=== PATIENT | male | born 1940 | race African-American/Black ===

== ENCOUNTER 2016-05-15 14:42 | Inpatient (IN) | payer MEDICARE ==
[~2016-05-15] VITALS: Ht 170.2 cm; Wt 104.3 kg
[2016-05-15] MEDS ORDERED: ASPIRIN81 MG ORAL (14:43)
[2016-05-15] MEDS ORDERED: ATORVASTATIN CA20 MG ORAL (14:43)
--- NOTE | 2016-05-15 14:53 | Emergency Room Report ---
History of Present Illness General Chief Complaint: Generalized Weakness Source: Patient, EMS Present Illness HPI Patient is a 75-year-old male who presented after having increased generalized weakness. Patient had been falling the past few days he had been having increased difficulty with ambulation. The had recent onset of productive cough as well as lower extremity weakness. He denies prior history of irregular heartbeat. The patient was brought in by EMS and was noted to have irregular rhythm on EKG testing.Patient had prior CVA many years ago.The patient also had a fall in the bathtub.The patient denies taking anticoagulation. Allergies: Coded Allergies: No Known Allergies (Unverified , 05/15/16) Patient History Past Medical History: see triage record Reviewed Nursing Documentation: PMH: Agreed, PSxH: Agreed Nursing Documentation-PMH Hx Hypertension: Yes Hx Cerebrovascular Accident: Yes Review of Systems All Other Systems: negative except mentioned in HPI Physical Exam Vital Signs Date Time Temp Pulse Resp B/P Pulse Ox O2 Delivery O2 Flow Rate FiO2 05/15/16 14:37 98.2 80 16 137/88 98 Sp02 EP Interpretation: reviewed, normal General Appearance: normal inspection, well appearing, no apparent distress, alert, GCS 15 Head: atraumatic ENT: normal ENT inspection, hearing grossly normal, normal voice Neck: normal inspection, full range of motion, supple, no bony tend Respiratory: normal inspection, lungs clear, normal breath sounds, no respiratory distress, no retraction, no wheezing Cardiovascular #1: regular rate, rhythm, no edema Gastrointestinal: normal inspection, normal bowel sounds, non tender, soft, no guarding, no hernia Genitourinary: no CVA tenderness Musculoskeletal: normal inspection, back normal, normal range of motion, swelling - bilateral lower leg swelling Neurologic: normal inspection, alert, oriented x3, responsive, outside solar sales consultant III-XII nml as tested, speech normal Psychiatric: normal inspection, judgement/insight normal, mood/affect normal Skin: normal inspection, normal color, no rash Medical Decision Making Diagnostic Impression: Primary Impression: Severe sepsis Additional Impressions: Elevated PSA Hypertension Generalized weakness Fall Influenza A ER Course Patient presented for generalized weakness. Patient presented for generalized weakness. Differential diagnosis included was not limited to anemia, urinary tract infection, electrolyte abnormality, hypothyroidism, myocardial infarction , myasthenia gravis, dehydration, among others. Because of complexity of patient's case laboratory testing and imaging studies were ordered.Patient was noted to have a prior history of prostate disease with an elevated PSA. CT the head read by radiology showed old infarct without evident acute hemorrhage Patient was noted to have elevated white blood count as well as lactic acid level consistent with severe sepsis. The influenza A and B. were noted to be positive. The patient was started on IV fluids. Repeat lactic acid level was somewhat improved. The patient was apparently started on IV antibiotics. Dr. Luis Alcala was contacted and requested the patient be admitted to Dr. Velásquez for further evaluation and treatment. Labs Test 05/15/16 15:50 05/15/16 16:40 05/15/16 17:17 Sodium Level 136 mEQ/L (135-145) Potassium Level 3.4 mEQ/L (3.4-4.9) Chloride Level 94 mEQ/L (98-107) Carbon Dioxide Level 25 mEQ/L (20-30) Anion Gap 17 (5-15) Blood Urea Nitrogen 19 mg/dL (7-23) Creatinine 1.7 mg/dL (0.7-1.2) Estimat Glomerular Filtration Rate mL/min (>60) Glucose Level 114 mg/dL (74-106) Calcium Level 8.8 mg/dL (8.6-10.2) Total Bilirubin 0.5 mg/dL (0.0-1.2) Aspartate Amino Transf (AST/SGOT) 18 U/L (5-40) Alanine Aminotransferase (ALT/SGPT) 12 U/L (3-41) Alkaline Phosphatase 68 U/L (40-129) Total Creatine Kinase 307 U/L (38-174) Creatine Kinase MB 1.6 ng/mL (< 6.7) Creatine Kinase MB Relative Index 0.5 Troponin I < 0.30 ng/mL (<=0.30) Pro-B-Type Natriuretic Peptide 1250 pg/mL (0-450) Total Protein 6.9 g/dL (6.6-8.7) Albumin 3.1 g/dL (3.5-5.2) Globulin 3.8 g/dL Albumin/Globulin Ratio 0.8 (1.0-2.7) White Blood Count 5.8 K/UL (4.8-10.8) Red Blood Count 4.98 M/UL (4.70-6.10) Hemoglobin 14.0 G/DL (14.2-18.0) Hematocrit 43.8 % (42.0-52.0) Mean Corpuscular Volume 88 FL (80-99) Mean Corpuscular Hemoglobin 28.1 PG (27.0-31.0) Mean Corpuscular Hemoglobin Concent 32.0 G/DL (32.0-36.0) Red Cell Distribution Width 13.0 % (11.6-14.8) Platelet Count 173 K/UL (150-450) Mean Platelet Volume 10.1 FL (6.5-10.1) Neutrophils (%) (Auto) 83.7 % (45.0-75.0) Lymphocytes (%) (Auto) 5.6 % (20.0-45.0) Monocytes (%) (Auto) 9.3 % (1.0-10.0) Eosinophils (%) (Auto) 0.0 % (0.0-3.0) Basophils (%) (Auto) 1.4 % (0.0-2.0) Lactic Acid Level 1.80 mmol/L (0.66-2.22) EKG Diagnostic Results Rate: other - afib rate 96\ ST Segments: no acute changes ASA given to the pt in ED: No Rhythm Strip Diag. Results EP Interpretation: yes Rhythm: no ectopy, other - afib rvr 90s Chest X-Ray Diagnostic Results EP Interpretation: Yes Findings: no effusion, no pneumothorax, other - right lung consolidation Last Vital Signs Date Time Temp Pulse Resp B/P Pulse Ox O2 Delivery O2 Flow Rate FiO2 05/15/16 14:37 98.2 80 16 137/88 98 Status: unchanged Disposition: ADMITTED INPATIENT Condition: Serious Jostin Sanford May 15, 2016 14:53
[2016-05-15 14:59] VITALS: BP 137/88
[2016-05-15] MEDS ORDERED: Ampicillin/Sulbactam Sod 3 GM in NS 100 ML IV SCH (15:00)
[2016-05-15] MEDS ORDERED: Unasyn 3gm Inj ONE (15:57)
[2016-05-15 16:15] VITALS: BP 159/77
[2016-05-15 16:34] LABS: TROPONIN I < 0.30 ng/mL (<=0.30)
[2016-05-15 16:37] LABS: ALANINE AMINOTRANSFERASE 12 U/L (3-41); ALBUMIN/GLOBULIN RATIO 0.8 (1.0-2.7); ANION GAP 17 (5-15); ASPARTATE AMINO TRANSFERASE 18 U/L (5-40); CALCIUM 8.8 mg/dL (8.6-10.2); CARBON DIOXIDE 25 mEQ/L (20-30); CHLORIDE 94 mEQ/L (98-107); CREATININE 1.7 mg/dL (0.7-1.2); HEMOLYSIS 8; POTASSIUM 3.4 mEQ/L (3.4-4.9); SODIUM 136 mEQ/L (135-145); TOTAL PROTEIN 6.9 g/dL (6.6-8.7)
[2016-05-15 16:41] LABS: REFLEX LACTIC ACID YES OR NO YES
[2016-05-15 16:47] LABS: CKMB 1.6 ng/mL (< 6.7)
[2016-05-15 17:30] LABS: BASOPHILS % (AUTO) 1.4 % (0.0-2.0); LYMPHOCYTES % (AUTO) 5.6 % (20.0-45.0); MEAN CORPUSCULAR HEMOGLOBIN 28.1 PG (27.0-31.0); MEAN CORPUSCULAR VOLUME 88 FL (80-99); MEAN PLATELET VOLUME 10.1 FL (6.5-10.1); MONOCYTES % (AUTO) 9.3 % (1.0-10.0); NEUTROPHILS % (AUTO) 83.7 % (45.0-75.0); PLATELET COUNT 173 K/UL (150-450); RED BLOOD COUNT 4.98 M/UL (4.70-6.10); WHITE BLOOD COUNT 5.8 K/UL (4.8-10.8)
[2016-05-15 17:54] VITALS: BP 156/69
[2016-05-15] MEDS ORDERED: Oseltamivir 75mg cap ORAL SCH (18:15)
[2016-05-15 18:22] LABS: APPEARANCE,URINE CLEAR; KETONES,URINE NEGATIVE (NEGATIVE); LEUKOCYTE ESTERASE ,URINE NEGATIVE (NEGATIVE); NITRITE,URINE NEGATIVE (NEGATIVE); PH,URINE 6 (4.5-8.0); PROTEIN,URINE 2+ (NEGATIVE); UROBILINOGEN,URINE NORMAL MG/DL (0.0-1.0)
[2016-05-15 18:29] LABS: RBC,URINE 0-2 /HPF (0 - 0); WBC,URINE 0-2 /HPF (0 - 0)
[2016-05-15 18:30] LABS: BACTERIA,URINE OCCASIONAL /HPF
[2016-05-15 18:59] VITALS: BP 142/73
[2016-05-15 20:00] VITALS: BP 142/80
[2016-05-15] MEDS ORDERED: Miralax 17gm pkt ORAL PRN (21:15)
[2016-05-16] VITALS: BP 144/85
[2016-05-16] MEDS ORDERED: DuoNeb 0.5-3(2.5)mg/3ml neb HHN PRN (00:30)
[2016-05-16] MEDS ORDERED: Guaifenesin/DM 10ml syrup ORAL PRN (00:45)
[2016-05-16] MEDS: DuoNeb 0.5-3(2.5)mg/3ml neb HHN SCH ×4 (01:20→19:05)
[2016-05-16 04:00] VITALS: BP 135/83
[2016-05-16 05:30] LABS: PSA TOTAL 11.8 ng/mL (< 4.5); THYROID STIMULATING HORMONE 0.653 uIU/mL (0.300-4.500)
[2016-05-16 05:41] LABS: ALANINE AMINOTRANSFERASE 13 U/L (3-41); ANION GAP 21 (5-15); ASPARTATE AMINO TRANSFERASE 26 U/L (5-40); BILIRUBIN,DIRECT 0.1 mg/dL (0.1-0.3); CALCIUM 8.5 mg/dL (8.6-10.2); CARBON DIOXIDE 23 mEQ/L (20-30); CHLORIDE 91 mEQ/L (98-107); CREATININE 1.7 mg/dL (0.7-1.2); HEMOLYSIS 35; POTASSIUM 2.9 mEQ/L (3.4-4.9); SODIUM 135 mEQ/L (135-145); TOTAL PROTEIN 6.7 g/dL (6.6-8.7)
[2016-05-16 05:56] LABS: MEAN CORPUSCULAR HEMOGLOBIN 28.5 PG (27.0-31.0); MEAN CORPUSCULAR HGB CONC 32.2 G/DL (32.0-36.0); MEAN CORPUSCULAR VOLUME 88 FL (80-99); MEAN PLATELET VOLUME 9.3 FL (6.5-10.1); PLATELET COUNT 155 K/UL (150-450); RED BLOOD COUNT 4.61 M/UL (4.70-6.10); RED CELL DISTRIBUTION WIDTH 12.4 % (11.6-14.8); WHITE BLOOD COUNT 11.1 K/UL (4.8-10.8)
[2016-05-16] MEDS ORDERED: KCl 10% 40mEq/30ml liquid ORAL ONE (07:30)
[2016-05-16 08:00] VITALS: BP 142/71
[2016-05-16] MEDS: Docusate 100mg cap ORAL SCH ×2 (08:31→17:34)
[2016-05-16] MEDS: Aspirin Baby 81mg ORAL SCH (08:31)
[2016-05-16] MEDS: Heparin 5000 units/ml inj SUBQ SCH ×2 (08:32→21:40)
[2016-05-16 08:36] LABS: BAND NEUTROPHILS % (MANUAL) 12 % (0-8); BASOPHILS % (MANUAL) 0 % (0-2); EOSINOPHILS % (MANUAL) 0 % (0-3); LYMPHOCYTES % (MANUAL) 2 % (20-45); NEUTROPHILS % (MANUAL) 83 % (45-75); PLATELET ESTIMATE ADEQUATE; PLATELET MORPHOLOGY NORMAL; TOTAL CELLS COUNTED 100
--- NOTE | 2016-05-16 08:52 | Diagnostic Imaging Report ---
Indications: Bilateral leg weakness Technique: Spiral acquisitions obtained through the brain. Angled axial and coronal 5 x 5 mm slices were reconstructed. Total dose length product 1369 mGycm. CTDI vol(s) 70 mGy Comparison: None Findings: Areas of encephalomalacia are seen in the bilateral occipital lobes, larger on the left than on the right, consistent with old infarct. There is an old infarct in the left inferior frontal deep white matter extending into basal ganglia. There is mild age-related enlargement of the ventricles and extra axial CSF spaces. There is considerable chronic periventricular the white matter ischemic change. The calvarium is intact. The mastoids are clear. There is minimal disease within the sphenoid sinuses. Impression: Bilateral old occipital and left basal ganglia infarcts. Mild chronic and age-related changes, as described Negative for acute intracranial bleed or mass effect Sinus disease This agrees with the preliminary interpretation provided overnight by Dr. Nichole The CT scanner at [facility] is accredited by the [employer] and the scans are performed using protocols designed to limit radiation exposure to as low as reasonably achievable to attain images of sufficient resolution adequate for diagnostic evaluation.
[2016-05-16] MEDS: Oseltamivir 75mg cap ORAL SCH ×2 (09:01→17:47)
--- NOTE | 2016-05-16 10:25 | Diagnostic Imaging Report ---
Indication: SOB Technique: One view of the chest Comparison: none Findings: Atelectasis or patchy consolidation is present at the right lung base. There is elevation of the left hemidiaphragm. The heart is enlarged. The pleural spaces are clear Impression: Right basilar atelectasis or consolidation Elevated left hemidiaphragm
--- NOTE | 2016-05-16 10:43 | History and Physical ---
History of Present Illness General Date patient seen: May 16, 2016 Time patient seen: 10:38 Reason for Hospitalization: Generalized Weakness Present Illness HPI 75-year-old male who presented with increased generalized weakness. Patient had been falling the past few days he had been having increased difficulty with ambulation. The had recent onset of productive cough as well as lower extremity weakness. He denies prior history of irregular heartbeat. The patient was brought in by EMS and was noted to have irregular rhythm on EKG testing.Patient had prior CVA many years ago.The patient also had a fall in the bathtub.The patient denies taking anticoagulation. In ED, [facility] neg. Influenza pos. Allergies: Coded Allergies: No Known Allergies (Unverified , 05/15/16) Medication History Scheduled Aspirin* (Aspirin*), 81 MG ORAL DAILY, (Reported) Atorvastatin Calcium* (Atorvastatin Calcium*), 20 MG ORAL BEDTIME, (Reported) Patient History Healthcare decision maker Resuscitation status Full Code Advanced Directive on File Past Medical/Surgical History Past Medical/Surgical History: (1) CVA (cerebral vascular accident) (2) Elevated PSA (3) Hypertension Family History Family History: Patient reports no known family medical history. Social History Social History: (1) No significant social history Review of Systems All Other Systems: negative except mentioned in HPI Physical Exam General Appearance: no apparent distress, alert HEENT: normocephalic, atraumatic, anicteric, mucous membranes moist, PERRL, EOMI, pharynx normal, no JVD Neck: non-tender, supple Respiratory/Chest: lungs clear, normal breath sounds, no respiratory distress, no accessory muscle use Cardiovascular/Chest: normal peripheral pulses, normal rate, regular rhythm Abdomen: normal bowel sounds, non tender, soft, no mass Extremities: non-tender, normal inspection Skin Exam: warm/dry Neurologic: marketing graphics specialist II-XII grossly normal, no motor/sensory deficits, alert Musculoskeletal: normal muscle bulk Last 24 Hour Vital Signs Date Time Temp Pulse Resp B/P Pulse Ox O2 Delivery O2 Flow Rate FiO2 05/16/16 10:15 98.2 05/16/16 08:00 102.2 109 22 142/71 94 Nasal Cannula 2.0 05/16/16 07:26 Nasal Cannula 2.0 05/16/16 07:26 96 20 98 Nasal Cannula 2.0 05/16/16 07:25 99 22 93 Nasal Cannula 1/2/17 04:31 103 05/16/16 04:00 98.1 112 20 135/83 92 Room Air 05/16/16 01:26 89 18 95 Nasal Cannula 2.0 05/16/16 01:22 Nasal Cannula 2.0 05/16/16 01:22 93 Nasal Cannula 2.0 05/16/16 01:19 87 18 Room Air 05/16/16 01:18 87 18 91 Room Air 05/16/16 00:07 111 05/16/16 00:00 97.3 94 22 144/85 92 Room Air 05/15/16 20:56 98 05/15/16 20:00 102.0 122 18 142/80 92 Room Air 05/15/16 19:34 98.2 95 22 142/73 96 Room Air 05/15/16 18:59 98.2 95 22 142/73 96 Room Air 05/15/16 18:09 156/69 05/15/16 17:54 98.2 99 25 156/69 96 Room Air 05/15/16 16:15 98.2 91 28 159/77 96 Room Air 05/15/16 14:59 98.2 16 137/88 98 05/15/16 14:37 98.2 80 16 137/88 98 Intake and Output 05/15/16 05/16/16 19:00 07:00 Intake Total 100 ml 100 ml Output Total 5 ml Balance 100 ml 95 ml Intake Oral 100 ml IV Total 100 ml Output Urine Total 5 ml # Voids 1 Laboratory Tests Test 05/15/16 15:50 05/15/16 16:40 05/15/16 17:17 05/15/16 18:10 Sodium Level 136 mEQ/L (135-145) Potassium Level 3.4 mEQ/L (3.4-4.9) Chloride Level 94 mEQ/L (98-107) L Carbon Dioxide Level 25 mEQ/L (20-30) Anion Gap 17 (5-15) H Blood Urea Nitrogen 19 mg/dL (7-23) Creatinine 1.7 mg/dL (0.7-1.2) H Estimat Glomerular Filtration Rate mL/min (>60) Glucose Level 114 mg/dL (74-106) H Lactic Acid Level 2.10 mmol/L (0.66-2.22) 1.80 mmol/L (0.66-2.22) Calcium Level 8.8 mg/dL (8.6-10.2) Total Bilirubin 0.5 mg/dL (0.0-1.2) Aspartate Amino Transf (AST/SGOT) 18 U/L (5-40) Alanine Aminotransferase (ALT/SGPT) 12 U/L (3-41) Alkaline Phosphatase 68 U/L (40-129) Total Creatine Kinase 307 U/L (38-174) H Creatine Kinase MB 1.6 ng/mL (< 6.7) Creatine Kinase MB Relative Index 0.5 Troponin I < 0.30 ng/mL (<=0.30) Pro-B-Type Natriuretic Peptide 1250 pg/mL (0-450) H Total Protein 6.9 g/dL (6.6-8.7) Albumin 3.1 g/dL (3.5-5.2) L Globulin 3.8 g/dL Albumin/Globulin Ratio 0.8 (1.0-2.7) L White Blood Count 5.8 K/UL (4.8-10.8) Red Blood Count 4.98 M/UL (4.70-6.10) Hemoglobin 14.0 G/DL (14.2-18.0) L Hematocrit 43.8 % (42.0-52.0) Mean Corpuscular Volume 88 FL (80-99) Mean Corpuscular Hemoglobin 28.1 PG (27.0-31.0) Mean Corpuscular Hemoglobin Concent 32.0 G/DL (32.0-36.0) Red Cell Distribution Width 13.0 % (11.6-14.8) Platelet Count 173 K/UL (150-450) Mean Platelet Volume 10.1 FL (6.5-10.1) Neutrophils (%) (Auto) 83.7 % (45.0-75.0) H Lymphocytes (%) (Auto) 5.6 % (20.0-45.0) L Monocytes (%) (Auto) 9.3 % (1.0-10.0) Eosinophils (%) (Auto) 0.0 % (0.0-3.0) Basophils (%) (Auto) 1.4 % (0.0-2.0) Urine Color Pale yellow Urine Appearance Clear Urine pH 6 (4.5-8.0) Urine Specific [place] 1.010 (1.005-1.035) Urine Protein 2+ (NEGATIVE) H Urine Glucose (UA) Negative (NEGATIVE) Urine Ketones Negative (NEGATIVE) Urine Occult Blood 5+ (NEGATIVE) H Urine Nitrite Negative (NEGATIVE) Urine Bilirubin Negative (NEGATIVE) Urine Urobilinogen Normal MG/DL (0.0-1.0) Urine Leukocyte Esterase Negative (NEGATIVE) Urine RBC 0-2 /HPF (0 - 0) H Urine WBC 0-2 /HPF (0 - 0) Urine Squamous Epithelial Cells None /LPF (NONE/OCC) Urine Bacteria Occasional /HPF (NONE) Test 05/16/16 03:30 White Blood Count 11.1 K/UL (4.8-10.8) #H Red Blood Count 4.61 M/UL (4.70-6.10) L Hemoglobin 13.1 G/DL (14.2-18.0) L Hematocrit 40.7 % (42.0-52.0) L Mean Corpuscular Volume 88 FL (80-99) Mean Corpuscular Hemoglobin 28.5 PG (27.0-31.0) Mean Corpuscular Hemoglobin Concent 32.2 G/DL (32.0-36.0) Red Cell Distribution Width 12.4 % (11.6-14.8) Platelet Count 155 K/UL (150-450) Mean Platelet Volume 9.3 FL (6.5-10.1) Neutrophils (%) (Auto) % (45.0-75.0) Lymphocytes (%) (Auto) % (20.0-45.0) Monocytes (%) (Auto) % (1.0-10.0) Eosinophils (%) (Auto) % (0.0-3.0) Basophils (%) (Auto) % (0.0-2.0) Differential Total Cells Counted 100 Neutrophils % (Manual) 83 % (45-75) H Lymphocytes % (Manual) 2 % (20-45) L Monocytes % (Manual) 3 % (1-10) Eosinophils % (Manual) 0 % (0-3) Basophils % (Manual) 0 % (0-2) Band Neutrophils 12 % (0-8) H Platelet Estimate Adequate Platelet Morphology Normal Red Blood Cell Morphology Normal Sodium Level 135 mEQ/L (135-145) Potassium Level 2.9 mEQ/L (3.4-4.9) L Chloride Level 91 mEQ/L (98-107) L Carbon Dioxide Level 23 mEQ/L (20-30) Anion Gap 21 (5-15) H Blood Urea Nitrogen 20 mg/dL (7-23) Creatinine 1.7 mg/dL (0.7-1.2) H Estimat Glomerular Filtration Rate mL/min (>60) Glucose Level 123 mg/dL (74-106) H Calcium Level 8.5 mg/dL (8.6-10.2) L Total Bilirubin 0.4 mg/dL (0.0-1.2) Direct Bilirubin 0.1 mg/dL (0.1-0.3) Aspartate Amino Transf (AST/SGOT) 26 U/L (5-40) Alanine Aminotransferase (ALT/SGPT) 13 U/L (3-41) Alkaline Phosphatase 62 U/L (40-129) Total Protein 6.7 g/dL (6.6-8.7) Albumin 2.9 g/dL (3.5-5.2) L Prostate Specific Antigen 11.8 ng/mL (< 4.5) H Thyroid Stimulating Hormone (TSH) 0.653 uIU/mL (0.300-4.500) Microbiology Date/Time Source Procedure Growth Status 05/15/16 17:20 Nasal Nares Influenza Types A,B Antigen ([place]) - Final Complete Height (Feet): 5 Height (Inches): 7.00 Weight (Pounds): 230 Medications Current Medications Medications (Trade) Dose Ordered Sig/Vini Route PRN Reason Start Time Stop Time Status Last Admin Dose Admin Acetaminophen (Tylenol) 650 mg Q6H PRN ORAL Mild Pain/Temp > 100.5 05/15/16 21:15 06/14/16 21:14 05/16/16 08:31 Albuterol/ Ipratropium (DuoNeb 0.5-3(2.5)mg/3ml) 3 ml Q4H PRN HHN Shortness of Breath 05/16/16 00:30 05/21/16 00:29 Albuterol/ Ipratropium (DuoNeb 0.5-3(2.5)mg/3ml) 3 ml Q6HRT HHN 05/16/16 01:00 05/21/16 00:59 05/16/16 07:22 Aspirin (ASA) 81 mg DAILY ORAL 05/16/16 09:00 06/15/16 08:59 05/16/16 08:31 Atorvastatin Calcium (Lipitor) 20 mg BEDTIME ORAL 05/16/16 21:00 06/15/16 20:59 Docusate Sodium (Colace) 100 mg TWICE A DAY ORAL 05/16/16 09:00 06/15/16 08:59 05/16/16 08:31 Guaifenesin/ Dextromethorphan (Robitussin DM Syrup) 10 ml Q4H PRN ORAL For Cough 05/16/16 00:45 06/15/16 00:44 Heparin Sodium (Porcine) (Heparin 5000 units/ml) 5,000 units EVERY 12 HOURS SUBQ 05/16/16 09:00 06/15/16 08:59 05/16/16 08:32 Ondansetron HCl (Zofran) 4 mg EVERY 8 HOURS PRN IVP Nausea & Vomiting 05/15/16 21:15 06/14/16 21:14 Oseltamivir Phosphate (Tamiflu) 75 mg TWICE A DAY ORAL 05/16/16 09:00 05/21/16 08:59 05/16/16 09:01 Polyethylene Glycol (Miralax) 17 gm DAILY PRN ORAL Constipation 05/15/16 21:15 06/14/16 21:14 Assessment/Plan Problem List: (1) Sepsis ICD Codes: A41.9 - Sepsis, unspecified organism SNOMED: 10560415 (2) Generalized weakness ICD Codes: R53.1 - Weakness SNOMED: 11164480 (3) Hypertension ICD Codes: I10 - Essential (primary) hypertension SNOMED: 99359183 (4) Fall ICD Codes: W19.XXXA - Unspecified fall, initial encounter SNOMED: 6856795, 154306373 (5) Elevated PSA ICD Codes: R97.20 - Elevated prostate specific antigen [PSA] SNOMED: 818515412, 660894740 (6) Influenza A ICD Codes: J10.1 - Influenza due to other identified influenza virus with other respiratory manifestations SNOMED: 353657635 (7) CVA (cerebral vascular accident) ICD Codes: I63.9 - Cerebral infarction, unspecified SNOMED: 245536325 Status: progressing Assessment/Plan admit to tele IVF Tamiflu PT/OT urol c/s per pcp request cont asa/statin hold home bp Tracy Mcbride M.D. May 16, 2016 10:43
[2016-05-16 12:00] VITALS: BP 151/81
[2016-05-16] MEDS ORDERED: Metoprolol 25mg tab ORAL ONE (12:15)
[2016-05-16 16:11] VITALS: BP_SYST 134; BP_SYST 150; BP_DIAS 50; BP_DIAS 81
[2016-05-16 20:00] VITALS: BP 116/63
[2016-05-16] MEDS ORDERED: Amiodarone 200mg tab ORAL ONE (21:00)
[2016-05-16 21:33] LABS: TROPONIN I < 0.30 ng/mL (<=0.30)
[2016-05-16] MEDS: Diltiazem 25mg/5ml IV PRN (22:13)
[2016-05-17] VITALS: BP 155/80
[2016-05-17] MEDS: Levalbuterol Inh UD 1.25mg/0.5ml HHN SCH ×3 (01:12→13:43)
[2016-05-17] MEDS: Diltiazem 25mg/5ml IV PRN ×4 (01:15→12:09)
[2016-05-17 04:00] VITALS: BP 168/90
[2016-05-17 05:57] LABS: MEAN CORPUSCULAR HEMOGLOBIN 28.4 PG (27.0-31.0); MEAN CORPUSCULAR HGB CONC 32.1 G/DL (32.0-36.0); MEAN CORPUSCULAR VOLUME 89 FL (80-99); MEAN PLATELET VOLUME 8.8 FL (6.5-10.1); PLATELET COUNT 130 K/UL (150-450); RED BLOOD COUNT 5.77 M/UL (4.70-6.10); RED CELL DISTRIBUTION WIDTH 12.9 % (11.6-14.8); WHITE BLOOD COUNT 8.6 K/UL (4.8-10.8)
[2016-05-17] MEDS: Amiodarone 200mg tab ORAL SCH ×3 (06:09→21:38)
[2016-05-17 06:18] LABS: ANION GAP 20 (5-15); CALCIUM 8.9 mg/dL (8.6-10.2); CARBON DIOXIDE 25 mEQ/L (20-30); CHLORIDE 91 mEQ/L (98-107); CREATININE 1.6 mg/dL (0.7-1.2); HEMOLYSIS 116; MAGNESIUM 1.9 mg/dL (1.7-2.5); POTASSIUM 3.7 mEQ/L (3.4-4.9); SODIUM 136 mEQ/L (135-145)
[2016-05-17 07:02] LABS: TROPONIN I < 0.30 ng/mL (<=0.30)
[2016-05-17 08:00] VITALS: BP 127/84
[2016-05-17 08:46] LABS: BAND NEUTROPHILS % (MANUAL) 15 % (0-8); BASOPHILS % (MANUAL) 0 % (0-2); EOSINOPHILS % (MANUAL) 0 % (0-3); LYMPHOCYTES % (MANUAL) 9 % (20-45); NEUTROPHILS % (MANUAL) 71 % (45-75); PLATELET ESTIMATE ADEQUATE; PLATELET MORPHOLOGY NORMAL; TOTAL CELLS COUNTED 100
[2016-05-17] MEDS: Aspirin Baby 81mg ORAL SCH (09:00)
[2016-05-17] MEDS: Docusate 100mg cap ORAL SCH ×2 (09:00→19:12)
[2016-05-17] MEDS: Oseltamivir 75mg cap ORAL SCH ×2 (09:00→19:12)
[2016-05-17] MEDS: Heparin 5000 units/ml inj SUBQ SCH ×2 (10:20→21:39)
[2016-05-17 12:00] VITALS: BP 126/77
--- NOTE | 2016-05-17 12:46 | Consultation ---
History of Present Illness General Date patient seen: May 17, 2016 Time patient seen: 12:43 Chief Complaint: Generalized Weakness Present Illness HPI 75 yo male admitted for what seems to be severe flu, weakness. Patient had a PSA checked for some reason and came back at 11. No report or known prior elevated PSA. Feels well more or less from a urinary standpoint. Patient has no family history of prostate cancer. Allergies: Coded Allergies: No Known Allergies (Unverified , 05/15/16) Medication History Scheduled Aspirin* (Aspirin*), 81 MG ORAL DAILY, (Reported) Atorvastatin Calcium* (Atorvastatin Calcium*), 20 MG ORAL BEDTIME, (Reported) Patient History History Provided By: Patient, Family Member Healthcare decision maker Resuscitation status Full Code Advanced Directive on File Past Medical/Surgical History Past Medical/Surgical History: (1) Sepsis (2) Influenza A (3) CVA (cerebral vascular accident) (4) Hypertension Review of Systems Constitutional: Reports: weakness Eye: Denies: acuity changes, blurred vision, discharge, double vision, eye pain , no symptoms, nose congestion, nose pain, other, see HPI, tearing ENT: Denies: ear discharge, ear pain, hearing loss, mouth pain, nasal discharge , no symptoms, nose congestion, nose pain, other, see HPI, throat pain, throat swelling Respiratory: Denies: CARROLL, cough, no symptoms, orthopnea, other, see HPI, shortness of breath, sputum, stridor, wheezing Cardiovascular: Denies: PND, chest pain, edema, no symptoms, other, palpitations, see HPI, syncope Gastrointestinal: Denies: abdominal pain, constipation, diarrhea, hematemesis, melena, nausea, no symptoms, other, see HPI, vomiting Genitourinary: Denies: discharge, dysuria, frequency, hematuria, incontinence, no symptoms, other, pain, retention, see HPI, urgency, vag bleed/dc Musculoskeletal: Denies: back pain, gout, joint pain, joint swelling, muscle pain, muscle stiffness, no symptoms, other, see HPI Skin: Denies: change in color, change in hair/nails, dryness, lesions, no symptoms, other, rash, see HPI Psychiatric: Denies: HI, SI, anxiety, depressed feelings, emotional problems, hallucinations, no symptoms, other, prior hx, see HPI Neurological: Denies: dizziness, focal weakness, headache, no symptoms, numbness, other, paresthesia, see HPI, seizure, syncope, tingling, tremors Endocrine: Denies: excessive sweating, flushing, increased thirst, increased urine, intolerance to temperature, no symptoms, other, see HPI, unexplained weight loss Hematologic/Lymphatic: Denies: anemia, blood clots, diathesis, easy bleeding, easy bruising, no symptoms, other, see HPI, swollen glands Physical Exam General Appearance: mild distress Cardiovascular/Chest: normal rate Abdomen: soft Extremities: normal range of motion, non-tender Neurologic: no motor/sensory deficits Last 24 Hour Vital Signs Date Time Temp Pulse Resp B/P Pulse Ox O2 Delivery O2 Flow Rate FiO2 05/17/16 12:09 105 126/77 05/17/16 10:20 161 127/84 05/17/16 08:00 99.0 113 21 127/84 97 Nasal Cannula 2.0 05/17/16 07:43 165 05/17/16 07:14 160 20 99 Nasal Cannula 2.0 28 05/17/16 07:04 Nasal Cannula 2.0 28 05/17/16 07:04 95 Nasal Cannula 2.0 28 05/17/16 07:04 163 20 95 Nasal Cannula 2.0 28 05/17/16 04:57 156 168/90 05/17/16 04:00 156 05/17/16 04:00 99.0 159 20 168/90 94 Nasal Cannula 2.0 05/17/16 01:29 82 16 99 Nasal Cannula 2.0 05/17/16 01:15 166 155/80 05/17/16 01:12 110 16 97 Nasal Cannula 2.0 05/17/16 00:40 99.7 05/17/16 00:00 100.5 166 18 155/80 91 Nasal Cannula 2.0 05/17/16 00:00 165 05/16/16 22:13 145 116/63 05/16/16 20:00 164 05/16/16 20:00 99.1 145 14 116/63 92 Nasal Cannula 2.5 05/16/16 19:13 71 18 100 Nasal Cannula 2.0 05/16/16 19:08 97 Nasal Cannula 2.0 05/16/16 19:07 Nasal Cannula 2.0 05/16/16 19:07 58 16 97 Nasal Cannula 2.0 05/16/16 16:11 98.4 81 14 150/81 97 Nasal Cannula 2.5 05/16/16 16:00 104 05/16/16 14:41 87 18 100 Nasal Cannula 2.0 05/16/16 13:33 83 16 97 Nasal Cannula 2.0 Intake and Output 05/16/16 05/17/16 19:00 07:00 Intake Total 350 ml 240 ml Output Total 500 ml Balance 350 ml -260 ml Intake Oral 350 ml 240 ml Output Urine Total 500 ml # Voids 2 # Bowel Movements 2 Laboratory Tests Test 05/16/16 21:10 05/17/16 04:00 Troponin I < 0.30 ng/mL (<=0.30) < 0.30 ng/mL (<=0.30) White Blood Count 8.6 K/UL (4.8-10.8) Red Blood Count 5.77 M/UL (4.70-6.10) Hemoglobin 16.4 G/DL (14.2-18.0) Hematocrit 51.1 % (42.0-52.0) Mean Corpuscular Volume 89 FL (80-99) Mean Corpuscular Hemoglobin 28.4 PG (27.0-31.0) Mean Corpuscular Hemoglobin Concent 32.1 G/DL (32.0-36.0) Red Cell Distribution Width 12.9 % (11.6-14.8) Platelet Count 130 K/UL (150-450) L Mean Platelet Volume 8.8 FL (6.5-10.1) Neutrophils (%) (Auto) % (45.0-75.0) Lymphocytes (%) (Auto) % (20.0-45.0) Monocytes (%) (Auto) % (1.0-10.0) Eosinophils (%) (Auto) % (0.0-3.0) Basophils (%) (Auto) % (0.0-2.0) Differential Total Cells Counted 100 Neutrophils % (Manual) 71 % (45-75) Lymphocytes % (Manual) 9 % (20-45) L Monocytes % (Manual) 5 % (1-10) Eosinophils % (Manual) 0 % (0-3) Basophils % (Manual) 0 % (0-2) Band Neutrophils 15 % (0-8) H Platelet Estimate Adequate Platelet Morphology Normal Red Blood Cell Morphology Normal Sodium Level 136 mEQ/L (135-145) Potassium Level 3.7 mEQ/L (3.4-4.9) Chloride Level 91 mEQ/L (98-107) L Carbon Dioxide Level 25 mEQ/L (20-30) Anion Gap 20 (5-15) H Blood Urea Nitrogen 18 mg/dL (7-23) Creatinine 1.6 mg/dL (0.7-1.2) H Estimat Glomerular Filtration Rate mL/min (>60) Glucose Level 131 mg/dL (74-106) H Calcium Level 8.9 mg/dL (8.6-10.2) Magnesium Level 1.9 mg/dL (1.7-2.5) Height (Feet): 5 Height (Inches): 7.00 Weight (Pounds): 230 Medications Current Medications Medications (Trade) Dose Ordered Sig/Vini Route PRN Reason Start Time Stop Time Status Last Admin Dose Admin Acetaminophen (Tylenol) 650 mg Q6H PRN ORAL Mild Pain/Temp > 100.5 05/15/16 21:15 06/14/16 21:14 05/16/16 23:41 Amiodarone HCl (Cordarone) 400 mg EVERY 8 HOURS ORAL 05/17/16 06:00 06/16/16 05:59 05/17/16 06:09 Aspirin (ASA) 81 mg DAILY ORAL 05/16/16 09:00 06/15/16 08:59 05/16/16 08:31 Atorvastatin Calcium (Lipitor) 20 mg BEDTIME ORAL 05/16/16 21:00 06/15/16 20:59 05/16/16 21:37 Diltiazem HCl (Cardizem) 10 mg Q3H PRN IV HR > 100 05/16/16 22:00 06/15/16 21:59 05/17/16 12:09 Docusate Sodium (Colace) 100 mg TWICE A DAY ORAL 05/16/16 09:00 06/15/16 08:59 05/16/16 17:34 Guaifenesin/ Dextromethorphan (Robitussin DM Syrup) 10 ml Q4H PRN ORAL For Cough 05/16/16 00:45 06/15/16 00:44 05/16/16 18:50 Heparin Sodium (Porcine) (Heparin 5000 units/ml) 5,000 units EVERY 12 HOURS SUBQ 05/16/16 09:00 06/15/16 08:59 05/17/16 10:20 Levalbuterol HCl (Xopenex) 0.63 mg EVERY 6 HOURS HHN 05/17/16 00:00 05/22/16 00:00 05/17/16 07:04 Metoprolol Tartrate (Lopressor) 50 mg Q8HR ORAL 05/17/16 14:00 06/16/16 13:59 Ondansetron HCl (Zofran) 4 mg EVERY 8 HOURS PRN IVP Nausea & Vomiting 05/15/16 21:15 06/14/16 21:14 Oseltamivir Phosphate (Tamiflu) 75 mg TWICE A DAY ORAL 05/16/16 09:00 05/21/16 08:59 05/16/16 17:47 Polyethylene Glycol (Miralax) 17 gm DAILY PRN ORAL Constipation 05/15/16 21:15 06/14/16 21:14 Assessment/Plan Status: stable Assessment/Plan 75 yo male, flu positive with elevated PSA at 11. No prior labs available. unsure why patient had it checked inpatient. No family history. Counseled patient times of illness are worst times to check PSA and it should be an outpatient monitoring study. At this time, would not recommend any intervention. Only workup needed is outpatient repeating of PSA in 4-6 WEEKS when feeling better. Would not recommend prostate biopsy based on only one PSA. 1. repeat PSA in 4-6 weeks as outpatient. 2. no intervention currently. Esau Goode M.D. May 17, 2016 12:46
[2016-05-17] MEDS ORDERED: ATORVASTATIN CA20 MG ORAL (12:52)
[2016-05-17] MEDS ORDERED: FUROSEMIDE20 M1 ORAL (12:52)
[2016-05-17] MEDS ORDERED: NORCO 5-325 TA1 EACH ORAL (12:52)
[2016-05-17] MEDS ORDERED: CATAPRES-TTS 21 EACH TDERMAL (12:52)
[2016-05-17] MEDS ORDERED: SIMVASTATIN20 MG ORAL (12:52)
[2016-05-17] MEDS ORDERED: POTASSIUM CHLO20 ME2 ORAL (12:52)
[2016-05-17] MEDS ORDERED: XALATAN2.5 ML LEFT EYE ×2 (12:52)
[2016-05-17] MEDS ORDERED: METFORMIN HCL500 M1 ORAL (12:52)
[2016-05-17] MEDS ORDERED: METOPROLOL TAR100 M1 ORAL (12:52)
[2016-05-17 13:57] LABS: TROPONIN I < 0.30 ng/mL (<=0.30)
[2016-05-17] MEDS: Metoprolol 50mg tab ORAL SCH ×2 (14:41→21:37)
[2016-05-17 16:00] VITALS: BP 128/80
--- NOTE | 2016-05-17 17:03 | Diagnostic Imaging Report ---
Indication: Slurred speech altered mental status Technique: The head was imaged in a 1.5 Soha magnet. Sequences obtained include sagittal and axial T2 FLAIR, diffusion and ADC map. Comparison: None A limited study could be done due to motion. 3 sequences performed including diffusion show no evidence of diffusion restriction. No obvious mass effect or edema identified. Patchy T2 hyperintense signal noted in the periventricular white matter. 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 Considerable motion artifact is present. Impression: Incomplete study. Diffusion was performed and there is no evidence of acute CVA.
--- NOTE | 2016-05-17 18:58 | General Progress Note ---
Assessment/Plan Problem List: (1) Sepsis ICD Codes: A41.9 - Sepsis, unspecified organism SNOMED: 29989705 (2) Generalized weakness ICD Codes: R53.1 - Weakness SNOMED: 18323474 (3) Hypertension ICD Codes: I10 - Essential (primary) hypertension SNOMED: 22911725 (4) Fall ICD Codes: W19.XXXA - Unspecified fall, initial encounter SNOMED: 3579641, 950265116 (5) Elevated PSA ICD Codes: R97.20 - Elevated prostate specific antigen [PSA] SNOMED: 043457281, 011081901 (6) Influenza A ICD Codes: J10.1 - Influenza due to other identified influenza virus with other respiratory manifestations SNOMED: 135385192 (7) CVA (cerebral vascular accident) ICD Codes: I63.9 - Cerebral infarction, unspecified SNOMED: 213723077 (8) Atrial fibrillation with RVR ICD Codes: I48.91 - Unspecified atrial fibrillation SNOMED: 768410358201667 Assessment/Plan Status: progressing Assessment/Plan admit to [facility] c/s Cardiology cont metop, amio and prn dilt Tamiflu PT/OT urol c/s per pcp request; ntd cont asa/statin hold home bp meds Subjective Date patient seen: May 17, 2016 Time patient seen: 18:55 Allergies: Coded Allergies: No Known Allergies (Unverified , 05/15/16) Subjective no acute events o/n; breathing improved Objective Last 24 Hour Vital Signs Date Time Temp Pulse Resp B/P Pulse Ox O2 Delivery O2 Flow Rate FiO2 05/17/16 16:00 84 05/17/16 16:00 98.2 86 21 128/80 94 Nasal Cannula 2.0 05/17/16 14:41 78 126/77 05/17/16 13:53 78 18 99 Nasal Cannula 2.0 28 05/17/16 13:42 73 18 93 Nasal Cannula 2.0 28 05/17/16 12:09 105 126/77 05/17/16 12:00 88 05/17/16 12:00 98.2 88 20 126/77 94 Nasal Cannula 2.0 05/17/16 10:20 161 127/84 05/17/16 08:00 99.0 113 21 127/84 97 Nasal Cannula 2.0 05/17/16 07:43 165 05/17/16 07:14 160 20 99 Nasal Cannula 2.0 28 05/17/16 07:04 Nasal Cannula 2.0 28 05/17/16 07:04 95 Nasal Cannula 2.0 28 05/17/16 07:04 163 20 95 Nasal Cannula 2.0 28 05/17/16 04:57 156 168/90 05/17/16 04:00 156 05/17/16 04:00 99.0 159 20 168/90 94 Nasal Cannula 2.0 05/17/16 01:29 82 16 99 Nasal Cannula 2.0 05/17/16 01:15 166 155/80 05/17/16 01:12 110 16 97 Nasal Cannula 2.0 05/17/16 00:40 99.7 05/17/16 00:00 100.5 166 18 155/80 91 Nasal Cannula 2.0 05/17/16 00:00 165 05/16/16 22:13 145 116/63 05/16/16 20:00 164 05/16/16 20:00 99.1 145 14 116/63 92 Nasal Cannula 2.5 05/16/16 19:13 71 18 100 Nasal Cannula 2.0 05/16/16 19:08 97 Nasal Cannula 2.0 05/16/16 19:07 Nasal Cannula 2.0 05/16/16 19:07 58 16 97 Nasal Cannula 2.0 Intake and Output 05/16/16 05/17/16 19:00 07:00 Intake Total 350 ml 240 ml Output Total 500 ml Balance 350 ml -260 ml Intake Oral 350 ml 240 ml Output Urine Total 500 ml # Voids 2 # Bowel Movements 2 Laboratory Tests 05/16/16 21:10: Troponin I < 0.30 05/17/16 04:00: Troponin I < 0.30, White Blood Count 8.6, Red Blood Count 5.77, Hemoglobin 16.4 , Hematocrit 51.1, Mean Corpuscular Volume 89, Mean Corpuscular Hemoglobin 28.4 , Mean Corpuscular Hemoglobin Concent 32.1, Red Cell Distribution Width 12.9, Platelet Count 130L, Mean Platelet Volume 8.8, Neutrophils (%) (Auto) , Lymphocytes (%) (Auto) , Monocytes (%) (Auto) , Eosinophils (%) (Auto) , Basophils (%) (Auto) , Differential Total Cells Counted 100, Neutrophils % ( Manual) 71, Lymphocytes % (Manual) 9L, Monocytes % (Manual) 5, Eosinophils % ( Manual) 0, Basophils % (Manual) 0, Band Neutrophils 15H, Platelet Estimate Adequate, Platelet Morphology Normal, Red Blood Cell Morphology Normal, Sodium Level 136, Potassium Level 3.7, Chloride Level 91L, Carbon Dioxide Level 25, Anion Gap 20H, Blood Urea Nitrogen 18, Creatinine 1.6H, Estimat Glomerular Filtration Rate , Glucose Level 131H, Calcium Level 8.9, Magnesium Level 1.9 05/17/16 13:10: Troponin I < 0.30 Height (Feet): 5 Height (Inches): 7.00 Weight (Pounds): 230 Objective Physical Exam Physical Exam General Appearance: no apparent distress, alert; more awake today HEENT: normocephalic, atraumatic, anicteric, mucous membranes moist, PERRL, EOMI, pharynx normal, no JVD Neck: non-tender, supple Respiratory/Chest: lungs clear, normal breath sounds, no respiratory distress, no accessory muscle use Cardiovascular/Chest: normal peripheral pulses, normal rate, regular rhythm Abdomen: normal bowel sounds, non tender, soft, no mass Extremities: non-tender, normal inspection Skin Exam: warm/dry Neurologic: water quality 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 II-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 grossly normal, no motor/sensory deficits, alert Musculoskeletal: normal muscle bulk Last 24 Hour Vital Signs Date Time Temp Pulse Resp B/P Pulse Ox O2 Delivery O2 Flow Rate FiO2 05/16/16 10:15 98.2 05/16/16 08:00 102.2 109 22 142/71 94 Nasal Cannula 2.0 05/16/16 07:26 Nasal Cannula 2.0 05/16/16 07:26 96 20 98 Nasal Cannula 2.0 05/16/16 07:25 99 22 93 Nasal Cannula 05/16/16 04:31 103 05/16/16 04:00 98.1 112 20 135/83 92 Room Air 05/16/16 01:26 89 18 95 Nasal Cannula 2.0 05/16/16 01:22 Nasal Cannula 2.0 05/16/16 01:22 93 Nasal Cannula 2.0 05/16/16 01:19 87 18 Room Air 05/16/16 01:18 87 18 91 Room Air 05/16/16 00:07 111 05/16/16 00:00 97.3 94 22 144/85 92 Room Air 05/15/16 20:56 98 05/15/16 20:00 102.0 122 18 142/80 92 Room Air 05/15/16 19:34 98.2 95 22 142/73 96 Room Air 05/15/16 18:59 98.2 95 22 142/73 96 Room Air 05/15/16 18:09 156/69 05/15/16 17:54 98.2 99 25 156/69 96 Room Air 05/15/16 16:15 98.2 91 28 159/77 96 Room Air 05/15/16 14:59 98.2 16 137/88 98 05/15/16 14:37 98.2 80 16 137/88 98 Intake and Output 05/15/16 05/16/16 19:00 07:00 Intake Total 100 ml 100 ml Output Total 5 ml Balance 100 ml 95 ml Intake Oral 100 ml IV Total 100 ml Output Urine Total 5 ml # Voids 1 Laboratory Tests Test 05/15/16 15:50 05/15/16 16:40 05/15/16 17:17 05/15/16 18:10 Sodium Level 136 mEQ/L (135-145) Potassium Level 3.4 mEQ/L (3.4-4.9) Chloride Level 94 mEQ/L (98-107) L Carbon Dioxide Level 25 mEQ/L (20-30) Anion Gap 17 (5-15) H Blood Urea Nitrogen 19 mg/dL (7-23) Creatinine 1.7 mg/dL (0.7-1.2) H Estimat Glomerular Filtration Rate mL/min (>60) Glucose Level 114 mg/dL (74-106) H Lactic Acid Level 2.10 mmol/L (0.66-2.22) 1.80 mmol/L (0.66-2.22) Calcium Level 8.8 mg/dL (8.6-10.2) Total Bilirubin 0.5 mg/dL (0.0-1.2) Aspartate Amino Transf (AST/SGOT) 18 U/L (5-40) Alanine Aminotransferase (ALT/SGPT) 12 U/L (3-41) Alkaline Phosphatase 68 U/L (40-129) Total Creatine Kinase 307 U/L (38-174) H Creatine Kinase MB 1.6 ng/mL (< 6.7) Creatine Kinase MB Relative Index 0.5 Troponin I < 0.30 ng/mL (<=0.30) Pro-B-Type Natriuretic Peptide 1250 pg/mL (0-450) H Total Protein 6.9 g/dL (6.6-8.7) Albumin 3.1 g/dL (3.5-5.2) L Globulin 3.8 g/dL Albumin/Globulin Ratio 0.8 (1.0-2.7) L White Blood Count 5.8 K/UL (4.8-10.8) Red Blood Count 4.98 M/UL (4.70-6.10) Hemoglobin 14.0 G/DL (14.2-18.0) L Hematocrit 43.8 % (42.0-52.0) Mean Corpuscular Volume 88 FL (80-99) Mean Corpuscular Hemoglobin 28.1 PG (27.0-31.0) Mean Corpuscular Hemoglobin Concent 32.0 G/DL (32.0-36.0) Red Cell Distribution Width 13.0 % (11.6-14.8) Platelet Count 173 K/UL (150-450) Mean Platelet Volume 10.1 FL (6.5-10.1) Neutrophils (%) (Auto) 83.7 % (45.0-75.0) H Lymphocytes (%) (Auto) 5.6 % (20.0-45.0) L Monocytes (%) (Auto) 9.3 % (1.0-10.0) Eosinophils (%) (Auto) 0.0 % (0.0-3.0) Basophils (%) (Auto) 1.4 % (0.0-2.0) Urine Color Pale yellow Urine Appearance Clear Urine pH 6 (4.5-8.0) Urine Specific [employer] [place] 1.010 (1.005-1.035) Urine Protein 2+ (NEGATIVE) H Urine Glucose (UA) Negative (NEGATIVE) Urine Ketones Negative (NEGATIVE) Urine Occult Blood 5+ (NEGATIVE) H Urine Nitrite Negative (NEGATIVE) Urine Bilirubin Negative (NEGATIVE) Urine Urobilinogen Normal MG/DL (0.0-1.0) Urine Leukocyte Esterase Negative (NEGATIVE) Urine RBC 0-2 /HPF (0 - 0) H Urine WBC 0-2 /HPF (0 - 0) Urine Squamous Epithelial Cells None /LPF (NONE/OCC) Urine Bacteria Occasional /HPF (NONE) Test 05/16/16 03:30 White Blood Count 11.1 K/UL (4.8-10.8) #H Red Blood Count 4.61 M/UL (4.70-6.10) L Hemoglobin 13.1 G/DL (14.2-18.0) L Hematocrit 40.7 % (42.0-52.0) L Mean Corpuscular Volume 88 FL (80-99) Mean Corpuscular Hemoglobin 28.5 PG (27.0-31.0) Mean Corpuscular Hemoglobin Concent 32.2 G/DL (32.0-36.0) Red Cell Distribution Width 12.4 % (11.6-14.8) Platelet Count 155 K/UL (150-450) Mean Platelet Volume 9.3 FL (6.5-10.1) Neutrophils (%) (Auto) % (45.0-75.0) Lymphocytes (%) (Auto) % (20.0-45.0) Monocytes (%) (Auto) % (1.0-10.0) Eosinophils (%) (Auto) % (0.0-3.0) Basophils (%) (Auto) % (0.0-2.0) Differential Total Cells Counted 100 Neutrophils % (Manual) 83 % (45-75) H Lymphocytes % (Manual) 2 % (20-45) L Monocytes % (Manual) 3 % (1-10) Eosinophils % (Manual) 0 % (0-3) Basophils % (Manual) 0 % (0-2) Band Neutrophils 12 % (0-8) H Platelet Estimate Adequate Platelet Morphology Normal Red Blood Cell Morphology Normal Sodium Level 135 mEQ/L (135-145) Potassium Level 2.9 mEQ/L (3.4-4.9) L Chloride Level 91 mEQ/L (98-107) L Carbon Dioxide Level 23 mEQ/L (20-30) Anion Gap 21 (5-15) H Blood Urea Nitrogen 20 mg/dL (7-23) Creatinine 1.7 mg/dL (0.7-1.2) H Estimat Glomerular Filtration Rate mL/min (>60) Glucose Level 123 mg/dL (74-106) H Calcium Level 8.5 mg/dL (8.6-10.2) L Total Bilirubin 0.4 mg/dL (0.0-1.2) Direct Bilirubin 0.1 mg/dL (0.1-0.3) Aspartate Amino Transf (AST/SGOT) 26 U/L (5-40) Alanine Aminotransferase (ALT/SGPT) 13 U/L (3-41) Alkaline Phosphatase 62 U/L (40-129) Total Protein 6.7 g/dL (6.6-8.7) Albumin 2.9 g/dL (3.5-5.2) L Prostate Specific Antigen 11.8 ng/mL (< 4.5) H Thyroid Stimulating Hormone (TSH) 0.653 uIU/mL (0.300-4.500) Microbiology Date/Time Source Procedure Growth Status 05/15/16 17:20 Nasal Nares Influenza Types A,B Antigen ([place]) - Final Complete Height (Feet): 5 Height (Inches): 7.00 Weight (Pounds): 230 Medications Current Medications Medications (Trade) Dose Ordered Sig/Vini Route PRN Reason Start Time Stop Time Status Last Admin Dose Admin Acetaminophen (Tylenol) 650 mg Q6H PRN ORAL Mild Pain/Temp > 100.5 05/15/16 21:15 06/14/16 21:14 05/16/16 08:31 Albuterol/ Ipratropium (DuoNeb 0.5-3(2.5)mg/3ml) 3 ml Q4H PRN HHN Shortness of Breath 05/16/16 00:30 05/21/16 00:29 Albuterol/ Ipratropium (DuoNeb 0.5-3(2.5)mg/3ml) 3 ml Q6HRT HHN 05/16/16 01:00 05/21/16 00:59 05/16/16 07:22 Aspirin (ASA) 81 mg DAILY ORAL 05/16/16 09:00 06/15/16 08:59 05/16/16 08:31 Atorvastatin Calcium (Lipitor) 20 mg BEDTIME ORAL 05/16/16 21:00 06/15/16 20:59 Docusate Sodium (Colace) 100 mg TWICE A DAY ORAL 05/16/16 09:00 06/15/16 08:59 05/16/16 08:31 Guaifenesin/ Dextromethorphan (Robitussin DM Syrup) 10 ml Q4H PRN ORAL For Cough 05/16/16 00:45 06/15/16 00:44 Heparin Sodium (Porcine) (Heparin 5000 units/ml) 5,000 units EVERY 12 HOURS SUBQ 05/16/16 09:00 06/15/16 08:59 05/16/16 08:32 Ondansetron HCl (Zofran) 4 mg EVERY 8 HOURS PRN IVP Nausea & Vomiting 05/15/16 21:15 06/14/16 21:14 Oseltamivir Phosphate (Tamiflu) 75 mg TWICE A DAY ORAL 05/16/16 09:00 05/21/16 08:59 05/16/16 09:01 Polyethylene Glycol (Miralax) 17 gm DAILY PRN ORAL Constipation 05/15/16 21:15 06/14/16 21:14 Tracy Kuhn M.D. May 17, 2016 18:58
[2016-05-17 20:07] VITALS: BP 158/97
[2016-05-17] MEDS ORDERED: LORazepam Inj 2mg/ml 1ml IV ONE (22:00)
[2016-05-18 00:14] VITALS: BP 154/114
[2016-05-18 04:06] VITALS: BP 166/73
[2016-05-18] MEDS: Amiodarone 200mg tab ORAL SCH ×3 (06:00→21:47)
[2016-05-18] MEDS: Metoprolol 50mg tab ORAL SCH ×3 (06:06→21:47)
[2016-05-18] MEDS ORDERED: LORazepam Inj 2mg/ml 1ml IV SCH (07:30)
[2016-05-18 08:00] VITALS: BP 153/75
--- NOTE | 2016-05-18 08:05 | Cardiology Report ---
APPROVED REPORT EXAM: Two-dimensional and M-mode echocardiogram with Doppler and color Doppler. INDICATION Atrial Fibrillation M-Mode DIMENSIONS IVSd1.5 (0.7-1.1cm)Left Atrium (MM)3.4 (1.6-4.0cm) LVDd4.6 (3.5-5.6cm)Aortic Root2.8 (2.0-3.7cm) PWd0.7 (0.7-1.1cm)Aortic Cusp Exc.1.8 (1.5-2.0cm) LVDs2.9 (2.5-4.0cm) PWs0.9 cm Normal left ventricular chamber size, systolic function and wall motion. Left ventricular ejection fraction estimated to be 60-65 %. Moderate left ventricular hypertrophy. No evidence of pericardial fat or effusion. Mild left atrial enlargement by 2D. Right cardiac chamber sizes are within normal limits. Focal aortic valve sclerosis with adequate cusp excursion Thickened mitral valve leaflets with normal excursion. Mild Mitral annulus and aortic root calcification. Pulmonic valve not well visualized. Normal tricuspid valve structure. IVC not obtainable. A color flow and spectral Doppler study was performed and revealed: No aortic regurgitation. No mitral regurgitation. Left ventricular diastolic dysfunction is grade I, impaired LV relaxation. No tricuspid regurgitation.
[2016-05-18] MEDS: Heparin 5000 units/ml inj SUBQ SCH (08:13)
[2016-05-18] MEDS: Docusate 100mg cap ORAL SCH ×2 (08:14→13:41)
[2016-05-18] MEDS: Aspirin Baby 81mg ORAL SCH (08:14)
[2016-05-18] MEDS: Oseltamivir 75mg cap ORAL SCH ×2 (08:24→17:48)
--- NOTE | 2016-05-18 08:34 | Cardiology Report ---
APPROVED REPORT EKG Measurement Heart [id number] Multifocal atrial tachycardia Right bundle branch block Left anterior fascicular block Bifascicular block Left ventricular hypertrophy with repolarization abnormality Abnormal ECG
[2016-05-18 12:00] VITALS: BP 151/64
[2016-05-18 16:00] VITALS: BP 157/94
--- NOTE | 2016-05-18 19:09 | General Progress Note ---
Assessment/Plan Problem List: (1) Sepsis ICD Codes: A41.9 - Sepsis, unspecified organism SNOMED: 51820888 (2) Generalized weakness ICD Codes: R53.1 - Weakness SNOMED: 62233026 (3) Hypertension ICD Codes: I10 - Essential (primary) hypertension SNOMED: 32291508 (4) Fall ICD Codes: W19.XXXA - Unspecified fall, initial encounter SNOMED: 5156595, 023088759 (5) Elevated PSA ICD Codes: R97.20 - Elevated prostate specific antigen [PSA] SNOMED: 946939237, 292960598 (6) Influenza A ICD Codes: J10.1 - Influenza due to other identified influenza virus with other respiratory manifestations SNOMED: 157942670 (7) CVA (cerebral vascular accident) ICD Codes: I63.9 - Cerebral infarction, unspecified SNOMED: 469899617 (8) Atrial fibrillation with RVR ICD Codes: I48.91 - Unspecified atrial fibrillation SNOMED: 281598233156085 Assessment/Plan Status: progressing Assessment/Plan admit to [facility] c/s Cardiology cont metop, amio and prn dilt Tamiflu PT/OT urol c/s per pcp request; ntd cont asa/statin hold home bp meds Dispo: DC tomorrow Subjective Date patient seen: May 18, 2016 Time patient seen: 19:09 Allergies: Coded Allergies: No Known Allergies (Unverified , 05/15/16) Subjective no acute events o/n; breathing improved Objective Last 24 Hour Vital Signs Date Time Temp Pulse Resp B/P Pulse Ox O2 Delivery O2 Flow Rate FiO2 05/18/16 16:00 84 05/18/16 16:00 97.7 77 21 157/94 98 Nasal Cannula 3.0 05/18/16 13:42 110 151/64 05/18/16 12:00 110 05/18/16 12:00 98.1 118 20 151/64 97 Nasal Cannula 2.0 05/18/16 08:00 98.4 110 21 153/75 95 Nasal Cannula 2.0 05/18/16 08:00 104 05/18/16 06:06 136 166/73 05/18/16 04:06 98.4 49 20 166/73 95 Nasal Cannula 2.0 05/18/16 04:00 103 05/18/16 00:14 98.1 50 21 154/114 96 Nasal Cannula 2.0 05/18/16 00:00 106 05/17/16 21:37 109 158/97 05/17/16 20:20 86 18 96 Nasal Cannula 2.0 28 05/17/16 20:17 84 48 95 Nasal Cannula 2.0 05/17/16 20:15 Nasal Cannula 2.0 28 05/17/16 20:14 96 Nasal Cannula 2.0 28 05/17/16 20:07 97.0 57 33 158/97 97 Nasal Cannula 2.0 05/17/16 20:00 87 Intake and Output 05/17/16 05/18/16 19:00 07:00 Intake Total 550 ml 910 ml Output Total 300 ml 1050 ml Balance 250 ml -140 ml Intake Oral 550 ml 910 ml Output Urine Total 300 ml 1050 ml # Voids 2 1 Height (Feet): 5 Height (Inches): 7.00 Weight (Pounds): 230 Objective Physical Exam Physical Exam General Appearance: no apparent distress, alert; more awake today HEENT: normocephalic, atraumatic, anicteric, mucous membranes moist, PERRL, EOMI, pharynx normal, no JVD Neck: non-tender, supple Respiratory/Chest: lungs clear, normal breath sounds, no respiratory distress, no accessory muscle use Cardiovascular/Chest: normal peripheral pulses, normal rate, regular rhythm Abdomen: normal bowel sounds, non tender, soft, no mass Extremities: non-tender, normal inspection Skin Exam: warm/dry Neurologic: skip miner II-XII grossly normal, no motor/sensory deficits, alert Musculoskeletal: normal muscle bulk Last 24 Hour Vital Signs Date Time Temp Pulse Resp B/P Pulse Ox O2 Delivery O2 Flow Rate FiO2 05/16/16 10:15 98.2 05/16/16 08:00 102.2 109 22 142/71 94 Nasal Cannula 2.0 05/16/16 07:26 Nasal Cannula 2.0 05/16/16 07:26 96 20 98 Nasal Cannula 2.0 05/16/16 07:25 99 22 93 Nasal Cannula 05/16/16 04:31 103 05/16/16 04:00 98.1 112 20 135/83 92 Room Air 05/16/16 01:26 89 18 95 Nasal Cannula 2.0 05/16/16 01:22 Nasal Cannula 2.0 05/16/16 01:22 93 Nasal Cannula 2.0 05/16/16 01:19 87 18 Room Air 05/16/16 01:18 87 18 91 Room Air 05/16/16 00:07 111 05/16/16 00:00 97.3 94 22 144/85 92 Room Air 05/15/16 20:56 98 05/15/16 20:00 102.0 122 18 142/80 92 Room Air 05/15/16 19:34 98.2 95 22 142/73 96 Room Air 05/15/16 18:59 98.2 95 22 142/73 96 Room Air 05/15/16 18:09 156/69 05/15/16 17:54 98.2 99 25 156/69 96 Room Air 05/15/16 16:15 98.2 91 28 159/77 96 Room Air 05/15/16 14:59 98.2 16 137/88 98 05/15/16 14:37 98.2 80 16 137/88 98 Intake and Output 05/15/16 05/16/16 19:00 07:00 Intake Total 100 ml 100 ml Output Total 5 ml Balance 100 ml 95 ml Intake Oral 100 ml IV Total 100 ml Output Urine Total 5 ml # Voids 1 Laboratory Tests Test 05/15/16 15:50 05/15/16 16:40 05/15/16 17:17 05/15/16 18:10 Sodium Level 136 mEQ/L (135-145) Potassium Level 3.4 mEQ/L (3.4-4.9) Chloride Level 94 mEQ/L (98-107) L Carbon Dioxide Level 25 mEQ/L (20-30) Anion Gap 17 (5-15) H Blood Urea Nitrogen 19 mg/dL (7-23) Creatinine 1.7 mg/dL (0.7-1.2) H Estimat Glomerular Filtration Rate mL/min (>60) Glucose Level 114 mg/dL (74-106) H Lactic Acid Level 2.10 mmol/L (0.66-2.22) 1.80 mmol/L (0.66-2.22) Calcium Level 8.8 mg/dL (8.6-10.2) Total Bilirubin 0.5 mg/dL (0.0-1.2) Aspartate Amino Transf (AST/SGOT) 18 U/L (5-40) Alanine Aminotransferase (ALT/SGPT) 12 U/L (3-41) Alkaline Phosphatase 68 U/L (40-129) Total Creatine Kinase 307 U/L (38-174) H Creatine Kinase MB 1.6 ng/mL (< 6.7) Creatine Kinase MB Relative Index 0.5 Troponin I < 0.30 ng/mL (<=0.30) Pro-B-Type Natriuretic Peptide 1250 pg/mL (0-450) H Total Protein 6.9 g/dL (6.6-8.7) Albumin 3.1 g/dL (3.5-5.2) L Globulin 3.8 g/dL Albumin/Globulin Ratio 0.8 (1.0-2.7) L White Blood Count 5.8 K/UL (4.8-10.8) Red Blood Count 4.98 M/UL (4.70-6.10) Hemoglobin 14.0 G/DL (14.2-18.0) L Hematocrit 43.8 % (42.0-52.0) Mean Corpuscular Volume 88 FL (80-99) Mean Corpuscular Hemoglobin 28.1 PG (27.0-31.0) Mean Corpuscular Hemoglobin Concent 32.0 G/DL (32.0-36.0) Red Cell Distribution Width 13.0 % (11.6-14.8) Platelet Count 173 K/UL (150-450) Mean Platelet Volume 10.1 FL (6.5-10.1) Neutrophils (%) (Auto) 83.7 % (45.0-75.0) H Lymphocytes (%) (Auto) 5.6 % (20.0-45.0) L Monocytes (%) (Auto) 9.3 % (1.0-10.0) Eosinophils (%) (Auto) 0.0 % (0.0-3.0) Basophils (%) (Auto) 1.4 % (0.0-2.0) Urine Color Pale yellow Urine Appearance Clear Urine pH 6 (4.5-8.0) Urine Specific [place] 1.010 (1.005-1.035) Urine Protein 2+ (NEGATIVE) H Urine Glucose (UA) Negative (NEGATIVE) Urine Ketones Negative (NEGATIVE) Urine Occult Blood 5+ (NEGATIVE) H Urine Nitrite Negative (NEGATIVE) Urine Bilirubin Negative (NEGATIVE) Urine Urobilinogen Normal MG/DL (0.0-1.0) Urine Leukocyte Esterase Negative (NEGATIVE) Urine RBC 0-2 /HPF (0 - 0) H Urine WBC 0-2 /HPF (0 - 0) Urine Squamous Epithelial Cells None /LPF (NONE/OCC) Urine Bacteria Occasional /HPF (NONE) Test 05/16/16 03:30 White Blood Count 11.1 K/UL (4.8-10.8) #H Red Blood Count 4.61 M/UL (4.70-6.10) L Hemoglobin 13.1 G/DL (14.2-18.0) L Hematocrit 40.7 % (42.0-52.0) L Mean Corpuscular Volume 88 FL (80-99) Mean Corpuscular Hemoglobin 28.5 PG (27.0-31.0) Mean Corpuscular Hemoglobin Concent 32.2 G/DL (32.0-36.0) Red Cell Distribution Width 12.4 % (11.6-14.8) Platelet Count 155 K/UL (150-450) Mean Platelet Volume 9.3 FL (6.5-10.1) Neutrophils (%) (Auto) % (45.0-75.0) Lymphocytes (%) (Auto) % (20.0-45.0) Monocytes (%) (Auto) % (1.0-10.0) Eosinophils (%) (Auto) % (0.0-3.0) Basophils (%) (Auto) % (0.0-2.0) Differential Total Cells Counted 100 Neutrophils % (Manual) 83 % (45-75) H Lymphocytes % (Manual) 2 % (20-45) L Monocytes % (Manual) 3 % (1-10) Eosinophils % (Manual) 0 % (0-3) Basophils % (Manual) 0 % (0-2) Band Neutrophils 12 % (0-8) H Platelet Estimate Adequate Platelet Morphology Normal Red Blood Cell Morphology Normal Sodium Level 135 mEQ/L (135-145) Potassium Level 2.9 mEQ/L (3.4-4.9) L Chloride Level 91 mEQ/L (98-107) L Carbon Dioxide Level 23 mEQ/L (20-30) Anion Gap 21 (5-15) H Blood Urea Nitrogen 20 mg/dL (7-23) Creatinine 1.7 mg/dL (0.7-1.2) H Estimat Glomerular Filtration Rate mL/min (>60) Glucose Level 123 mg/dL (74-106) H Calcium Level 8.5 mg/dL (8.6-10.2) L Total Bilirubin 0.4 mg/dL (0.0-1.2) Direct Bilirubin 0.1 mg/dL (0.1-0.3) Aspartate Amino Transf (AST/SGOT) 26 U/L (5-40) Alanine Aminotransferase (ALT/SGPT) 13 U/L (3-41) Alkaline Phosphatase 62 U/L (40-129) Total Protein 6.7 g/dL (6.6-8.7) Albumin 2.9 g/dL (3.5-5.2) L Prostate Specific Antigen 11.8 ng/mL (< 4.5) H Thyroid Stimulating Hormone (TSH) 0.653 uIU/mL (0.300-4.500) Microbiology Date/Time Source Procedure Growth Status 05/15/16 17:20 Nasal Nares Influenza Types A,B Antigen ([place]) - Final Complete Height (Feet): 5 Height (Inches): 7.00 Weight (Pounds): 230 Medications Current Medications Medications (Trade) Dose Ordered Sig/Vini Route PRN Reason Start Time Stop Time Status Last Admin Dose Admin Acetaminophen (Tylenol) 650 mg Q6H PRN ORAL Mild Pain/Temp > 100.5 05/15/16 21:15 06/14/16 21:14 05/16/16 08:31 Albuterol/ Ipratropium (DuoNeb 0.5-3(2.5)mg/3ml) 3 ml Q4H PRN HHN Shortness of Breath 05/16/16 00:30 05/21/16 00:29 Albuterol/ Ipratropium (DuoNeb 0.5-3(2.5)mg/3ml) 3 ml Q6HRT HHN 05/16/16 01:00 05/21/16 00:59 05/16/16 07:22 Aspirin (ASA) 81 mg DAILY ORAL 05/16/16 09:00 06/15/16 08:59 05/16/16 08:31 Atorvastatin Calcium (Lipitor) 20 mg BEDTIME ORAL 05/16/16 21:00 06/15/16 20:59 Docusate Sodium (Colace) 100 mg TWICE A DAY ORAL 05/16/16 09:00 06/15/16 08:59 05/16/16 08:31 Guaifenesin/ Dextromethorphan (Robitussin DM Syrup) 10 ml Q4H PRN ORAL For Cough 05/16/16 00:45 06/15/16 00:44 Heparin Sodium (Porcine) (Heparin 5000 units/ml) 5,000 units EVERY 12 HOURS SUBQ 05/16/16 09:00 06/15/16 08:59 05/16/16 08:32 Ondansetron HCl (Zofran) 4 mg EVERY 8 HOURS PRN IVP Nausea & Vomiting 05/15/16 21:15 06/14/16 21:14 Oseltamivir Phosphate (Tamiflu) 75 mg TWICE A DAY ORAL 05/16/16 09:00 05/21/16 08:59 05/16/16 09:01 Polyethylene Glycol (Miralax) 17 gm DAILY PRN ORAL Constipation 05/15/16 21:15 06/14/16 21:14 Tracy Kuhn M.D. May 18, 2016 19:09
[2016-05-18 20:00] VITALS: BP 152/98
--- NOTE | 2016-05-18 21:17 | Progress Note ---
DATE: 05/18/2016 CARDIOLOGY PROGRESS NOTE SUBJECTIVE: No complaints. OBJECTIVE: VITAL SIGNS: Stable. LUNGS: Clear. CARDIAC: Regularly irregular. On telemetry, he is in sinus with frequent and consecutive premature atrial contractions. LUNGS: Clear to auscultation. ABDOMEN: Soft and nontender. EXTREMITIES: There is no cyanosis, clubbing, or edema. IMPRESSION: 1. Paroxysmal atrial fibrillation. 2. Hyperlipidemia. 3. Chronic renal insufficiency. DISCUSSION: His MRI is negative. We will start him on anticoagulation without liquids. We will continue the amiodarone and beta-blockade. Once he is cleared from a pulmonary standpoint, he can be discharged on 200 mg amiodarone a day, Toprol-XL, and Eliquis 2.5 mg twice a day. Leandro Ramirez M.D. DR: DARY JOB#: [id number] CC:
[2016-05-18] MEDS: Eliquis 2.5mg tablet ORAL SCH (21:46)
--- NOTE | 2016-05-18 21:47 | Consultation ---
DATE OF CONSULTATION: 05/17/2016 CARDIOLOGY CONSULTATION REASON FOR CONSULTATION: Atrial fibrillation. HISTORY OF PRESENT ILLNESS: The patient is a 75-year-old man with history of hypertension. He has been told that he has an irregular heartbeat in the past, but does not know the diagnosis of atrial fibrillation. He has hyperlipidemia. He presents after having had difficulty ambulation, altered mental status, and a fall with generalized weakness. The patient was evaluated in the emergency room and admitted for concern over his stroke. He was found to have an irregular heartbeat. The patient denies any chest pain, shortness of breath, or dyspnea on exertion. He denies any orthopnea, or PND. He has been having a cough for the past two days as well. PAST MEDICAL HISTORY: As mentioned above. ALLERGIES: None. MEDICATIONS: I have reviewed the medication reconciliation form and medication administration record. SOCIAL HISTORY: He lives with his . Does not smoke or drink alcohol. 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 FAMILY HISTORY: Noncontributory. REVIEW OF SYSTEMS: Comprehensive 12-point review of systems was otherwise negative. PHYSICAL EXAMINATION: VITAL SIGNS: Currently stable. GENERAL: He is in no apparent distress. Alert, awake, and oriented x3. HEENT: Normocephalic and atraumatic. NECK: Supple. LUNGS: Clear to auscultation. CARDIAC: Irregularly irregular. ABDOMEN: Soft and nontender. EXTREMITIES: There is no cyanosis, clubbing, or edema. IMPRESSION AND RECOMMENDATION: 1. Paroxysmal atrial fibrillation. 2. Possible stroke. 3. Pneumonia versus viral pneumonitis. 4. Hyperlipidemia. DISCUSSION: I think it is important to rule out an acute stroke. If he has no stroke then I would recommend anticoagulation. I will start him on amiodarone for rate and rhythm controlled at this point and start him on anticoagulation if his MRI of the brain is negative. Thank you, Dr. Kuhn for allowing me to participate in the care of your patient. Please feel free to contact me with any questions or concerns. Leandro Ramirez M.D. DR: LAKEISHA JOB#: [id number] CC:
[2016-05-19] VITALS (7 sets, daily range): BP systolic 144–177; BP diastolic 79–119
[2016-05-19] MEDS: Levalbuterol Inh UD 1.25mg/0.5ml HHN SCH ×4 (01:10→19:56)
[2016-05-19 05:40] LABS: EOSINOPHILS % (AUTO) 0.1 % (0.0-3.0); MEAN CORPUSCULAR HEMOGLOBIN 29.4 PG (27.0-31.0); MEAN CORPUSCULAR HGB CONC 32.8 G/DL (32.0-36.0); MEAN CORPUSCULAR VOLUME 90 FL (80-99); MEAN PLATELET VOLUME 8.2 FL (6.5-10.1); MONOCYTES % (AUTO) 9.2 % (1.0-10.0); NEUTROPHILS % (AUTO) 80.8 % (45.0-75.0); PLATELET COUNT 176 K/UL (150-450); RED BLOOD COUNT 5.15 M/UL (4.70-6.10); RED CELL DISTRIBUTION WIDTH 12.4 % (11.6-14.8); WHITE BLOOD COUNT 7.3 K/UL (4.8-10.8)
[2016-05-19 05:50] LABS: ANION GAP 14 (5-15); CALCIUM 9.1 mg/dL (8.6-10.2); CARBON DIOXIDE 27 mEQ/L (20-30); CHLORIDE 96 mEQ/L (98-107); CREATININE 1.4 mg/dL (0.7-1.2); HEMOLYSIS 16; POTASSIUM 3.6 mEQ/L (3.4-4.9); SODIUM 137 mEQ/L (135-145)
[2016-05-19] MEDS: Amiodarone 200mg tab ORAL SCH ×3 (06:42→22:16)
[2016-05-19] MEDS: Metoprolol 50mg tab ORAL SCH ×3 (06:43→22:16)
[2016-05-19] MEDS: Eliquis 2.5mg tablet ORAL SCH ×2 (08:54→20:45)
[2016-05-19] MEDS: Docusate 100mg cap ORAL SCH ×2 (08:54→17:34)
[2016-05-19] MEDS: Oseltamivir 75mg cap ORAL SCH ×2 (08:57→17:34)
[2016-05-19] MEDS ORDERED: LORazepam Inj 2mg/ml 1ml IV ONE (12:00)
--- NOTE | 2016-05-19 18:36 | Cardiac Electrophysiology PN ---
Assessment/Plan Status: stable, progressing Status Narrative Pt remains in AF. Rates controlled w/ metoprolol Duration of AF uncertain. Assessment/Plan Continue Eliquis for cva prevention and b blockers and amiodarone for rate control. can be dc d when stable from pulm standpoint, w outpt followup w Dr Ramirez Subjective ROS Limited/Unobtainable: No Subjective Pt c/o cough, no chest pain or palpitations Objective Last 24 Hour Vital Signs Date Time Temp Pulse Resp B/P Pulse Ox O2 Delivery O2 Flow Rate FiO2 05/19/16 16:06 97.2 72 15 164/79 98 Nasal Cannula 2.5 05/19/16 16:00 72 05/19/16 14:12 73 17 98 Room Air 21 05/19/16 14:01 71 18 98 Room Air 21 05/19/16 14:01 21 05/19/16 13:22 93 147/100 05/19/16 12:00 97.7 96 20 148/113 97 Nasal Cannula 2.0 05/19/16 12:00 99 05/19/16 08:20 97 Nasal Cannula 2.0 28 05/19/16 08:20 Nasal Cannula 2.0 28 05/19/16 08:20 Nasal Cannula 2.0 28 05/19/16 08:20 99 18 97 Nasal Cannula 2.0 28 05/19/16 08:00 98.2 107 21 146/97 97 Nasal Cannula 2.0 05/19/16 08:00 98 05/19/16 06:43 95 140/100 05/19/16 04:00 89 05/19/16 04:00 97.9 83 18 144/110 95 05/19/16 01:29 64 18 96 Nasal Cannula 2.0 28 05/19/16 01:05 63 18 92 Nasal Cannula 2.0 05/19/16 00:00 97.7 65 16 177/112 98 Nasal Cannula 2.0 05/19/16 00:00 85 05/18/16 21:47 101 152/98 05/18/16 20:00 97.3 74 22 152/98 99 Nasal Cannula 3.0 05/18/16 20:00 101 05/18/16 19:00 Nasal Cannula 2.0 28 05/18/16 19:00 95 Nasal Cannula 2.0 28 General Appearance: WD/WN, no apparent distress, alert EENT: PERRL/EOMI Neck: supple, no JVD Rhythm: Afib Cardiovascular: normal rate, no gallop/murmur, irregularly irregular Respiratory/Chest: other - occ rhonchi Abdomen: non tender, soft Intake and Output 05/18/16 05/19/16 19:00 07:00 Intake Total 220 ml 900 ml Output Total 400 ml Balance 220 ml 500 ml Intake Oral 220 ml 900 ml Output Urine Total 400 ml # Voids 2 Laboratory Tests Test 05/19/16 04:00 White Blood Count 7.3 K/UL (4.8-10.8) Red Blood Count 5.15 M/UL (4.70-6.10) Hemoglobin 15.2 G/DL (14.2-18.0) Hematocrit 46.2 % (42.0-52.0) Mean Corpuscular Volume 90 FL (80-99) Mean Corpuscular Hemoglobin 29.4 PG (27.0-31.0) Mean Corpuscular Hemoglobin Concent 32.8 G/DL (32.0-36.0) Red Cell Distribution Width 12.4 % (11.6-14.8) Platelet Count 176 K/UL (150-450) Mean Platelet Volume 8.2 FL (6.5-10.1) Neutrophils (%) (Auto) 80.8 % (45.0-75.0) H Lymphocytes (%) (Auto) 9.0 % (20.0-45.0) L Monocytes (%) (Auto) 9.2 % (1.0-10.0) Eosinophils (%) (Auto) 0.1 % (0.0-3.0) Basophils (%) (Auto) 1.0 % (0.0-2.0) Sodium Level 137 mEQ/L (135-145) Potassium Level 3.6 mEQ/L (3.4-4.9) Chloride Level 96 mEQ/L (98-107) L Carbon Dioxide Level 27 mEQ/L (20-30) Anion Gap 14 (5-15) Blood Urea Nitrogen 31 mg/dL (7-23) H Creatinine 1.4 mg/dL (0.7-1.2) H Estimat Glomerular Filtration Rate mL/min (>60) Glucose Level 116 mg/dL (74-106) H Calcium Level 9.1 mg/dL (8.6-10.2) ARCADIO ARZATE May 19, 2016 18:36
--- NOTE | 2016-05-19 19:16 | General Progress Note ---
Assessment/Plan Problem List: (1) Sepsis ICD Codes: A41.9 - Sepsis, unspecified organism SNOMED: 85492468 (2) Generalized weakness ICD Codes: R53.1 - Weakness SNOMED: 59801855 (3) Hypertension ICD Codes: I10 - Essential (primary) hypertension SNOMED: 25457012 (4) Fall ICD Codes: W19.XXXA - Unspecified fall, initial encounter SNOMED: 2459258, 511321427 (5) Elevated PSA ICD Codes: R97.20 - Elevated prostate specific antigen [PSA] SNOMED: 856276743, 119136517 (6) Influenza A ICD Codes: J10.1 - Influenza due to other identified influenza virus with other respiratory manifestations SNOMED: 549623565 (7) CVA (cerebral vascular accident) ICD Codes: I63.9 - Cerebral infarction, unspecified SNOMED: 730615760 (8) Atrial fibrillation with RVR ICD Codes: I48.91 - Unspecified atrial fibrillation SNOMED: 978818451066340 Assessment/Plan Status: progressing Assessment/Plan admit to [facility] Cardiology cont metop, amio and prn dilt Tamiflu PT/OT urol c/s per pcp request; ntd cont statin start eliquis hold home bp meds Dispo: DC tomorrow Subjective Date patient seen: May 19, 2016 Time patient seen: 19:15 Allergies: Coded Allergies: No Known Allergies (Unverified , 05/15/16) Subjective no acute events o/n; breathing improved; no cp/sob Objective Last 24 Hour Vital Signs Date Time Temp Pulse Resp B/P Pulse Ox O2 Delivery O2 Flow Rate FiO2 05/19/16 16:06 97.2 72 15 164/79 98 Nasal Cannula 2.5 05/19/16 16:00 72 05/19/16 14:12 73 17 98 Room Air 21 05/19/16 14:01 71 18 98 Room Air 21 05/19/16 14:01 21 05/19/16 13:22 93 147/100 05/19/16 12:00 97.7 96 20 148/113 97 Nasal Cannula 2.0 05/19/16 12:00 99 05/19/16 08:20 97 Nasal Cannula 2.0 28 05/19/16 08:20 Nasal Cannula 2.0 28 05/19/16 08:20 Nasal Cannula 2.0 28 05/19/16 08:20 99 18 97 Nasal Cannula 2.0 28 05/19/16 08:00 98.2 107 21 146/97 97 Nasal Cannula 2.0 05/19/16 08:00 98 05/19/16 06:43 95 140/100 05/19/16 04:00 89 05/19/16 04:00 97.9 83 18 144/110 95 05/19/16 01:29 64 18 96 Nasal Cannula 2.0 28 05/19/16 01:05 63 18 92 Nasal Cannula 2.0 05/19/16 00:00 97.7 65 16 177/112 98 Nasal Cannula 2.0 05/19/16 00:00 85 05/18/16 21:47 101 152/98 05/18/16 20:00 97.3 74 22 152/98 99 Nasal Cannula 3.0 05/18/16 20:00 101 Intake and Output 05/18/16 05/19/16 19:00 07:00 Intake Total 220 ml 900 ml Output Total 400 ml Balance 220 ml 500 ml Intake Oral 220 ml 900 ml Output Urine Total 400 ml # Voids 2 Laboratory Tests 05/19/16 04:00: White Blood Count 7.3, Red Blood Count 5.15, Hemoglobin 15.2, Hematocrit 46.2, Mean Corpuscular Volume 90, Mean Corpuscular Hemoglobin 29.4, Mean Corpuscular Hemoglobin Concent 32.8, Red Cell Distribution Width 12.4, Platelet Count 176, Mean Platelet Volume 8.2, Neutrophils (%) (Auto) 80.8H, Lymphocytes (%) (Auto) 9.0L, Monocytes (%) (Auto) 9.2, Eosinophils (%) (Auto) 0.1, Basophils (%) (Auto ) 1.0, Sodium Level 137, Potassium Level 3.6, Chloride Level 96L, Carbon Dioxide Level 27, Anion Gap 14, Blood Urea Nitrogen 31H, Creatinine 1.4H, Estimat Glomerular Filtration Rate , Glucose Level 116H, Calcium Level 9.1 Height (Feet): 5 Height (Inches): 7.00 Weight (Pounds): 230 Objective Physical Exam Physical Exam General Appearance: no apparent distress, alert; very talkative HEENT: normocephalic, atraumatic, anicteric, mucous membranes moist, PERRL, EOMI, pharynx normal, no JVD Neck: non-tender, supple Respiratory/Chest: lungs clear, normal breath sounds, no respiratory distress, no accessory muscle use; minimal wheezing Cardiovascular/Chest: normal peripheral pulses, normal rate, regular rhythm Abdomen: normal bowel sounds, non tender, soft, no mass Extremities: non-tender, normal inspection Skin Exam: warm/dry 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, no motor/sensory deficits, alert Musculoskeletal: normal muscle bulk Last 24 Hour Vital Signs Date Time Temp Pulse Resp B/P Pulse Ox O2 Delivery O2 Flow Rate FiO2 05/16/16 10:15 98.2 05/16/16 08:00 102.2 109 22 142/71 94 Nasal Cannula 2.0 05/16/16 07:26 Nasal Cannula 2.0 05/16/16 07:26 96 20 98 Nasal Cannula 2.0 05/16/16 07:25 99 22 93 Nasal Cannula 05/16/16 04:31 103 05/16/16 04:00 98.1 112 20 135/83 92 Room Air 05/16/16 01:26 89 18 95 Nasal Cannula 2.0 05/16/16 01:22 Nasal Cannula 2.0 05/16/16 01:22 93 Nasal Cannula 2.0 05/16/16 01:19 87 18 Room Air 05/16/16 01:18 87 18 91 Room Air 05/16/16 00:07 111 05/16/16 00:00 97.3 94 22 144/85 92 Room Air 05/15/16 20:56 98 05/15/16 20:00 102.0 122 18 142/80 92 Room Air 05/15/16 19:34 98.2 95 22 142/73 96 Room Air 05/15/16 18:59 98.2 95 22 142/73 96 Room Air 05/15/16 18:09 156/69 05/15/16 17:54 98.2 99 25 156/69 96 Room Air 05/15/16 16:15 98.2 91 28 159/77 96 Room Air 05/15/16 14:59 98.2 16 137/88 98 05/15/16 14:37 98.2 80 16 137/88 98 Intake and Output 05/15/16 05/16/16 19:00 07:00 Intake Total 100 ml 100 ml Output Total 5 ml Balance 100 ml 95 ml Intake Oral 100 ml IV Total 100 ml Output Urine Total 5 ml # Voids 1 Laboratory Tests Test 05/15/16 15:50 05/15/16 16:40 05/15/16 17:17 05/15/16 18:10 Sodium Level 136 mEQ/L (135-145) Potassium Level 3.4 mEQ/L (3.4-4.9) Chloride Level 94 mEQ/L (98-107) L Carbon Dioxide Level 25 mEQ/L (20-30) Anion Gap 17 (5-15) H Blood Urea Nitrogen 19 mg/dL (7-23) Creatinine 1.7 mg/dL (0.7-1.2) H Estimat Glomerular Filtration Rate mL/min (>60) Glucose Level 114 mg/dL (74-106) H Lactic Acid Level 2.10 mmol/L (0.66-2.22) 1.80 mmol/L (0.66-2.22) Calcium Level 8.8 mg/dL (8.6-10.2) Total Bilirubin 0.5 mg/dL (0.0-1.2) Aspartate Amino Transf (AST/SGOT) 18 U/L (5-40) Alanine Aminotransferase (ALT/SGPT) 12 U/L (3-41) Alkaline Phosphatase 68 U/L (40-129) Total Creatine Kinase 307 U/L (38-174) H Creatine Kinase MB 1.6 ng/mL (< 6.7) Creatine Kinase MB Relative Index 0.5 Troponin I < 0.30 ng/mL (<=0.30) Pro-B-Type Natriuretic Peptide 1250 pg/mL (0-450) H Total Protein 6.9 g/dL (6.6-8.7) Albumin 3.1 g/dL (3.5-5.2) L Globulin 3.8 g/dL Albumin/Globulin Ratio 0.8 (1.0-2.7) L White Blood Count 5.8 K/UL (4.8-10.8) Red Blood Count 4.98 M/UL (4.70-6.10) Hemoglobin 14.0 G/DL (14.2-18.0) L Hematocrit 43.8 % (42.0-52.0) Mean Corpuscular Volume 88 FL (80-99) Mean Corpuscular Hemoglobin 28.1 PG (27.0-31.0) Mean Corpuscular Hemoglobin Concent 32.0 G/DL (32.0-36.0) Red Cell Distribution Width 13.0 % (11.6-14.8) Platelet Count 173 K/UL (150-450) Mean Platelet Volume 10.1 FL (6.5-10.1) Neutrophils (%) (Auto) 83.7 % (45.0-75.0) H Lymphocytes (%) (Auto) 5.6 % (20.0-45.0) L Monocytes (%) (Auto) 9.3 % (1.0-10.0) Eosinophils (%) (Auto) 0.0 % (0.0-3.0) Basophils (%) (Auto) 1.4 % (0.0-2.0) Urine Color Pale yellow Urine Appearance Clear Urine pH 6 (4.5-8.0) Urine Specific Phillips 1.010 (1.005-1.035) Urine Protein 2+ (NEGATIVE) H Urine Glucose (UA) Negative (NEGATIVE) Urine Ketones Negative (NEGATIVE) Urine Occult Blood 5+ (NEGATIVE) H Urine Nitrite Negative (NEGATIVE) Urine Bilirubin Negative (NEGATIVE) Urine Urobilinogen Normal MG/DL (0.0-1.0) Urine Leukocyte Esterase Negative (NEGATIVE) Urine RBC 0-2 /HPF (0 - 0) H Urine WBC 0-2 /HPF (0 - 0) Urine Squamous Epithelial Cells None /LPF (NONE/OCC) Urine Bacteria Occasional /HPF (NONE) Test 05/16/16 03:30 White Blood Count 11.1 K/UL (4.8-10.8) #H Red Blood Count 4.61 M/UL (4.70-6.10) L Hemoglobin 13.1 G/DL (14.2-18.0) L Hematocrit 40.7 % (42.0-52.0) L Mean Corpuscular Volume 88 FL (80-99) Mean Corpuscular Hemoglobin 28.5 PG (27.0-31.0) Mean Corpuscular Hemoglobin Concent 32.2 G/DL (32.0-36.0) Red Cell Distribution Width 12.4 % (11.6-14.8) Platelet Count 155 K/UL (150-450) Mean Platelet Volume 9.3 FL (6.5-10.1) Neutrophils (%) (Auto) % (45.0-75.0) Lymphocytes (%) (Auto) % (20.0-45.0) Monocytes (%) (Auto) % (1.0-10.0) Eosinophils (%) (Auto) % (0.0-3.0) Basophils (%) (Auto) % (0.0-2.0) Differential Total Cells Counted 100 Neutrophils % (Manual) 83 % (45-75) H Lymphocytes % (Manual) 2 % (20-45) L Monocytes % (Manual) 3 % (1-10) Eosinophils % (Manual) 0 % (0-3) Basophils % (Manual) 0 % (0-2) Band Neutrophils 12 % (0-8) H Platelet Estimate Adequate Platelet Morphology Normal Red Blood Cell Morphology Normal Sodium Level 135 mEQ/L (135-145) Potassium Level 2.9 mEQ/L (3.4-4.9) L Chloride Level 91 mEQ/L (98-107) L Carbon Dioxide Level 23 mEQ/L (20-30) Anion Gap 21 (5-15) H Blood Urea Nitrogen 20 mg/dL (7-23) Creatinine 1.7 mg/dL (0.7-1.2) H Estimat Glomerular Filtration Rate mL/min (>60) Glucose Level 123 mg/dL (74-106) H Calcium Level 8.5 mg/dL (8.6-10.2) L Total Bilirubin 0.4 mg/dL (0.0-1.2) Direct Bilirubin 0.1 mg/dL (0.1-0.3) Aspartate Amino Transf (AST/SGOT) 26 U/L (5-40) Alanine Aminotransferase (ALT/SGPT) 13 U/L (3-41) Alkaline Phosphatase 62 U/L (40-129) Total Protein 6.7 g/dL (6.6-8.7) Albumin 2.9 g/dL (3.5-5.2) L Prostate Specific Antigen 11.8 ng/mL (< 4.5) H Thyroid Stimulating Hormone (TSH) 0.653 uIU/mL (0.300-4.500) Microbiology Date/Time Source Procedure Growth Status 05/15/16 17:20 Nasal Nares Influenza Types A,B Antigen ([place]) - Final Complete Height (Feet): 5 Height (Inches): 7.00 Weight (Pounds): 230 Medications Current Medications Medications (Trade) Dose Ordered Sig/Vini Route PRN Reason Start Time Stop Time Status Last Admin Dose Admin Acetaminophen (Tylenol) 650 mg Q6H PRN ORAL Mild Pain/Temp > 100.5 05/15/16 21:15 06/14/16 21:14 05/16/16 08:31 Albuterol/ Ipratropium (DuoNeb 0.5-3(2.5)mg/3ml) 3 ml Q4H PRN HHN Shortness of Breath 05/16/16 00:30 05/21/16 00:29 Albuterol/ Ipratropium (DuoNeb 0.5-3(2.5)mg/3ml) 3 ml Q6HRT HHN 05/16/16 01:00 05/21/16 00:59 05/16/16 07:22 Aspirin (ASA) 81 mg DAILY ORAL 05/16/16 09:00 06/15/16 08:59 05/16/16 08:31 Atorvastatin Calcium (Lipitor) 20 mg BEDTIME ORAL 05/16/16 21:00 06/15/16 20:59 Docusate Sodium (Colace) 100 mg TWICE A DAY ORAL 05/16/16 09:00 06/15/16 08:59 05/16/16 08:31 Guaifenesin/ Dextromethorphan (Robitussin DM Syrup) 10 ml Q4H PRN ORAL For Cough 05/16/16 00:45 06/15/16 00:44 Heparin Sodium (Porcine) (Heparin 5000 units/ml) 5,000 units EVERY 12 HOURS SUBQ 05/16/16 09:00 06/15/16 08:59 05/16/16 08:32 Ondansetron HCl (Zofran) 4 mg EVERY 8 HOURS PRN IVP Nausea & Vomiting 05/15/16 21:15 06/14/16 21:14 Oseltamivir Phosphate (Tamiflu) 75 mg TWICE A DAY ORAL 05/16/16 09:00 05/21/16 08:59 05/16/16 09:01 Polyethylene Glycol (Miralax) 17 gm DAILY PRN ORAL Constipation 05/15/16 21:15 06/14/16 21:14 Tracy Kuhn M.D. May 19, 2016 19:16
[2016-05-19] MEDS ORDERED: ELIQUIS2.5 MG ORAL (19:29)
--- NOTE | 2016-05-19 19:30 | Discharge Instructions ---
Discharge Instructions For Congestive Heart Failure Reminder Report to your physician any weight gain of 5 pounds or more in one week. Tracy Kuhn M.D. May 19, 2016 19:30
[2016-05-20] MEDS: Levalbuterol Inh UD 1.25mg/0.5ml HHN SCH ×2 (00:34→07:30)
[2016-05-20 04:34] VITALS: BP 152/78
[2016-05-20] MEDS: Metoprolol 50mg tab ORAL SCH (05:27)
[2016-05-20] MEDS: Amiodarone 200mg tab ORAL SCH (05:27)
[2016-05-20 08:00] VITALS: BP 149/75
[2016-05-20] MEDS: Eliquis 2.5mg tablet ORAL SCH (09:07)
[2016-05-20] MEDS: Docusate 100mg cap ORAL SCH (09:07)
--- NOTE | 2016-05-20 10:24 | Discharge Summary ---
Discharge Summary Hospital Course Date of Admission May 15, 2016 at 16:25 Date of Discharge 05/20/16 Admitting Diagnosis generalized weakness, new onset afib HPI Jaquan Humphreys is a 75 year old male who was admitted on May 15, 2016 at 16:25 for Generalized Weakness, New Onset A Fib Consultations [facility] Hospital Course admitted to [facility] Cardiology, [facility] cont metop, started amio and prn dilt--> pt became rate controlled Tamiflu PT/OT urol c/s per pcp request; ntd cont statin started eliquis Discharge Discharge Disposition Patient was discharged to Home (01) Discharge Diagnoses: (1) Atrial fibrillation with RVR (2) Sepsis (3) Generalized weakness (4) Hypertension (5) Fall (6) Elevated PSA (7) Influenza Tracy Allen M.D. May 20, 2016 10:24
[2016-05-20] MEDS ORDERED: Pneumococcal Vaccine 25mcg/0.5ml IM ONE (10:30)
[2016-05-20 12:00] VITALS: BP 153/75
[2016-05-20] MEDS ORDERED: NS 275ml ONE (13:53)
[2016-05-20] MEDS ORDERED: Tubing IV Secondary IV ONE (13:53)
--- NOTE | 2016-05-22 10:31 | Diagnostic Imaging Report ---
Indication:Elevated Bun and Creatinine. Technique: Grayscale and duplex Doppler imaging of the kidneys performed. Comparison: None Findings: The size, contour, and echogenicity of both kidneys are within normal limits. There is no hydronephrosis. The IVC and urinary bladder are unremarkable. Right kidney is 11.4 CM. Left kidney 12.2 CM. Prostate is enlarged measuring 7.2 x 5.6 x 7.4 CM. Impression: Prostate enlargement
--- NOTE | 2016-05-22 10:31 | Diagnostic Imaging Report ---
Indication: Chest Pain Comparison: 05/15/16 A single view chest radiograph was obtained. Findings: Left hemidiaphragm is elevated. Cardiomegaly is present. Bones are osteopenic. Impression: No significant change
--- NOTE | 2016-05-22 10:32 | Cardiology Report ---
APPROVED REPORT EKG Measurement Heart [id number] Sinus tachycardia Right bundle branch block Left anterior fascicular block Bifascicular block Left ventricular hypertrophy with repolarization abnormality Abnormal ECG
== END 2016-05-20 13:54 | disposition home health service (06) | DRG 872 ==
LOC: ENRESERV → ENRESERVTM → ENRESERVDT → EDBD 14:42 → EMR 15:26 → 2W 16:25 → EDBEDREQ 18:08 → 2W 05-17 22:07
DX: A41.9 Sepsis, unspecified organism (principal); I48.0 Paroxysmal atrial fibrillation; J10.1 Influenza due to other identified influenza virus with other respiratory manifestations; I10 Essential (primary) hypertension; I48.91 Unspecified atrial fibrillation; Z91.81 History of falling; R97.20 Elevated prostate specific antigen [PSA]; Z86.73 Personal history of transient ischemic attack (TIA), and cerebral infarction without residual deficits; R53.1 Weakness; E78.5 Hyperlipidemia, unspecified; Z23 Encounter for immunization
CPT/HCPCS: 36415; 70450; 70551; 71010; 76775; 80048; 80053; 80076; 81003; 82550; 82553; 83605; 83735; 83880; 84153; 84443; 84484; 85007; 85025; 86710; 87040; 87081; 90732; 93005; 93306; 94640; 94664; 94760; J7620; J8499

== ENCOUNTER 2016-12-17 07:30 | Emergency (ER) | payer MEDICARE ==
[~2016-12-17] VITALS: Ht 172.7 cm; Wt 96.2 kg
[~2016-12-17 07:30] MED LIST: ASPIRIN81 MG ORAL; ATORVASTATIN CA20 MG ORAL; CATAPRES-TTS 21 EACH TDERMAL; ELIQUIS2.5 MG ORAL; FUROSEMIDE20 M1 ORAL; METFORMIN HCL500 M1 ORAL; METOPROLOL TAR100 M1 ORAL; NORCO 5-325 TA1 EACH ORAL; POTASSIUM CHLO20 ME2 ORAL; SIMVASTATIN20 MG ORAL; XALATAN2.5 ML LEFT EYE
[2016-12-17] MEDS ORDERED: ZANTAC150 MG ORAL (07:53)
[2016-12-17] MEDS ORDERED: AMIODARONE HCL400 M1 ORAL (07:53)
[2016-12-17] MEDS ORDERED: LOSARTAN POTASS25 MG ORAL (07:53)
[2016-12-17] MEDS ORDERED: ELIQUIS5 MG PO (07:53)
[2016-12-17 07:58] VITALS: BP 216/87
--- NOTE | 2016-12-17 08:04 | Emergency Room Report ---
History of Present Illness General Chief Complaint: General Complaint Source: Patient Present Illness HPI 76YOM walk-in with foreign body sensation in throat Was taking losartan BP med this morning [place] that the tablet got stuck in throat Able to tolerate water without regurgitation Denies chest pain, SOB, abd pain, nausea/vomiting No history of throat/esphageal cancer, schatski rings to name a few Allergies: Coded Allergies: No Known Allergies (Unverified , 05/15/16) Patient History Past Medical History: HTN, CVA/TIA Past Surgical History: none Pertinent Family History: none Social History: Denies: alcohol use, drug use, smoking Immunizations: UTD Reviewed Nursing Documentation: PMH: Agreed, PSxH: Agreed Nursing Documentation-PMH Hx Cardiac Problems: Yes - High Cholesterol Hx Hypertension: Yes Hx Cancer: No Hx Gastrointestinal Problems: Yes - constipation issues will due for colonoscopy Hx Neurological Problems: Yes Hx Cerebrovascular Accident: Yes - stroke 1998 Review of Systems All Other Systems: negative except mentioned in HPI Physical Exam Vital Signs Date Time Temp Pulse Resp B/P Pulse Ox O2 Delivery O2 Flow Rate FiO2 12/17/16 07:39 97.9 51 16 229/95 98 Room Air Sp02 EP Interpretation: reviewed, normal General Appearance: normal inspection, well appearing, no apparent distress, alert, GCS 15, non-toxic Head: normocephalic, atraumatic Eyes: bilateral eye EOMI, bilateral eye PERRL ENT: normal ENT inspection, hearing grossly normal, normal voice Neck: normal inspection, full range of motion, supple, no meningismus, no bony tend, no carotid bruits, supple/symm/no masses, other - no palpable FB on anterior neck exam Respiratory: normal inspection, lungs clear, normal breath sounds, no respiratory distress, no retraction, no wheezing Cardiovascular #1: regular rate, rhythm, no edema Gastrointestinal: normal inspection, normal bowel sounds, non tender, soft, no guarding, no hernia Genitourinary: no CVA tenderness Musculoskeletal: normal inspection, back normal, normal range of motion, Roger' s Sign negative Neurologic: normal inspection, alert, oriented x3, responsive, 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 Likely because his Losartan tablet was not swallowed, fully absorbed No chest pain, headache, abd pain. Doubt HTN emergency. HR borderline bradycardic as is on metoprolol. Able to swallow water without regurgitation, coughing Lungs CTAB. No wheezing Doubt FB in airway CT scanner is down - offered to send patient to [facility] for CT but patient refused Feels better after swallowed viscous lidocaine Will likely dissolve DC home Last Vital Signs Date Time Temp Pulse Resp B/P Pulse Ox O2 Delivery O2 Flow Rate FiO2 12/17/16 07:58 97.9 53 20 216/87 98 Room Air Status: improved Disposition: HOME, SELF-CARE Referrals: NON PHYSICIAN (PCP) PEBBLES HALL M.D. Dec 17, 2016 08:04
[2016-12-17] MEDS ORDERED: Lidocaine 2% Visc 15ml soln ORAL ONE (08:15)
[2016-12-17 08:27] VITALS: BP 199/84
[2016-12-17 08:32] VITALS: BP 199/84
== END 2016-12-17 08:39 | disposition home or self-care (01) ==
LOC: EMR 07:50
DX: R09.89 Other specified symptoms and signs involving the circulatory and respiratory systems (principal); I10 Essential (primary) hypertension; Z86.73 Personal history of transient ischemic attack (TIA), and cerebral infarction without residual deficits
CPT/HCPCS: 99282

== ENCOUNTER 2017-03-26 06:13 | Emergency (ER) | payer MEDICARE ==
[~2017-03-26] VITALS: Ht 172.7 cm; Wt 93.0 kg
[~2017-03-26 06:13] MED LIST changes: +AMIODARONE HCL400 M1 ORAL; +ELIQUIS5 MG PO; +LOSARTAN POTASS25 MG ORAL; +ZANTAC150 MG ORAL
[2017-03-26 06:30] VITALS: BP 218/101
[2017-03-26] MEDS ORDERED: TIMOPTIC 0.5%1 EACH OP (06:38)
[2017-03-26] MEDS ORDERED: METOPROLOL TART50 M1 ORAL (06:38)
[2017-03-26] MEDS ORDERED: HYZAAR 100-251 EACH ORAL (06:39)
--- NOTE | 2017-03-26 06:58 | Emergency Room Report ---
History of Present Illness General Chief Complaint: Hypertension Source: Patient, Medical Record Present Illness HPI 76-year-old male history of atrial fibrillation on Eliquis, hypertension, presenting with high blood pressure. Patient states that he ran out of his medications for 3-4 days, (states that he misplaced them actually), got them refilled yesterday and has taken one dose of every medication yesterday at 1 AM. Patient states that he took his blood pressure last night and stated that it was high. Patient states that he took his blood pressure again this morning and it was still high so he came into the emergency room. Patient is denying any symptoms. States that he does not have any headache, blurry vision, chest pain, shortness of breath, nausea vomiting. Patient states that he has a primary care doctor which he can see in the next couple days. Allergies: Coded Allergies: No Known Allergies (Unverified , 03/26/17) Patient History Past Medical History: see triage record Past Surgical History: none Pertinent Family History: none Reviewed Nursing Documentation: PMH: Agreed, PSxH: Agreed Nursing Documentation-PMH Past Medical History: No History, Except For Hx Cardiac Problems: Yes - High Cholesterol, blind left eye Hx Hypertension: Yes Hx Cancer: No Hx Gastrointestinal Problems: Yes Hx Neurological Problems: Yes Hx Cerebrovascular Accident: Yes - stroke 1998 Review of Systems All Other Systems: negative except mentioned in HPI Physical Exam Vital Signs Date Time Temp Pulse Resp B/P (MAP) Pulse Ox O2 Delivery O2 Flow Rate FiO2 03/26/17 06:20 98.4 56 16 218/101 99 Room Air Sp02 EP Interpretation: reviewed, normal General Appearance: normal inspection, well appearing, no apparent distress, alert, GCS 15, non-toxic Head: normocephalic, atraumatic Eyes: bilateral eye normal inspection, bilateral eye PERRL, bilateral eye EOMI ENT: normal ENT inspection, normal pharynx, normal voice, moist mucus membranes Neck: normal inspection, full range of motion, supple Respiratory: normal inspection, lungs clear, normal breath sounds, no respiratory distress, no retraction, no wheezing, speaking full sentences, chest symmetrical Cardiovascular #1: normal inspection, regular rate, rhythm, no edema, normal capillary refill Cardiovascular #2: 2+ radial (R), 2+ radial (L) Gastrointestinal: normal inspection, non tender, soft, non-distended, no guarding Genitourinary: no CVA tenderness Musculoskeletal: normal inspection, back normal, normal range of motion, non- tender Neurologic: normal inspection, alert, oriented x3, responsive, motor strength/ tone normal, sensory intact, normal gait, speech normal Psychiatric: normal inspection, judgement/insight normal, memory normal Skin: normal inspection, normal color, no rash, warm/dry, well hydrated, normal turgor Medical Decision Making Diagnostic Impression: Primary Impression: Hypertension ER Course 76-year-old male with asymptomatic hypertension DDX: Hypertension, also related to taking no meds last 3-4 days Plan: EKG chest x-ray No labs indicated at this time as patient is asymptomatic ER course: Patient remains asymptomatic, conversing with at bedside, not in acute distress Took his dosage of home meds in emergency room Took metoprolol and cozar Systolic came down to 190 remains NAD, will dc home Disposition: Patient is to be discharged to home. Instructed to take his home BP meds Patient is instructed to follow up with their primary care doctor within 5 days. Strict return precautions discussed with patient such as fever, chills, chest pain shortness of breath, headache,, nausea, vomiting, which may indicate severe illness. Patient verbalizes understanding and agrees with plan. Please note that this Emergency Department Report was dictated using [employer] station server technology software, occasionally this can lead to erroneous entry secondary to interpretation by the dictation equipment EKG Diagnostic Results EP Interpretation: Yes Rate: bradycardic Rhythm: NSR ST Segments: sinus bassam, RBBB, LAFB, findings similar to EKG dated 05/17/16 ASA given to patient: No Rhythm Strip EP Interpretation: Yes Rate: 60 Rhythm: NSR, no PVCs, no ectopy Chest X-ray CXR: Ordered: Yes 1 view Indication: Hypertension EP interpretation: Yes Interpretation: cardiomegaly, L hemidiaphragm elevation (similar to previous in may 2016) Impression: No acute disease Electronically signed by Tracy Maria MD Last Vital Signs Date Time Temp Pulse Resp B/P (MAP) Pulse Ox O2 Delivery O2 Flow Rate FiO2 03/26/17 06:30 56 16 Room Air 03/26/17 06:20 98.4 218/101 99 Disposition: HOME, SELF-CARE Condition: Improved Referrals: NON PHYSICIAN (PCP) Patient Instructions: High Blood Pressure (Hypertension) Tracy Maria M.D. Mar 26, 2017 06:58
[2017-03-26 08:22] VITALS: BP 187/100
[2017-03-26 08:36] VITALS: BP 192/85
--- NOTE | 2017-03-26 08:50 | Diagnostic Imaging Report ---
Indication: Chest pain Technique: One view of the chest Comparison: 05/15/2016 and 05/15/2016 Findings: Atelectasis or patchy consolidation is present at the right lung base. There is elevation of the left hemidiaphragm. The heart is enlarged. The pleural spaces are clear. Pulmonary vasculature is normal. Aortic calcifications are again seen. Impression: Right basilar atelectasis or consolidation Elevated left hemidiaphragm
[2017-03-26 09:01] VITALS: BP 192/82
--- NOTE | 2017-04-02 15:50 | Cardiology Report ---
APPROVED REPORT EKG Measurement Heart [id number] HI 184P4 [id number] Sinus bradycardia Right bundle branch block Left anterior fascicular block Bifascicular block Left ventricular hypertrophy with repolarization abnormality Cannot rule out Septal infarct, age undetermined Abnormal ECG
== END 2017-03-26 09:04 | disposition home or self-care (01) ==
LOC: EMR 06:42
DX: I10 Essential (primary) hypertension (principal); H54.40 Blindness, one eye, unspecified eye; Z86.73 Personal history of transient ischemic attack (TIA), and cerebral infarction without residual deficits
CPT/HCPCS: 71010; 93005; 99283

== ENCOUNTER 2018-04-01 12:24 | Inpatient (IN) | payer MEDICARE ==
[~2018-04-01] VITALS: Ht 172.7 cm; Wt 115.7 kg
[~2018-04-01 12:24] MED LIST changes: +HYZAAR 100-251 EACH ORAL; +METOPROLOL TART50 M1 ORAL; +TIMOPTIC 0.5%1 EACH OP
[2018-04-01] MEDS ORDERED: COLACE100 MG ORAL (12:28)
[2018-04-01] MEDS ORDERED: jardiance (12:40)
[2018-04-01] MEDS ORDERED: AMLODIPINE BESY10 MG ORAL (12:40)
[2018-04-01] MEDS ORDERED: FOLIC ACID1 MG ORAL (12:40)
[2018-04-01 12:52] VITALS: BP 138/61
[2018-04-01 12:56] LABS: BASOPHILS % (AUTO) 0.9 % (0.0-2.0); EOSINOPHILS % (AUTO) 0.8 % (0.0-3.0); HEMATOCRIT 41.4 % (42.0-52.0); HEMOGLOBIN 13.6 G/DL (14.2-18.0); LYMPHOCYTES % (AUTO) 6.9 % (20.0-45.0); MEAN CORPUSCULAR VOLUME 84 FL (80-99); MONOCYTES % (AUTO) 9.1 % (1.0-10.0); NEUTROPHILS % (AUTO) 82.3 % (45.0-75.0); PLATELET COUNT 225 K/UL (150-450); RED CELL DISTRIBUTION WIDTH 12.2 % (11.6-14.8); WHITE BLOOD COUNT 11.8 K/UL (4.8-10.8)
[2018-04-01 13:04] LABS: INR 1.1 (0.9-1.1)
[2018-04-01 13:11] LABS: APPEARANCE,URINE CLEAR; BILIRUBIN, URINE NEGATIVE (NEGATIVE); GLUCOSE, URINE (UA) NEGATIVE (NEGATIVE); KETONES,URINE NEGATIVE (NEGATIVE); LEUKOCYTE ESTERASE ,URINE NEGATIVE (NEGATIVE); NITRITE,URINE NEGATIVE (NEGATIVE); PH,URINE 6 (4.5-8.0); PROTEIN,URINE 3+ (NEGATIVE); UROBILINOGEN,URINE 1 MG/DL (0.0-1.0)
--- NOTE | 2018-04-01 13:27 | Emergency Room Report ---
History of Present Illness General Chief Complaint: General Complaint Source: Patient, Family Member Present Illness HPI Patient is a 77-year-old male brought in by EMS after increased lower extremity rash. Patient reports having recently seen Dr. Luis Alcala. The patient was noted to have a prior history of cardiac arrhythmia as well as CHF and diabetes. The patient takes Eliquis was due to atrial fibrillation. The patient recently reinitiated his diuretics. Allergies: Coded Allergies: No Known Allergies (Unverified , 03/26/17) Patient History Past Medical History: see triage record Reviewed Nursing Documentation: PMH: Agreed; PSxH: Agreed Nursing Documentation-PMH Hx Cardiac Problems: Yes - High Cholesterol, blind left eye, CHF Hx Hypertension: Yes Hx Diabetes: Yes Hx Cancer: No Hx Gastrointestinal Problems: Yes Hx Neurological Problems: Yes Hx Cerebrovascular Accident: Yes - stroke 1998 Review of Systems All Other Systems: negative except mentioned in HPI Physical Exam Vital Signs Date Time Temp Pulse Resp B/P (MAP) Pulse Ox O2 Delivery O2 Flow Rate FiO2 04/01/18 12:22 98.4 100 16 160/85 96 Room Air Sp02 EP Interpretation: reviewed, normal General Appearance: normal inspection, no apparent distress, alert, GCS 15, obese, Chronically Ill Head: atraumatic ENT: normal ENT inspection, hearing grossly normal, normal voice Neck: normal inspection, full range of motion, supple, no bony tend Respiratory: normal inspection, normal breath sounds, no respiratory distress, no retraction, no wheezing Cardiovascular #1: regular rate, rhythm, edema - 3+ Gastrointestinal: normal inspection, normal bowel sounds, non tender, soft, no guarding, no hernia Genitourinary: no CVA tenderness Musculoskeletal: normal inspection, back normal, normal range of motion Neurologic: normal inspection, alert, oriented x3, responsive, register of wills III-XII nml as tested, speech normal Psychiatric: normal inspection, judgement/insight normal, mood/affect normal Skin: other - facial and extremity circular rash to palms and soles, nonblanching Medical Decision Making Diagnostic Impression: Primary Impression: Vasculitis Additional Impressions: CHF (congestive heart failure) Diabetes ER Course Patient presented for skin rash. Differential diagnosis included was not limited to sepsis, vasculitis, erythema multiforme, secondary syphilis among others.Because of complexity of patient's case laboratory testing and imaging studies were ordered. EKG interpreted by me showed normal sinus rhythm with a rate of [address] changes. Patient was noted to have the bifascicular block. The patient started on IV Lasix as well as IV antibiotics. Laboratory testing was ordered. The patient was discussed with Dr. Conklin for inpatient management due to covering physician. Labs Test 04/01/18 12:40 04/01/18 13:00 White Blood Count 11.8 K/UL (4.8-10.8) Red Blood Count 4.90 M/UL (4.70-6.10) Hemoglobin 13.6 G/DL (14.2-18.0) Hematocrit 41.4 % (42.0-52.0) Mean Corpuscular Volume 84 FL (80-99) Mean Corpuscular Hemoglobin 27.8 PG (27.0-31.0) Mean Corpuscular Hemoglobin Concent 32.9 G/DL (32.0-36.0) Red Cell Distribution Width 12.2 % (11.6-14.8) Platelet Count 225 K/UL (150-450) Mean Platelet Volume 7.8 FL (6.5-10.1) Neutrophils (%) (Auto) 82.3 % (45.0-75.0) Lymphocytes (%) (Auto) 6.9 % (20.0-45.0) Monocytes (%) (Auto) 9.1 % (1.0-10.0) Eosinophils (%) (Auto) 0.8 % (0.0-3.0) Basophils (%) (Auto) 0.9 % (0.0-2.0) Prothrombin Time 11.1 SEC (9.30-11.50) Prothromb Time International Ratio 1.1 (0.9-1.1) Activated Partial Thromboplast Time 34 SEC (23-33) Last Vital Signs Date Time Temp Pulse Resp B/P (MAP) Pulse Ox O2 Delivery O2 Flow Rate FiO2 04/01/18 12:52 68 15 Room Air 04/01/18 12:52 98.4 138/61 100 Status: unchanged Disposition: ADMITTED INPATIENT Condition: Serious Scripts Amlodipine Besylate* (AMLODIPINE BESYLATE*) 10 Mg Tablet 10 MG ORAL DAILY for 30 Days, #30 TAB Prov: David Conklin MD 04/04/18 Apixaban (ELIQUIS) 5 Mg Tablet 2.5 MG PO BID for 30 Days, #30 TAB Prov: David Conklin MD 04/04/18 Losartan Potassium* (LOSARTAN POTASSIUM*) 25 Mg Tablet 25 MG ORAL DAILY for 30 Days, #30 TAB Prov: David Conklin MD 04/04/18 Furosemide* (LASIX*) 20 Mg Tablet 20 MG ORAL DAILY for 30 Days, #30 TAB Prov: David Cnoklin MD 04/04/18 Atorvastatin Calcium* (ATORVASTATIN CALCIUM*) 20 Mg Tablet 20 MG ORAL BEDTIME for 30 Days, #30 TAB Prov: David Conklin MD 04/04/18 Amiodarone Hcl* (PACERONE*) 200 Mg Tablet 200 MG ORAL DAILY for 30 Days, #30 TAB Prov: David Conklin MD 04/04/18 Apixaban (ELIQUIS) 2.5 Mg Tablet 5 MG ORAL Q12HR for 30 Days, #30 TAB Prov: David Conklin MD 04/04/18 Amiodarone Hcl* (AMIODARONE HCL*) 400 Mg Tablet 200 MG ORAL DAILY for 30 Days, #30 TAB Prov: David Conklin MD 04/04/18 Referrals: NON PHYSICIAN (PCP) Jostin Sanford MD Apr 01, 2018 13:27
[2018-04-01] MEDS ORDERED: Piperacillin/Tazobactam 3.375 GM in NS 110 ML IVPB ONE (13:30)
[2018-04-01] MEDS ORDERED: Vancomycin 1.5gm/D5W 250ml 250 ML IVPB ONE (13:30)
[2018-04-01 13:36] LABS: COLOR,URINE YELLOW
[2018-04-01 13:44] LABS: ANION GAP 14 mmol/L (5-15); BLOOD UREA NITROGEN 28 mg/dL (7-18); CALCIUM 9.2 MG/DL (8.5-10.1); CARBON DIOXIDE 25 MMOL/L (21-32); CHLORIDE 100 MMOL/L (98-107); CREATININE 1.8 MG/DL (0.55-1.30); POTASSIUM 3.2 MMOL/L (3.5-5.1); SODIUM 139 MMOL/L (136-145)
[2018-04-01 13:56] LABS: ALANINE AMINOTRANSFERASE 25 U/L (12-78); ALBUMIN 2.6 G/DL (3.4-5.0); ALBUMIN/GLOBULIN RATIO 0.5 (1.0-2.7); ALKALINE PHOSPHATASE 80 U/L (46-116); ASPARTATE AMINO TRANSFERASE 25 U/L (15-37); BILIRUBIN,TOTAL 0.5 MG/DL (0.2-1.0); CKMB 0.9 NG/ML (0.0-3.6); CREATINE KINASE 358 U/L (26-308); PHOSPHORUS 2.9 MG/DL (2.5-4.9)
[2018-04-01 14:30] VITALS: BP 151/66
[2018-04-01] MEDS ORDERED: Morphine Sulfate 2mg/ml Inj IVP PRN (17:15)
[2018-04-01] MEDS: NovoLOG Insulin Flexpen SUBQ SCH ×2 (17:43→20:35)
[2018-04-01] MEDS: Zoysn 3.37gm in NS 100ML IVPB SCH (17:43)
[2018-04-01 20:00] VITALS: BP 126/60
[2018-04-01] MEDS ORDERED: Heparin 5000 units/ml inj SUBQ SCH (21:00)
--- NOTE | 2018-04-01 21:07 | History and Physical ---
History of Present Illness General Date patient seen: Apr 01, 2018 Time patient seen: 17:28 Reason for Hospitalization: rash on hands and feet Present Illness HPI 77 yo male with h/o chf, htn, dm, afib presents with complaints of a new rash on his hands and feet. States he noticed this for the past 3 or 4 days. Patient is a poor historian and admits to medication noncompliance. Patient states he has been living in a hotel room for the past week. Denies any itchiness, states there mild pain when making a fist with his hand. Denies any fevers, chills, nausea/vomiting, cp/sob, diarrhea/constipation/abd pain. Patient denies any recent travels. Denies alcohol use, smoking, or drug use. Allergies: Coded Allergies: No Known Allergies (Unverified , 03/26/17) Medication History Scheduled Amiodarone Hcl* (Amiodarone Hcl*), 200 MG ORAL DAILY, (Reported) Amlodipine Besylate* (Amlodipine Besylate*), 10 MG ORAL DAILY, (Reported) Apixaban (Eliquis), 5 MG ORAL Q12HR Atorvastatin Calcium* (Atorvastatin Calcium*), 20 MG ORAL BEDTIME, (Reported) Atorvastatin Calcium* (Atorvastatin Calcium*), 20 MG ORAL BEDTIME, (Reported) Tfpydwkxm-Wrb-7* (Crmcquuh-Fzr-7*), 1 PATCH TDERMAL QWEEK, (Reported) Docusate Sodium* (Colace*), 100 MG ORAL TWICE A DAY, (Reported) Folic Acid* (Folic Acid*), 1 MG ORAL DAILY, (Reported) Furosemide* (Lasix*), 20 MG ORAL DAILY, (Reported) Latanoprost* (Xalatan*), 1 DROP LEFT EYE BEDTIME, (Reported) Losartan Potassium* (Losartan Potassium*), 25 MG ORAL DAILY, (Reported) Losartan/Hydrochlorothiazide 100-25 Tablet (Hyzaar 100-25 Tablet), 1 TAB ORAL DAILY, (Reported) Metformin Hcl* (Metformin Hcl*), 500 MG ORAL TWICE A DAY, (Reported) Metoprolol Tartrate* (Metoprolol Tartrate*), 100 MG ORAL EVERY 12 HOURS, ( Reported) Metoprolol Tartrate* (Metoprolol Tartrate*), 50 MG ORAL EVERY 12 HOURS, ( Reported) Potassium Chloride (Potassium Chloride), 20 MEQ ORAL TWICE A DAY, (Reported) Ranitidine Hcl* (Zantac*), 150 MG ORAL TWICE A DAY, (Reported) Simvastatin (Zocor), 20 MG ORAL BEDTIME, (Reported) [jardiance], 10 MG DAILY, (Reported) Scheduled PRN Hydrocodone Bit/Acetaminophen 5-325* ([place] 5-325*), 1 TAB ORAL Q6H PRN for For Pain, (Reported) Miscellaneous Medications Apixaban (Eliquis), 5 MG PO, (Reported) Timolol Maleate/Pf (Timoptic 0.5% Ocudose Drop), 1 EACH OP, (Reported) Patient History History Provided By: Patient Healthcare decision maker Resuscitation status Full Code Advanced Directive on File Family History Family History: Patient reports no known family medical history. Review of Systems Constitutional: Denies: see HPI, chills, sweats, fever, malaise, weakness, other Eye: Denies: no symptoms, see HPI, eye pain, blurred vision, tearing, double vision, nose pain, nose congestion, acuity changes, discharge, other ENT: Denies: no symptoms, see HPI, ear pain, ear discharge, nose pain, nose congestion, throat pain, throat swelling, mouth pain, hearing loss, nasal discharge, other Respiratory: Denies: no symptoms, see HPI, cough, orthopnea, shortness of breath, stridor, wheezing, CARROLL, sputum, other Cardiovascular: Denies: no symptoms, see HPI, chest pain, edema, palpitations, syncope, PND, other Gastrointestinal: Denies: no symptoms, see HPI, abdominal pain, constipation, diarrhea, nausea, vomiting, melena, hematemesis, other Genitourinary: Denies: no symptoms, see HPI, discharge, dysuria, frequency, hematuria, pain, retention, incontinence, urgency, vag bleed/dc, other Musculoskeletal: Denies: no symptoms, see HPI, back pain, gout, joint pain, joint swelling, muscle pain, muscle stiffness, other Skin: Reports: rash - on hands and feet , lesions - on hands and feet; Denies: no symptoms, see HPI, change in hair/nails, dryness, other Psychiatric: Denies: no symptoms, see HPI, prior hx, anxiety, depressed feelings, emotional problems, SI, HI, hallucinations, other Neurological: Denies: no symptoms, see HPI, headache, numbness, paresthesia, seizure, tingling, tremors, focal weakness, syncope, dizziness, other Endocrine: Denies: no symptoms, see HPI, excessive sweating, flushing, intolerance to temperature, increased thirst, increased urine, unexplained weight loss, other Hematologic/Lymphatic: Denies: no symptoms, see HPI, anemia, blood clots, easy bleeding, easy bruising, swollen glands, diathesis, other Physical Exam General Appearance: no apparent distress, alert HEENT: normocephalic, atraumatic, anicteric Neck: non-tender, normal alignment, supple, normal inspection Respiratory/Chest: chest wall non-tender, lungs clear, normal breath sounds, no respiratory distress, no accessory muscle use Cardiovascular/Chest: normal peripheral pulses, normal rate, regular rhythm Abdomen: normal bowel sounds, non tender, soft, no organomegaly, no mass Extremities: normal range of motion, severe edema, pitting Skin Exam: warm/dry, other - erythematous papules noted on b/l hand and feet including webs of fingers and toes. Neurologic: cook fruit II-XII grossly normal, no motor/sensory deficits, alert, oriented x 3, responsive, normal mood/affect Musculoskeletal: normal muscle bulk Last 24 Hour Vital Signs Date Time Temp Pulse Resp B/P (MAP) Pulse Ox O2 Delivery O2 Flow Rate FiO2 04/01/18 20:00 70 04/01/18 16:00 64 04/01/18 15:20 Room Air 04/01/18 14:30 98.5 67 18 151/66 100 Room Air 04/01/18 13:45 98.4 68 15 138/61 100 Room Air 04/01/18 12:52 68 15 Room Air 04/01/18 12:52 98.4 68 15 138/61 100 Room Air 04/01/18 12:22 98.4 100 16 160/85 96 Room Air Laboratory Tests Test 04/01/18 12:40 04/01/18 13:00 04/01/18 15:15 White Blood Count 11.8 K/UL (4.8-10.8) H Red Blood Count 4.90 M/UL (4.70-6.10) Hemoglobin 13.6 G/DL (14.2-18.0) L Hematocrit 41.4 % (42.0-52.0) L Mean Corpuscular Volume 84 FL (80-99) Mean Corpuscular Hemoglobin 27.8 PG (27.0-31.0) Mean Corpuscular Hemoglobin Concent 32.9 G/DL (32.0-36.0) Red Cell Distribution Width 12.2 % (11.6-14.8) Platelet Count 225 K/UL (150-450) Mean Platelet Volume 7.8 FL (6.5-10.1) Neutrophils (%) (Auto) 82.3 % (45.0-75.0) H Lymphocytes (%) (Auto) 6.9 % (20.0-45.0) L Monocytes (%) (Auto) 9.1 % (1.0-10.0) Eosinophils (%) (Auto) 0.8 % (0.0-3.0) Basophils (%) (Auto) 0.9 % (0.0-2.0) Erythrocyte Sedimentation Rate 52 MM/HR (0-20) H Prothrombin Time 11.1 SEC (9.30-11.50) Prothromb Time International Ratio 1.1 (0.9-1.1) Activated Partial Thromboplast Time 34 SEC (23-33) H Sodium Level 139 MMOL/L (136-145) Potassium Level 3.2 MMOL/L (3.5-5.1) L Chloride Level 100 MMOL/L (98-107) Carbon Dioxide Level 25 MMOL/L (21-32) Anion Gap 14 mmol/L (5-15) Blood Urea Nitrogen 28 mg/dL (7-18) H Creatinine 1.8 MG/DL (0.55-1.30) H Estimat Glomerular Filtration Rate mL/min (>60) Glucose Level 241 MG/DL (74-106) H Hemoglobin A1c 6.9 % (4.3-6.0) H Lactic Acid Level 2.70 mmol/L (0.4-2.0) H 1.90 mmol/L (0.66-2.22) Calcium Level 9.2 MG/DL (8.5-10.1) Phosphorus Level 2.9 MG/DL (2.5-4.9) Magnesium Level 1.9 MG/DL (1.8-2.4) Total Bilirubin 0.5 MG/DL (0.2-1.0) Aspartate Amino Transf (AST/SGOT) 25 U/L (15-37) Alanine Aminotransferase (ALT/SGPT) 25 U/L (12-78) Alkaline Phosphatase 80 U/L (46-116) Total Creatine Kinase 358 U/L (26-308) H Creatine Kinase MB 0.9 NG/ML (0.0-3.6) Creatine Kinase MB Relative Index 0.2 Troponin I 0.046 ng/mL (0.000-0.056) Total Protein 8.3 G/DL (6.4-8.2) H Albumin 2.6 G/DL (3.4-5.0) L Globulin 5.7 g/dL Albumin/Globulin Ratio 0.5 (1.0-2.7) L Rapid Plasma Reagin Pending Urine Color Yellow Urine Appearance Clear Urine pH 6 (4.5-8.0) Urine Specific [place] 1.015 (1.005-1.035) Urine Protein 3+ (NEGATIVE) H Urine Glucose (UA) Negative (NEGATIVE) Urine Ketones Negative (NEGATIVE) Urine Blood 4+ (NEGATIVE) H Urine Nitrite Negative (NEGATIVE) Urine Bilirubin Negative (NEGATIVE) Urine Urobilinogen 1 MG/DL (0.0-1.0) H Urine Leukocyte Esterase Negative (NEGATIVE) Urine RBC 2-4 /HPF (0 - 0) H Urine WBC 0-2 /HPF (0 - 0) Urine Squamous Epithelial Cells Occasional /LPF Urine Bacteria Occasional /HPF (NONE) Height (Feet): 5 Height (Inches): 8.00 Weight (Pounds): 260 Medications Current Medications Medications (Trade) Dose Ordered Sig/Vini Route PRN Reason Start Time Stop Time Status Last Admin Dose Admin Acetaminophen (Tylenol) 650 mg Q6H PRN ORAL Mild Pain/Temp > 100.5 04/01/18 17:15 05/01/18 17:14 Dextrose (Dextrose 50%) 25 ml Q30M PRN IV Hypoglycemia 04/01/18 13:45 05/01/18 13:44 Dextrose (Dextrose 50%) 50 ml Q30M PRN IV Hypoglycemia 04/01/18 13:45 05/01/18 13:44 Heparin Sodium (Porcine) (Heparin 5000 units/ml) 5,000 units EVERY 12 HOURS SUBQ 04/01/18 21:00 05/01/18 20:59 04/01/18 20:37 Insulin Aspart (NovoLOG) BEFORE MEALS AND HS SUBQ 04/01/18 16:30 05/01/18 16:29 04/01/18 20:35 Morphine Sulfate (Morphine Sulfate) 1 mg Q6HR PRN IVP severe pain 04/01/18 17:15 04/08/18 17:14 Permethrin (Elimite) 1 applic ONCE TOPIC 04/01/18 19:30 04/01/18 21:00 04/01/18 20:10 Piperacillin Sod/ Tazobactam Sod 3.375 gm/Sodium Chloride 110 ml @ 27.5 mls/hr Q8H IVPB 04/01/18 16:00 04/08/18 15:59 04/01/18 17:43 Assessment/Plan Problem List: (1) Cellulitis Assessment & Plan: cellulitis of b/l hands and feet bcx sent x 2 rpr sent by ed along with esr ID consulted concerns for scabies.. permethrin to be given (patient living in hotel recently , poor hygiene ) trav felipe monitor ICD Codes: L03.90 - Cellulitis, unspecified SNOMED: 529874662 Qualifiers: (2) CHF (congestive heart failure) Assessment & Plan: stable cont home meds lasix ICD Codes: I50.9 - Heart failure, unspecified SNOMED: 97942159 Qualifiers: Qualified Codes: I50.22 - Chronic systolic (congestive) heart failure (3) Noncompliance Assessment & Plan: educated on compliance for over 15 mins patient states understanding ICD Codes: Z91.19 - Patient's noncompliance with other medical treatment and regimen SNOMED: 8323145 (4) MARY (acute kidney injury) Assessment & Plan: unsure of baseline 1.6 monitor closely ICD Codes: N17.9 - Acute kidney failure, unspecified SNOMED: 62918774 (5) Atrial fibrillation with RVR Assessment & Plan: rate controlled eliquis home amio ICD Codes: I48.91 - Unspecified atrial fibrillation SNOMED: 425495400478044 (6) CVA (cerebral vascular accident) Assessment & Plan: chronic resume home meds ICD Codes: I63.9 - Cerebral infarction, unspecified SNOMED: 111459350 (7) Diabetes Assessment & Plan: iss accuchecks check [id number] ICD Codes: E11.9 - Type 2 diabetes mellitus without complications SNOMED: 28627762 Qualifiers: Qualified Codes: E11.9 - Type 2 diabetes mellitus without complications; Z79.4 - long term care pharmacist (current) use of insulin Status: stable Assessment/Plan scd: michael, scd diet: ccd5/cardiac David Conklin MD Apr 01, 2018 21:07
--- NOTE | 2018-04-01 21:49 | Consultation ---
Consult Note Consult Note # [id number] Jasen Meadows MD Apr 01, 2018 21:49
[2018-04-02] VITALS: BP 134/68
[2018-04-02] MEDS: Zoysn 3.37gm in NS 100ML IVPB SCH ×2 (00:23→09:05)
[2018-04-02 04:00] VITALS: BP 134/76
--- NOTE | 2018-04-02 04:00 | Consultation ---
DATE OF CONSULTATION: 04/01/2018 INFECTIOUS DISEASES CONSULTATION CONSULTING PHYSICIAN: Jasen Meadows M.D. REFERRING PHYSICIAN: David Conklin M.D. REASON FOR CONSULTATION: Evaluation of the patient for rash, antibiotic management, mild leukocytosis. HISTORY OF PRESENT ILLNESS: The patient is a 77-year-old old male with multiple medical problems who came bilateral feet and hand and swelling of the ankles limiting his mobility. The patient developed the above symptoms three days ago. The patient lives in a hotel with . is healthy. No history of exposure to children. Infectious Diseases consultation has been requested for further evaluation of the patient and antibiotic management. PAST MEDICAL HISTORY: 1. Diabetes. 2. CHF. 3. Atrial fibrillation. 4. Hyperlipidemia. 5. Gout. ALLERGIES: No known drug allergies. SOCIAL HISTORY: As mentioned above. FAMILY HISTORY: Noncontributing. MEDICATIONS: Zosyn, , vancomycin. PHYSICAL EXAMINATION: VITAL SIGNS: Temperature 97.9, pulse 86, respiratory rate 18, and blood pressure 126/60. HEENT: No pale conjunctivae. No icterus. NECK: No lymphadenopathy. CHEST: Clear. HEART: S1 and S2. ABDOMEN: Soft and obese. EXTREMITIES: No cyanosis. SKIN: The patient has papular rash over the bilateral feet and hands. NEUROLOGIC: Awake. LABORATORY AND DIAGNOSTIC DATA: White blood cells 11.8, hemoglobin 13, and platelets 225. UA unremarkable. Lactic acid 2.7. Hemoglobin A1c 6.9. Troponin 0.046. BUN 28, creatinine 1.8. ALT unremarkable. RPR is pending. Chest x-ray, right basilar atelectasis versus consolidation. ASSESSMENT AND PLAN: The patient is a 77-year-old male with bilateral hands and feet rash, suggestive of vpoi-akol-uty-mouth disease due to Coxsackie viruses. (the patient does not have oral rash). 1. Doubt pneumonia. The patient does not have clinical significant cough. 2. Rule out probable sepsis (less likely). 3. Monitor CBC. 4. Monitor BMP. 5. Continue Zosyn for now (may stop tomorrow if patient stays stable and no significant symptoms). Based on the patient's clinical course and labs, we will do further recommendations. Jasen Meadows M.D. DR: Kayley JOB#: [id number] CC:
[2018-04-02] MEDS: NovoLOG Insulin Flexpen SUBQ SCH ×4 (06:30→21:26)
[2018-04-02 08:00] VITALS: BP 146/80
[2018-04-02 08:07] LABS: HEMATOCRIT 36.9 % (42.0-52.0); HEMOGLOBIN 12.5 G/DL (14.2-18.0); MEAN CORPUSCULAR VOLUME 85 FL (80-99); PLATELET COUNT 227 K/UL (150-450); RED BLOOD COUNT 4.35 M/UL (4.70-6.10); RED CELL DISTRIBUTION WIDTH 12.1 % (11.6-14.8); WHITE BLOOD COUNT 9.9 K/UL (4.8-10.8)
[2018-04-02 08:14] LABS: ANION GAP 8 mmol/L (5-15); BLOOD UREA NITROGEN 25 mg/dL (7-18); CALCIUM 8.8 MG/DL (8.5-10.1); CARBON DIOXIDE 31 MMOL/L (21-32); CHLORIDE 102 MMOL/L (98-107); CREATININE 1.7 MG/DL (0.55-1.30); POTASSIUM 2.8 MMOL/L (3.5-5.1); SODIUM 142 MMOL/L (136-145)
[2018-04-02] MEDS: Eliquis 2.5mg tablet ORAL SCH ×2 (09:05→17:35)
[2018-04-02] MEDS: Amiodarone 200mg tab ORAL SCH (09:06)
--- NOTE | 2018-04-02 09:32 | Consultation ---
History of Present Illness General Date patient seen: Apr 02, 2018 Chief Complaint: General Complaint Present Illness HPI 77 year old male presents with LE edema, non compliant with medications. He has lower extremity blisters and rashes and difficulty ambulating. He has a hx of CHF, DM, HTN, AFIB. Patient is a poor historian. He lives in a hotel room. NO fevers, chills, N/V/SOB/CP. NO travel hx, no sick contacts. Patient showing SR with 1st degree BBB on the monitor. Echo 2017 Left ventricular ejection fraction estimated to be 60-65 %. Allergies: Coded Allergies: No Known Allergies (Unverified , 03/26/17) Medication History Scheduled Amiodarone Hcl* (Amiodarone Hcl*), 200 MG ORAL DAILY, (Reported) Amlodipine Besylate* (Amlodipine Besylate*), 10 MG ORAL DAILY, (Reported) Apixaban (Eliquis), 5 MG ORAL Q12HR Atorvastatin Calcium* (Atorvastatin Calcium*), 20 MG ORAL BEDTIME, (Reported) Atorvastatin Calcium* (Atorvastatin Calcium*), 20 MG ORAL BEDTIME, (Reported) Enaeexghd-Agp-7* (Txvyxdvj-Nlk-9*), 1 PATCH TDERMAL QWEEK, (Reported) Docusate Sodium* (Colace*), 100 MG ORAL TWICE A DAY, (Reported) Folic Acid* (Folic Acid*), 1 MG ORAL DAILY, (Reported) Furosemide* (Lasix*), 20 MG ORAL DAILY, (Reported) Latanoprost* (Xalatan*), 1 DROP LEFT EYE BEDTIME, (Reported) Losartan Potassium* (Losartan Potassium*), 25 MG ORAL DAILY, (Reported) Losartan/Hydrochlorothiazide 100-25 Tablet (Hyzaar 100-25 Tablet), 1 TAB ORAL DAILY, (Reported) Metformin Hcl* (Metformin Hcl*), 500 MG ORAL TWICE A DAY, (Reported) Metoprolol Tartrate* (Metoprolol Tartrate*), 100 MG ORAL EVERY 12 HOURS, ( Reported) Metoprolol Tartrate* (Metoprolol Tartrate*), 50 MG ORAL EVERY 12 HOURS, ( Reported) Potassium Chloride (Potassium Chloride), 20 MEQ ORAL TWICE A DAY, (Reported) Ranitidine Hcl* (Zantac*), 150 MG ORAL TWICE A DAY, (Reported) Simvastatin (Zocor), 20 MG ORAL BEDTIME, (Reported) [jardiance], 10 MG DAILY, (Reported) Scheduled PRN Hydrocodone Bit/Acetaminophen 5-325* ([place] 5-325*), 1 TAB ORAL Q6H PRN for For Pain, (Reported) Miscellaneous Medications Apixaban (Eliquis), 5 MG PO, (Reported) Timolol Maleate/Pf (Timoptic 0.5% Ocudose Drop), 1 EACH OP, (Reported) Patient History Healthcare decision maker Resuscitation status Full Code Advanced Directive on File Review of Systems Constitutional: Reports: no symptoms Eye: Reports: no symptoms ENT: Reports: no symptoms Respiratory: Reports: no symptoms Cardiovascular: Reports: no symptoms Gastrointestinal: Reports: no symptoms Genitourinary: Reports: no symptoms Musculoskeletal: Reports: no symptoms Skin: Reports: no symptoms Psychiatric: Reports: no symptoms Neurological: Reports: no symptoms Endocrine: Reports: no symptoms Physical Exam General Appearance: no apparent distress, alert Lines, tubes and drains: central line HEENT: atraumatic Neck: non-tender, normal alignment, supple Respiratory/Chest: chest wall non-tender, lungs clear, normal breath sounds Cardiovascular/Chest: normal peripheral pulses, normal rate, regular rhythm Abdomen: normal bowel sounds, non tender, soft, no organomegaly Extremities: normal range of motion, non-tender, normal inspection, no calf tenderness 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, no motor/sensory deficits, alert, oriented x 3, responsive Last 24 Hour Vital Signs Date Time Temp Pulse Resp B/P (MAP) Pulse Ox O2 Delivery O2 Flow Rate FiO2 04/02/18 08:00 97.7 74 20 146/80 (102) 98 04/02/18 04:00 69 04/02/18 04:00 98.9 68 20 134/76 (95) 100 04/02/18 00:00 65 04/02/18 00:00 98.1 67 20 134/68 (90) 96 04/01/18 21:00 Room Air 04/01/18 20:00 70 04/01/18 20:00 97.9 71 20 126/60 (82) 98 04/01/18 16:00 64 04/01/18 15:20 Room Air 04/01/18 14:30 98.5 67 18 151/66 100 Room Air 04/01/18 13:45 98.4 68 15 138/61 100 Room Air 04/01/18 12:52 68 15 Room Air 04/01/18 12:52 98.4 68 15 138/61 100 Room Air 04/01/18 12:22 98.4 100 16 160/85 96 Room Air Intake and Output 04/01/18 04/02/18 18:59 06:59 Intake Total 400 ml 230.0 ml Output Total 0 ml 1300 ml Balance 400 ml -1070.0 ml Intake Oral 400 ml 120 ml IV Total 110.0 ml Output Urine Total 0 ml 1300 ml # Voids 2 Laboratory Tests Test 04/01/18 12:40 04/01/18 13:00 04/01/18 15:15 04/01/18 21:00 White Blood Count 11.8 K/UL (4.8-10.8) H Red Blood Count 4.90 M/UL (4.70-6.10) Hemoglobin 13.6 G/DL (14.2-18.0) L Hematocrit 41.4 % (42.0-52.0) L Mean Corpuscular Volume 84 FL (80-99) Mean Corpuscular Hemoglobin 27.8 PG (27.0-31.0) Mean Corpuscular Hemoglobin Concent 32.9 G/DL (32.0-36.0) Red Cell Distribution Width 12.2 % (11.6-14.8) Platelet Count 225 K/UL (150-450) Mean Platelet Volume 7.8 FL (6.5-10.1) Neutrophils (%) (Auto) 82.3 % (45.0-75.0) H Lymphocytes (%) (Auto) 6.9 % (20.0-45.0) L Monocytes (%) (Auto) 9.1 % (1.0-10.0) Eosinophils (%) (Auto) 0.8 % (0.0-3.0) Basophils (%) (Auto) 0.9 % (0.0-2.0) Erythrocyte Sedimentation Rate 52 MM/HR (0-20) H Prothrombin Time 11.1 SEC (9.30-11.50) Prothromb Time International Ratio 1.1 (0.9-1.1) Activated Partial Thromboplast Time 34 SEC (23-33) H Sodium Level 139 MMOL/L (136-145) Potassium Level 3.2 MMOL/L (3.5-5.1) L Chloride Level 100 MMOL/L (98-107) Carbon Dioxide Level 25 MMOL/L (21-32) Anion Gap 14 mmol/L (5-15) Blood Urea Nitrogen 28 mg/dL (7-18) H Creatinine 1.8 MG/DL (0.55-1.30) H Estimat Glomerular Filtration Rate mL/min (>60) Glucose Level 241 MG/DL (74-106) H Hemoglobin A1c 6.9 % (4.3-6.0) H Lactic Acid Level 2.70 mmol/L (0.4-2.0) H 1.90 mmol/L (0.66-2.22) 1.40 mmol/L (0.4-2.0) Calcium Level 9.2 MG/DL (8.5-10.1) Phosphorus Level 2.9 MG/DL (2.5-4.9) Magnesium Level 1.9 MG/DL (1.8-2.4) Total Bilirubin 0.5 MG/DL (0.2-1.0) Aspartate Amino Transf (AST/SGOT) 25 U/L (15-37) Alanine Aminotransferase (ALT/SGPT) 25 U/L (12-78) Alkaline Phosphatase 80 U/L (46-116) Total Creatine Kinase 358 U/L (26-308) H Creatine Kinase MB 0.9 NG/ML (0.0-3.6) Creatine Kinase MB Relative Index 0.2 Troponin I 0.046 ng/mL (0.000-0.056) Total Protein 8.3 G/DL (6.4-8.2) H Albumin 2.6 G/DL (3.4-5.0) L Globulin 5.7 g/dL Albumin/Globulin Ratio 0.5 (1.0-2.7) L Rapid Plasma Reagin Pending Urine Color Yellow Urine Appearance Clear Urine pH 6 (4.5-8.0) Urine Specific [place] 1.015 (1.005-1.035) Urine Protein 3+ (NEGATIVE) H Urine Glucose (UA) Negative (NEGATIVE) Urine Ketones Negative (NEGATIVE) Urine Blood 4+ (NEGATIVE) H Urine Nitrite Negative (NEGATIVE) Urine Bilirubin Negative (NEGATIVE) Urine Urobilinogen 1 MG/DL (0.0-1.0) H Urine Leukocyte Esterase Negative (NEGATIVE) Urine RBC 2-4 /HPF (0 - 0) H Urine WBC 0-2 /HPF (0 - 0) Urine Squamous Epithelial Cells Occasional /LPF Urine Bacteria Occasional /HPF (NONE) Test 04/02/18 07:40 White Blood Count 9.9 K/UL (4.8-10.8) Red Blood Count 4.35 M/UL (4.70-6.10) L Hemoglobin 12.5 G/DL (14.2-18.0) L Hematocrit 36.9 % (42.0-52.0) L Mean Corpuscular Volume 85 FL (80-99) Mean Corpuscular Hemoglobin 28.8 PG (27.0-31.0) Mean Corpuscular Hemoglobin Concent 34.0 G/DL (32.0-36.0) Red Cell Distribution Width 12.1 % (11.6-14.8) Platelet Count 227 K/UL (150-450) Mean Platelet Volume 6.9 FL (6.5-10.1) Neutrophils (%) (Auto) % (45.0-75.0) Lymphocytes (%) (Auto) % (20.0-45.0) Monocytes (%) (Auto) % (1.0-10.0) Eosinophils (%) (Auto) % (0.0-3.0) Basophils (%) (Auto) % (0.0-2.0) Neutrophils % (Manual) Pending Lymphocytes % (Manual) Pending Platelet Estimate Pending Platelet Morphology Pending Sodium Level 142 MMOL/L (136-145) Potassium Level 2.8 MMOL/L (3.5-5.1) L Chloride Level 102 MMOL/L (98-107) Carbon Dioxide Level 31 MMOL/L (21-32) Anion Gap 8 mmol/L (5-15) Blood Urea Nitrogen 25 mg/dL (7-18) H Creatinine 1.7 MG/DL (0.55-1.30) H Estimat Glomerular Filtration Rate mL/min (>60) Glucose Level 128 MG/DL (74-106) #H Lactic Acid Level 0.90 mmol/L (0.4-2.0) Calcium Level 8.8 MG/DL (8.5-10.1) Magnesium Level 1.8 MG/DL (1.8-2.4) Height (Feet): 5 Height (Inches): 8.00 Weight (Pounds): 260 Medications Current Medications Medications (Trade) Dose Ordered Sig/Vini Route PRN Reason Start Time Stop Time Status Last Admin Dose Admin Acetaminophen (Tylenol) 650 mg Q6H PRN ORAL Mild Pain/Temp > 100.5 04/01/18 17:15 05/01/18 17:14 Amiodarone HCl (Cordarone) 200 mg DAILY ORAL 04/02/18 09:00 05/02/18 08:59 04/02/18 09:06 Apixaban (Eliquis) 5 mg BID ORAL 04/02/18 09:00 05/02/18 08:59 04/02/18 09:05 Dextrose (Dextrose 50%) 25 ml Q30M PRN IV Hypoglycemia 04/01/18 13:45 05/01/18 13:44 Dextrose (Dextrose 50%) 50 ml Q30M PRN IV Hypoglycemia 04/01/18 13:45 05/01/18 13:44 Furosemide (Lasix) 40 mg EVERY 12 HOURS IV 04/01/18 21:00 05/01/18 20:59 04/02/18 09:08 Insulin Aspart (NovoLOG) BEFORE MEALS AND HS SUBQ 04/01/18 16:30 05/01/18 16:29 04/02/18 06:30 Morphine Sulfate (Morphine Sulfate) 1 mg Q6HR PRN IVP severe pain 04/01/18 17:15 04/08/18 17:14 Piperacillin Sod/ Tazobactam Sod 3.375 gm/Sodium Chloride 110 ml @ 27.5 mls/hr Q8H IVPB 04/01/18 16:00 04/08/18 15:59 04/02/18 09:05 Potassium Chloride 100 ml @ 100 mls/hr Q1HR IVPB 04/02/18 10:00 04/02/18 13:59 Potassium Chloride (K-Dur) 40 meq TWICE A DAY ORAL 04/01/18 21:00 04/04/18 09:00 04/02/18 09:08 Assessment/Plan Status: stable Assessment/Plan Assessment/Plan Cellulitis AFIB HTN DM CHF diastolic LE edema MARY Medication non compliance hx of CVA Plan: Cultures Permethrin for scabies Empiric Abx - ID consulted CHF - echo in 2017 with diastolic dysfunction - continue maintenance lasix -> transition to PO Echocardiogram to evaluate filling pressures Replete electrolytes Monitor renal function, nephrology consult Patient current in NSR, continue telemetry Continue anticoagulation with Eliquis Continue amiodarone to maintain normal rhythm No indication for cardiac cath or ischemia evaluation at this time Darshan Morris MD Apr 02, 2018 09:32
--- NOTE | 2018-04-02 10:12 | Diagnostic Imaging Report ---
Indication: Reason For Exam: SOB Technique: One view of the chest Comparison: 03/26/2017 Findings: Persistent elevation left hemidiaphragm. Patient is rotated to the right. The lungs and pleural spaces are clear. The heart size is normal Impression: No acute process
--- NOTE | 2018-04-02 10:30 | Infectious Diseases Prog Note ---
Assessment/Plan Assessment/Plan ASSESSMENT The patient is a 77-year-old male with Gdwp-bwpb-zck-mouth disease ( no oral rash) bilateral hands and feet rash,/ Arthralgia papular rash over the bilateral feet and hands Doubt scabies Doubt pneumonia. The patient does not have clinical significant cough CXR: right basilar atelectasis versus consolidatio Afebrile nl WBC Diabetes. CHF. Atrial fibrillation. Hyperlipidemia. Gout. P: DC Zosyn d# 1 Sp Elimite Monitor CBC. Monitor BMP contact isolation ok to DC from ID stand point Subjective Allergies: Coded Allergies: No Known Allergies (Unverified , 03/26/17) Subjective no new complain Objective Vital Signs Last 24 Hour Vital Signs Date Time Temp Pulse Resp B/P (MAP) Pulse Ox O2 Delivery O2 Flow Rate FiO2 04/02/18 08:00 97.7 74 20 146/80 (102) 98 04/02/18 04:00 69 04/02/18 04:00 98.9 68 20 134/76 (95) 100 04/02/18 00:00 65 04/02/18 00:00 98.1 67 20 134/68 (90) 96 04/01/18 21:00 Room Air 04/01/18 20:00 70 04/01/18 20:00 97.9 71 20 126/60 (82) 98 04/01/18 16:00 64 04/01/18 15:20 Room Air 04/01/18 14:30 98.5 67 18 151/66 100 Room Air 04/01/18 13:45 98.4 68 15 138/61 100 Room Air 04/01/18 12:52 68 15 Room Air 04/01/18 12:52 98.4 68 15 138/61 100 Room Air 04/01/18 12:22 98.4 100 16 160/85 96 Room Air Height (Feet): 5 Height (Inches): 8.00 Weight (Pounds): 260 HEENT: normocephalic Respiratory/Chest: lungs clear Cardiovascular: normal rate Abdomen: no organomegaly Laboratory Tests Test 04/01/18 12:40 04/01/18 13:00 04/01/18 15:15 04/01/18 21:00 White Blood Count 11.8 K/UL (4.8-10.8) H Red Blood Count 4.90 M/UL (4.70-6.10) Hemoglobin 13.6 G/DL (14.2-18.0) L Hematocrit 41.4 % (42.0-52.0) L Mean Corpuscular Volume 84 FL (80-99) Mean Corpuscular Hemoglobin 27.8 PG (27.0-31.0) Mean Corpuscular Hemoglobin Concent 32.9 G/DL (32.0-36.0) Red Cell Distribution Width 12.2 % (11.6-14.8) Platelet Count 225 K/UL (150-450) Mean Platelet Volume 7.8 FL (6.5-10.1) Neutrophils (%) (Auto) 82.3 % (45.0-75.0) H Lymphocytes (%) (Auto) 6.9 % (20.0-45.0) L Monocytes (%) (Auto) 9.1 % (1.0-10.0) Eosinophils (%) (Auto) 0.8 % (0.0-3.0) Basophils (%) (Auto) 0.9 % (0.0-2.0) Erythrocyte Sedimentation Rate 52 MM/HR (0-20) H Prothrombin Time 11.1 SEC (9.30-11.50) Prothromb Time International Ratio 1.1 (0.9-1.1) Activated Partial Thromboplast Time 34 SEC (23-33) H Sodium Level 139 MMOL/L (136-145) Potassium Level 3.2 MMOL/L (3.5-5.1) L Chloride Level 100 MMOL/L (98-107) Carbon Dioxide Level 25 MMOL/L (21-32) Anion Gap 14 mmol/L (5-15) Blood Urea Nitrogen 28 mg/dL (7-18) H Creatinine 1.8 MG/DL (0.55-1.30) H Estimat Glomerular Filtration Rate mL/min (>60) Glucose Level 241 MG/DL (74-106) H Hemoglobin A1c 6.9 % (4.3-6.0) H Lactic Acid Level 2.70 mmol/L (0.4-2.0) H 1.90 mmol/L (0.66-2.22) 1.40 mmol/L (0.4-2.0) Calcium Level 9.2 MG/DL (8.5-10.1) Phosphorus Level 2.9 MG/DL (2.5-4.9) Magnesium Level 1.9 MG/DL (1.8-2.4) Total Bilirubin 0.5 MG/DL (0.2-1.0) Aspartate Amino Transf (AST/SGOT) 25 U/L (15-37) Alanine Aminotransferase (ALT/SGPT) 25 U/L (12-78) Alkaline Phosphatase 80 U/L (46-116) Total Creatine Kinase 358 U/L (26-308) H Creatine Kinase MB 0.9 NG/ML (0.0-3.6) Creatine Kinase MB Relative Index 0.2 Troponin I 0.046 ng/mL (0.000-0.056) Total Protein 8.3 G/DL (6.4-8.2) H Albumin 2.6 G/DL (3.4-5.0) L Globulin 5.7 g/dL Albumin/Globulin Ratio 0.5 (1.0-2.7) L Rapid Plasma Reagin Pending Urine Color Yellow Urine Appearance Clear Urine pH 6 (4.5-8.0) Urine Specific [place] 1.015 (1.005-1.035) Urine Protein 3+ (NEGATIVE) H Urine Glucose (UA) Negative (NEGATIVE) Urine Ketones Negative (NEGATIVE) Urine Blood 4+ (NEGATIVE) H Urine Nitrite Negative (NEGATIVE) Urine Bilirubin Negative (NEGATIVE) Urine Urobilinogen 1 MG/DL (0.0-1.0) H Urine Leukocyte Esterase Negative (NEGATIVE) Urine RBC 2-4 /HPF (0 - 0) H Urine WBC 0-2 /HPF (0 - 0) Urine Squamous Epithelial Cells Occasional /LPF Urine Bacteria Occasional /HPF (NONE) Test 04/02/18 07:40 White Blood Count 9.9 K/UL (4.8-10.8) Red Blood Count 4.35 M/UL (4.70-6.10) L Hemoglobin 12.5 G/DL (14.2-18.0) L Hematocrit 36.9 % (42.0-52.0) L Mean Corpuscular Volume 85 FL (80-99) Mean Corpuscular Hemoglobin 28.8 PG (27.0-31.0) Mean Corpuscular Hemoglobin Concent 34.0 G/DL (32.0-36.0) Red Cell Distribution Width 12.1 % (11.6-14.8) Platelet Count 227 K/UL (150-450) Mean Platelet Volume 6.9 FL (6.5-10.1) Neutrophils (%) (Auto) % (45.0-75.0) Lymphocytes (%) (Auto) % (20.0-45.0) Monocytes (%) (Auto) % (1.0-10.0) Eosinophils (%) (Auto) % (0.0-3.0) Basophils (%) (Auto) % (0.0-2.0) Differential Total Cells Counted 100 Neutrophils % (Manual) 58 % (45-75) Lymphocytes % (Manual) 25 % (20-45) Monocytes % (Manual) 15 % (1-10) H Eosinophils % (Manual) 2 % (0-3) Basophils % (Manual) 0 % (0-2) Band Neutrophils 0 % (0-8) Platelet Estimate Adequate Platelet Morphology Normal Sodium Level 142 MMOL/L (136-145) Potassium Level 2.8 MMOL/L (3.5-5.1) L Chloride Level 102 MMOL/L (98-107) Carbon Dioxide Level 31 MMOL/L (21-32) Anion Gap 8 mmol/L (5-15) Blood Urea Nitrogen 25 mg/dL (7-18) H Creatinine 1.7 MG/DL (0.55-1.30) H Estimat Glomerular Filtration Rate mL/min (>60) Glucose Level 128 MG/DL (74-106) #H Lactic Acid Level 0.90 mmol/L (0.4-2.0) Calcium Level 8.8 MG/DL (8.5-10.1) Magnesium Level 1.8 MG/DL (1.8-2.4) Current Medications Medications (Trade) Dose Ordered Sig/Vini Route PRN Reason Start Time Stop Time Status Last Admin Dose Admin Acetaminophen (Tylenol) 650 mg Q6H PRN ORAL Mild Pain/Temp > 100.5 04/01/18 17:15 05/01/18 17:14 Amiodarone HCl (Cordarone) 200 mg DAILY ORAL 04/02/18 09:00 05/02/18 08:59 04/02/18 09:06 Apixaban (Eliquis) 5 mg BID ORAL 04/02/18 09:00 05/02/18 08:59 04/02/18 09:05 Dextrose (Dextrose 50%) 25 ml Q30M PRN IV Hypoglycemia 04/01/18 13:45 05/01/18 13:44 Dextrose (Dextrose 50%) 50 ml Q30M PRN IV Hypoglycemia 04/01/18 13:45 05/01/18 13:44 Furosemide (Lasix) 40 mg EVERY 12 HOURS IV 04/01/18 21:00 05/01/18 20:59 04/02/18 09:08 Insulin Aspart (NovoLOG) BEFORE MEALS AND HS SUBQ 04/01/18 16:30 05/01/18 16:29 04/02/18 06:30 Morphine Sulfate (Morphine Sulfate) 1 mg Q6HR PRN IVP severe pain 04/01/18 17:15 04/08/18 17:14 Piperacillin Sod/ Tazobactam Sod 3.375 gm/Sodium Chloride 110 ml @ 27.5 mls/hr Q8H IVPB 04/01/18 16:00 04/08/18 15:59 04/02/18 09:05 Potassium Chloride 100 ml @ 100 mls/hr Q1HR IVPB 04/02/18 10:00 04/02/18 13:59 Potassium Chloride (K-Dur) 40 meq TWICE A DAY ORAL 04/01/18 21:00 04/04/18 09:00 04/02/18 09:08 Jasen Meadows MD Apr 02, 2018 10:30
--- NOTE | 2018-04-02 10:58 | General Progress Note ---
Assessment/Plan Problem List: (1) Cellulitis Assessment & Plan: cellulitis of b/l hands and feet bcx sent x 2 rpr sent by ed along with esr ID consulted concerns for scabies.. permethrin given overnight trav felipe monitor ID consult pending ICD Codes: L03.90 - Cellulitis, unspecified SNOMED: 203262335 Qualifiers: (2) Acute hypokalemia Assessment & Plan: K 2.8 replenish aggressively check mg ICD Codes: E87.6 - Hypokalemia SNOMED: 01690683 (3) CHF (congestive heart failure) Assessment & Plan: stable cont home meds lasix unsure of home meds, cards consult to eval for optimal medical management ICD Codes: I50.9 - Heart failure, unspecified SNOMED: 31467897 Qualifiers: Qualified Codes: I50.22 - Chronic systolic (congestive) heart failure (4) Noncompliance Assessment & Plan: educated on compliance for over 15 mins patient states understanding ICD Codes: Z91.19 - Patient's noncompliance with other medical treatment and regimen SNOMED: 9885739 (5) MARY (acute kidney injury) Assessment & Plan: unsure of baseline 1.6 monitor closely ICD Codes: N17.9 - Acute kidney failure, unspecified SNOMED: 10626012 (6) Atrial fibrillation with RVR Assessment & Plan: rate controlled eliquis home amio ICD Codes: I48.91 - Unspecified atrial fibrillation SNOMED: 050654529233079 (7) CVA (cerebral vascular accident) Assessment & Plan: chronic resume home meds ICD Codes: I63.9 - Cerebral infarction, unspecified SNOMED: 151794916 (8) Diabetes Assessment & Plan: iss accuchecks check hgba1c ICD Codes: E11.9 - Type 2 diabetes mellitus without complications SNOMED: 86913087 Qualifiers: Qualified Codes: E11.9 - Type 2 diabetes mellitus without complications; 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 Assessment/Plan scd: sriramid, scd diet: ccd5/cardiac Subjective Date patient seen: Apr 02, 2018 Time patient seen: 07:43 Constitutional: Denies: no symptoms, chills, diaphoresis, fever, malaise, weakness, other HEENT: Denies: no symptoms, eye pain, blurred vision, tearing, double vision, ear pain, ear discharge, nose pain, nose congestion, throat pain, throat swelling, mouth pain, mouth swelling, other Cardiovascular: Denies: no symptoms, chest pain, edema, irregular heart rate, lightheadedness, palpitations, syncope, other Respiratory: Denies: no symptoms, cough, orthopnea, shortness of breath, SOB with excertion, SOB at rest, sputum, stridor, wheezing, other Gastrointestinal/Abdominal: Denies: no symptoms, abdomen distended, abdominal pain, black stools, tarry stools, blood in stool, constipated, diarrhea, difficulty swallowing, nausea, poor appetite, poor fluid intake, rectal bleeding , vomiting, other Genitourinary: Denies: no symptoms, burning, discharge, frequency, flank pain, hematuria, incontinence, pain, urgency, other Neurologic/Psychiatric: Denies: no symptoms, anxiety, depressed, emotional problems, headache, numbness, paresthesia, pre-existing deficit, seizure, tingling, tremors, weakness, other Endocrine: Denies: no symptoms, excessive sweating, flushing, intolerance to cold, intolerance to heat, increased hunger, increased thirst, increased urine, unexplained weight gain, unexplained weight loss, other Hematologic/Lymphatic: Denies: no symptoms, anemia, easy bleeding, easy bruising, other Allergies: Coded Allergies: No Known Allergies (Unverified , 03/26/17) Subjective f/u cellulitis, hypokalemia, chf denies any complaints overnight no acute events overnight pending ID and cards f/u stable Objective Last 24 Hour Vital Signs Date Time Temp Pulse Resp B/P (MAP) Pulse Ox O2 Delivery O2 Flow Rate FiO2 04/02/18 08:00 97.7 74 20 146/80 (102) 98 04/02/18 04:00 69 04/02/18 04:00 98.9 68 20 134/76 (95) 100 04/02/18 00:00 65 04/02/18 00:00 98.1 67 20 134/68 (90) 96 04/01/18 21:00 Room Air 04/01/18 20:00 70 04/01/18 20:00 97.9 71 20 126/60 (82) 98 04/01/18 16:00 64 04/01/18 15:20 Room Air 04/01/18 14:30 98.5 67 18 151/66 100 Room Air 04/01/18 13:45 98.4 68 15 138/61 100 Room Air 04/01/18 12:52 68 15 Room Air 04/01/18 12:52 98.4 68 15 138/61 100 Room Air 04/01/18 12:22 98.4 100 16 160/85 96 Room Air Intake and Output 04/01/18 04/02/18 19:00 07:00 Intake Total 400 ml 230.0 ml Output Total 0 ml 1300 ml Balance 400 ml -1070.0 ml Intake Oral 400 ml 120 ml IV Total 110.0 ml Output Urine Total 0 ml 1300 ml # Voids 2 Laboratory Tests 04/01/18 12:40: White Blood Count 11.8H, Red Blood Count 4.90, Hemoglobin 13.6L, Hematocrit 41.4L, Mean Corpuscular Volume 84, Mean Corpuscular Hemoglobin 27.8, Mean Corpuscular Hemoglobin Concent 32.9, Red Cell Distribution Width 12.2, Platelet Count 225, Mean Platelet Volume 7.8, Neutrophils (%) (Auto) 82.3H, Lymphocytes ( %) (Auto) 6.9L, Monocytes (%) (Auto) 9.1, Eosinophils (%) (Auto) 0.8, Basophils (%) (Auto) 0.9, Erythrocyte Sedimentation Rate 52H, Prothrombin Time 11.1, Prothromb Time International Ratio 1.1, Activated Partial Thromboplast Time 34H , Sodium Level 139, Potassium Level 3.2L, Chloride Level 100, Carbon Dioxide Level 25, Anion Gap 14, Blood Urea Nitrogen 28H, Creatinine 1.8H, Estimat Glomerular Filtration Rate , Glucose Level 241H, Hemoglobin A1c 6.9H, Lactic Acid Level 2.70H, Calcium Level 9.2, Phosphorus Level 2.9, Magnesium Level 1.9, Total Bilirubin 0.5, Aspartate Amino Transf (AST/SGOT) 25, Alanine Aminotransferase (ALT/SGPT) 25, Alkaline Phosphatase 80, Total Creatine Kinase 358H, Creatine Kinase MB 0.9, Creatine Kinase MB Relative Index 0.2, Troponin I 0.046, Total Protein 8.3H, Albumin 2.6L, Globulin 5.7, Albumin/Globulin Ratio 0.5L, Rapid Plasma Reagin [Pending] 04/01/18 13:00: Urine Color Yellow, Urine Appearance Clear, Urine pH 6, Urine Specific Curtis 1.015, Urine Protein 3+H, Urine Glucose (UA) Negative, Urine Ketones Negative, Urine Blood 4+H, Urine Nitrite Negative, Urine Bilirubin Negative, Urine Urobilinogen 1H, Urine Leukocyte Esterase Negative, Urine RBC 2-4H, Urine WBC 0- 2, Urine Squamous Epithelial Cells Occasional, Urine Bacteria Occasional 04/01/18 15:15: Lactic Acid Level 1.90 04/01/18 21:00: Lactic Acid Level 1.40 04/02/18 07:40: White Blood Count 9.9, Red Blood Count 4.35L, Hemoglobin 12.5L, Hematocrit 36.9L , Mean Corpuscular Volume 85, Mean Corpuscular Hemoglobin 28.8, Mean Corpuscular Hemoglobin Concent 34.0, Red Cell Distribution Width 12.1, Platelet Count 227, Mean Platelet Volume 6.9, Neutrophils (%) (Auto) , Lymphocytes (%) ( Auto) , Monocytes (%) (Auto) , Eosinophils (%) (Auto) , Basophils (%) (Auto) , Differential Total Cells Counted 100, Neutrophils % (Manual) 58, Lymphocytes % ( Manual) 25, Monocytes % (Manual) 15H, Eosinophils % (Manual) 2, Basophils % ( Manual) 0, Band Neutrophils 0, Platelet Estimate Adequate, Platelet Morphology Normal, Sodium Level 142, Potassium Level 2.8L, Chloride Level 102, Carbon Dioxide Level 31, Anion Gap 8, Blood Urea Nitrogen 25H, Creatinine 1.7H, Estimat Glomerular Filtration Rate , Glucose Level 128#H, Lactic Acid Level 0.90 , Calcium Level 8.8, Magnesium Level 1.8 Height (Feet): 5 Height (Inches): 8.00 Weight (Pounds): 260 General Appearance: WD/WN, no apparent distress, alert EENT: PERRL/EOMI, normal ENT inspection, TMs normal, pharynx normal Neck: non-tender, normal alignment, supple, normal inspection Cardiovascular: normal peripheral pulses, normal rate, regular rhythm Respiratory/Chest: chest wall non-tender, lungs clear, normal breath sounds, no respiratory distress, no accessory muscle use Abdomen: normal bowel sounds, non tender, soft Extremities: normal range of motion, non-tender, normal inspection Edema: moderate edema, pitting 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
[2018-04-02 12:00] VITALS: BP 132/69
[2018-04-02 15:29] VITALS: BP 134/75
[2018-04-02 20:00] VITALS: BP 125/84
[2018-04-02 20:08] LABS: ALANINE AMINOTRANSFERASE 24 U/L (12-78); ALBUMIN 2.2 G/DL (3.4-5.0); ALBUMIN/GLOBULIN RATIO 0.5 (1.0-2.7); ALKALINE PHOSPHATASE 71 U/L (46-116); ANION GAP 8 mmol/L (5-15); ASPARTATE AMINO TRANSFERASE 24 U/L (15-37); BILIRUBIN,TOTAL 0.3 MG/DL (0.2-1.0); BLOOD UREA NITROGEN 23 mg/dL (7-18); CALCIUM 8.2 MG/DL (8.5-10.1); CARBON DIOXIDE 29 MMOL/L (21-32); CHLORIDE 103 MMOL/L (98-107); CREATININE 1.5 MG/DL (0.55-1.30); POTASSIUM 3.9 MMOL/L (3.5-5.1); SODIUM 140 MMOL/L (136-145)
[2018-04-02] MEDS: Latanoprost 0.005% Opth 2.5ml Soln LEFT EYE SCH (21:26)
[2018-04-03] VITALS: BP 136/86
[2018-04-03 04:00] VITALS: BP 141/88
[2018-04-03] MEDS: NovoLOG Insulin Flexpen SUBQ SCH ×4 (05:54→20:55)
[2018-04-03 08:00] VITALS: BP 146/81
[2018-04-03] MEDS ORDERED: Albuterol/Ipratropium 3ml neb HHN PRN (08:30)
[2018-04-03] MEDS ORDERED: Acetylcysteine 20% Soln 4ml HHN PRN (08:30)
--- NOTE | 2018-04-03 08:40 | Cardiology Report ---
APPROVED REPORT EXAM: Two-dimensional and M-mode echocardiogram with Doppler and color Doppler. INDICATION LV FUNCTION M-Mode DIMENSIONS IVSd1.3 (0.7-1.1cm)Left Atrium (MM)4.0 (1.6-4.0cm) LVDd3.3 (3.5-5.6cm)Aortic Root4.1 (2.0-3.7cm) PWd0.8 (0.7-1.1cm)Aortic Cusp Exc.2.0 (1.5-2.0cm) IVSs1.5 cm LVDs2.2 (2.5-4.0cm) PWs1.0 cm Technically difficult study due to poor acoustical windows. Normal left ventricular chamber size, systolic function and wall motion to extent visualized. Left ventricular ejection fraction estimated to be 55-60 %. Study quality precludes accurate assessment of regional wall motion. No evidence of left ventricular hypertrophy. No evidence of pericardial effusion. Mild left atrial enlargment . Right cardiac chamber sizes are within normal limits. Focal aortic valve sclerosis with adequate cusp excursion. Thickened mitral valve leaflets with normal excursion. Mitral annulus and aortic root calcification. Normal tricuspid valve structure. IVC dilated at 2.4 cm and non-collapsing with respiration suggestive of increased RA pressure. A color flow and spectral Doppler study was performed and revealed: No aortic insufficiency. Trace tricuspid regurgitaion . Mitral inflow indicate normal left ventricular diastolic function grade (I). Trace tricuspid regurgitation. Tricuspid systolic velocities suggests peak right ventricular systolic pressure of 13 mmHg.
--- NOTE | 2018-04-03 08:50 | Cardiology Report ---
APPROVED REPORT EKG Measurement Heart [id number] Normal sinus rhythm Right bundle branch block Left anterior fascicular block Bifascicular block Left ventricular hypertrophy with repolarization abnormality Cannot rule out Septal infarct, age undetermined Abnormal ECG
[2018-04-03] MEDS: Amiodarone 200mg tab ORAL SCH (09:21)
[2018-04-03] MEDS: Eliquis 2.5mg tablet ORAL SCH ×2 (09:21→17:51)
--- NOTE | 2018-04-03 09:34 | Cardiology Progress Note ---
Assessment/Plan Status: stable Assessment/Plan Assessment/Plan Cellulitis AFIB HTN DM CHF diastolic LE edema MARY Medication non compliance hx of CVA Plan: Cultures Permethrin for scabies Empiric Abx - ID consulted CHF - echo in 2017 with diastolic dysfunction - continue maintenance lasix -> transition to PO Echocardiogram to evaluate filling pressures -> normal LV function, no changes from 2017 Replete electrolytes Monitor renal function, nephrology consult Patient current in NSR, continue telemetry Continue anticoagulation with Eliquis Continue amiodarone to maintain normal rhythm No indication for cardiac cath or ischemia evaluation at this time ok to discharge Subjective Cardiovascular: Reports: no symptoms Respiratory: Reports: no symptoms Gastrointestinal/Abdominal: Reports: no symptoms Genitourinary: Reports: no symptoms Subjective No acute events, no distress, no complaints, he wants to change his diet/food not good, afebrile, vitals stable Objective Last 24 Hour Vital Signs Date Time Temp Pulse Resp B/P (MAP) Pulse Ox O2 Delivery O2 Flow Rate FiO2 04/03/18 04:00 98.8 92 20 141/88 (105) 95 04/03/18 04:00 73 04/03/18 00:00 98.4 70 20 136/86 (103) 95 04/03/18 00:00 69 04/02/18 21:00 Room Air 04/02/18 20:00 98.4 71 20 125/84 (98) 99 04/02/18 20:00 71 04/02/18 16:00 72 04/02/18 15:29 97.9 75 20 134/75 (94) 98 04/02/18 12:00 68 04/02/18 12:00 96.4 67 20 132/69 (90) 96 General Appearance: no apparent distress EENT: PERRL/EOMI, normal ENT inspection Neck: non-tender, normal alignment, supple, normal inspection, no JVD Rhythm: NSR Cardiovascular: normal peripheral pulses, normal rate, regular rhythm Respiratory/Chest: chest wall non-tender, lungs clear, normal breath sounds Abdomen: normal bowel sounds, non tender, soft Extremities: normal range of motion, non-tender, normal inspection 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 II-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 grossly normal, no motor/sensory deficits Intake and Output 04/02/18 04/03/18 18:59 06:59 Intake Total 975.0 ml Output Total 575 ml 2200 ml Balance 400.0 ml -2200 ml Intake Oral 520 ml IV Total 455.0 ml Output Urine Total 575 ml 2200 ml # Voids 1 6 Laboratory Tests Test 04/02/18 19:30 Sodium Level 140 MMOL/L (136-145) Potassium Level 3.9 MMOL/L (3.5-5.1) Chloride Level 103 MMOL/L (98-107) Carbon Dioxide Level 29 MMOL/L (21-32) Anion Gap 8 mmol/L (5-15) Blood Urea Nitrogen 23 mg/dL (7-18) H Creatinine 1.5 MG/DL (0.55-1.30) H Estimat Glomerular Filtration Rate mL/min (>60) Glucose Level 164 MG/DL (74-106) H Calcium Level 8.2 MG/DL (8.5-10.1) L Total Bilirubin 0.3 MG/DL (0.2-1.0) Aspartate Amino Transf (AST/SGOT) 24 U/L (15-37) Alanine Aminotransferase (ALT/SGPT) 24 U/L (12-78) Alkaline Phosphatase 71 U/L (46-116) Total Protein 6.7 G/DL (6.4-8.2) Albumin 2.2 G/DL (3.4-5.0) L Globulin 4.5 g/dL Albumin/Globulin Ratio 0.5 (1.0-2.7) L Microbiology Date/Time Source Procedure Growth Status 04/01/18 21:15 Blood Blood Culture - Preliminary NO GROWTH AFTER 24 HOURS Resulted 04/01/18 21:00 Blood Blood Culture - Preliminary NO GROWTH AFTER 24 HOURS Resulted 04/01/18 12:40 Blood Blood Culture - Preliminary NO GROWTH AFTER 24 HOURS Resulted 04/01/18 12:40 Blood Blood Culture - Preliminary NO GROWTH AFTER 24 HOURS Resulted Darshan Morris MD Apr 03, 2018 09:34
[2018-04-03 12:00] VITALS: BP 156/75
--- NOTE | 2018-04-03 14:51 | General Progress Note ---
Assessment/Plan Problem List: (1) Physical debility Assessment & Plan: seems to have major physical debility due to Lower extremity edema was unable to work appropriately with PT yesterday PT to continue to evaluate patient needs help with SW and CM to plan appropriate dispo.. concerns for homelessness as well ICD Codes: R53.81 - Other malaise SNOMED: 33288368 (2) Cellulitis Assessment & Plan: cellulitis of b/l hands and feet due to Xvkg-rwkx-pyo-mouth disease, per ID, no need for abx. bcx x 2 ngtd s/p permethrin for scabies concerns ICD Codes: L03.90 - Cellulitis, unspecified SNOMED: 052993411 Qualifiers: (3) Acute hypokalemia Assessment & Plan: resolved monitor daily bmp's ICD Codes: E87.6 - Hypokalemia SNOMED: 65849096 (4) CHF (congestive heart failure) Assessment & Plan: stable cont home meds amio lasix eliquis appreciate cards recs ICD Codes: I50.9 - Heart failure, unspecified SNOMED: 83109893 Qualifiers: Qualified Codes: I50.22 - Chronic systolic (congestive) heart failure (5) Noncompliance Assessment & Plan: educated on compliance for over 15 mins patient states understanding ICD Codes: Z91.19 - Patient's noncompliance with other medical treatment and regimen SNOMED: 3147559 (6) MARY (acute kidney injury) Assessment & Plan: unsure of baseline 1.6 monitor closely ICD Codes: N17.9 - Acute kidney failure, unspecified SNOMED: 77473690 (7) Atrial fibrillation with RVR Assessment & Plan: rate controlled eliquis home amio ICD Codes: I48.91 - Unspecified atrial fibrillation SNOMED: 591877688306215 (8) CVA (cerebral vascular accident) Assessment & Plan: chronic resume home meds ICD Codes: I63.9 - Cerebral infarction, unspecified SNOMED: 488017168 Qualifiers: Qualified Codes: I63.9 - Cerebral infarction, unspecified (9) Diabetes Assessment & Plan: iss accuchecks check hgba1c ICD Codes: E11.9 - Type 2 diabetes mellitus without complications SNOMED: 90966080 Qualifiers: Qualified Codes: E11.9 - Type 2 diabetes mellitus without complications; Z79.4 - half-way (current) use of insulin Status: stable, progressing Assessment/Plan scd: eliquid, scd diet: ccd5/cardiac Subjective Allergies: Coded Allergies: No Known Allergies (Unverified , 03/26/17) Subjective f/u cellulitis, hypokalemia, chf denies any complaints overnight no acute events overnight abx dc'd per ID recs as this is hand foot mouth dz stable pending THerapy eval for appropriate dispo sw also consulted as there's concerns for homelessness. 12 point ros negative except for the above Objective Last 24 Hour Vital Signs Date Time Temp Pulse Resp B/P (MAP) Pulse Ox O2 Delivery O2 Flow Rate FiO2 04/03/18 12:00 98.7 76 20 156/75 (102) 97 04/03/18 12:00 81 04/03/18 09:00 Room Air 04/03/18 08:00 84 04/03/18 08:00 98.9 84 18 146/81 (102) 98 04/03/18 04:00 98.8 92 20 141/88 (105) 95 04/03/18 04:00 73 04/03/18 00:00 98.4 70 20 136/86 (103) 95 04/03/18 00:00 69 04/02/18 21:00 Room Air 04/02/18 20:00 98.4 71 20 125/84 (98) 99 04/02/18 20:00 71 04/02/18 16:00 72 04/02/18 15:29 97.9 75 20 134/75 (94) 98 Intake and Output 04/02/18 04/03/18 19:00 07:00 Intake Total 975.0 ml Output Total 575 ml 2200 ml Balance 400.0 ml -2200 ml Intake Oral 520 ml IV Total 455.0 ml Output Urine Total 575 ml 2200 ml # Voids 1 6 Laboratory Tests 04/02/18 19:30: Sodium Level 140, Potassium Level 3.9, Chloride Level 103, Carbon Dioxide Level 29, Anion Gap 8, Blood Urea Nitrogen 23H, Creatinine 1.5H, Estimat Glomerular Filtration Rate , Glucose Level 164H, Calcium Level 8.2L, Total Bilirubin 0.3, Aspartate Amino Transf (AST/SGOT) 24, Alanine Aminotransferase (ALT/SGPT) 24, Alkaline Phosphatase 71, Total Protein 6.7, Albumin 2.2L, Globulin 4.5, Albumin/ Globulin Ratio 0.5L Height (Feet): 5 Height (Inches): 8.00 Weight (Pounds): 255 General Appearance: WD/WN, no apparent distress, alert EENT: PERRL/EOMI, normal ENT inspection, TMs normal, pharynx normal Neck: non-tender, normal alignment, supple, normal inspection Cardiovascular: normal peripheral pulses, normal rate, regular rhythm Respiratory/Chest: chest wall non-tender, lungs clear, normal breath sounds, no respiratory distress, no accessory muscle use Abdomen: normal bowel sounds, non tender, soft, no organomegaly, no mass Extremities: normal range of motion, non-tender, normal inspection, no calf tenderness 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
[2018-04-03 16:00] VITALS: BP 146/83
[2018-04-03 16:03] LABS: ANION GAP 8 mmol/L (5-15); BLOOD UREA NITROGEN 24 mg/dL (7-18); CARBON DIOXIDE 30 MMOL/L (21-32); CHLORIDE 102 MMOL/L (98-107); CREATININE 1.6 MG/DL (0.55-1.30); POTASSIUM 3.9 MMOL/L (3.5-5.1); SODIUM 140 MMOL/L (136-145)
--- NOTE | 2018-04-03 16:09 | Consultation ---
Consult Note Assessment/Plan A/ 1) Onychomycosis 2) DM 3) Chronic edema 2/2 CHF 4) Difficulty walking P/ was at bedside. Educated on his condition and treatment. motivated to start outpatient follow ups for Podiatry care. Will follow as out patient Thank you for the courtesy of this consultation. Michel Quezada DPM Apr 03, 2018 16:09
--- NOTE | 2018-04-03 17:53 | Infectious Diseases Prog Note ---
Assessment/Plan Assessment/Plan ASSESSMENT The patient is a 77-year-old male with Moip-euhl-wbs-mouth disease ( no oral rash) bilateral hands and feet rash,/ Arthralgia papular rash over the bilateral feet and hands Doubt scabies Doubt pneumonia. The patient does not have clinical significant cough CXR: right basilar atelectasis versus consolidatio Afebrile nl WBC RPR : Neg Diabetes. CHF Left ventricular ejection fraction estimated to be 55-60 % Atrial fibrillation. Hyperlipidemia. Gout. P: Monitor pt off of AB RX 04/03 SP Zosyn d# 1 Sp Elimite x 1 Monitor CBC. Monitor BMP contact isolation ( Enterovirus) ok to DC from ID stand point Subjective Constitutional: Denies: no symptoms, fever, chills, fatigue, anorexia, drenching sweats, other Allergies: Coded Allergies: No Known Allergies (Unverified , 03/26/17) Subjective no new complain Objective Vital Signs Last 24 Hour Vital Signs Date Time Temp Pulse Resp B/P (MAP) Pulse Ox O2 Delivery O2 Flow Rate FiO2 04/03/18 12:00 98.7 76 20 156/75 (102) 97 04/03/18 12:00 81 04/03/18 09:00 Room Air 04/03/18 08:00 84 04/03/18 08:00 98.9 84 18 146/81 (102) 98 04/03/18 04:00 98.8 92 20 141/88 (105) 95 04/03/18 04:00 73 04/03/18 00:00 98.4 70 20 136/86 (103) 95 04/03/18 00:00 69 04/02/18 21:00 Room Air 04/02/18 20:00 98.4 71 20 125/84 (98) 99 04/02/18 20:00 71 Height (Feet): 5 Height (Inches): 8.00 Weight (Pounds): 255 HEENT: anicteric Respiratory/Chest: normal breath sounds Cardiovascular: regular rhythm Abdomen: soft, non tender Microbiology Date/Time Source Procedure Growth Status 04/01/18 21:15 Blood Blood Culture - Preliminary NO GROWTH AFTER 24 HOURS Resulted 04/01/18 21:00 Blood Blood Culture - Preliminary NO GROWTH AFTER 24 HOURS Resulted 04/01/18 12:40 Blood Blood Culture - Preliminary NO GROWTH AFTER 24 HOURS Resulted 04/01/18 12:40 Blood Blood Culture - Preliminary NO GROWTH AFTER 24 HOURS Resulted Laboratory Tests Test 04/02/18 19:30 04/03/18 15:30 Sodium Level 140 MMOL/L (136-145) 140 MMOL/L (136-145) Potassium Level 3.9 MMOL/L (3.5-5.1) 3.9 MMOL/L (3.5-5.1) Chloride Level 103 MMOL/L (98-107) 102 MMOL/L (98-107) Carbon Dioxide Level 29 MMOL/L (21-32) 30 MMOL/L (21-32) Anion Gap 8 mmol/L (5-15) 8 mmol/L (5-15) Blood Urea Nitrogen 23 mg/dL (7-18) H 24 mg/dL (7-18) H Creatinine 1.5 MG/DL (0.55-1.30) H 1.6 MG/DL (0.55-1.30) H Estimat Glomerular Filtration Rate mL/min (>60) mL/min (>60) Glucose Level 164 MG/DL (74-106) H 136 MG/DL (74-106) H Calcium Level 8.2 MG/DL (8.5-10.1) L 9.0 MG/DL (8.5-10.1) Total Bilirubin 0.3 MG/DL (0.2-1.0) Aspartate Amino Transf (AST/SGOT) 24 U/L (15-37) Alanine Aminotransferase (ALT/SGPT) 24 U/L (12-78) Alkaline Phosphatase 71 U/L (46-116) Total Protein 6.7 G/DL (6.4-8.2) Albumin 2.2 G/DL (3.4-5.0) L Globulin 4.5 g/dL Albumin/Globulin Ratio 0.5 (1.0-2.7) L Current Medications Medications (Trade) Dose Ordered Sig/Vini Route PRN Reason Start Time Stop Time Status Last Admin Dose Admin Acetaminophen (Tylenol) 650 mg Q6H PRN ORAL Mild Pain/Temp > 100.5 04/01/18 17:15 05/01/18 17:14 Acetylcysteine (Mucomyst) 200 mg Q6HRT PRN HHN For Cough 04/03/18 08:30 05/03/18 08:29 Albuterol/ Ipratropium (Albuterol/ Ipratropium) 3 ml Q4HRT PRN HHN Shortness of Breath 04/03/18 08:30 04/08/18 08:29 Amiodarone HCl (Cordarone) 200 mg DAILY ORAL 04/02/18 09:00 05/02/18 08:59 04/03/18 09:21 Apixaban (Eliquis) 5 mg BID ORAL 04/02/18 09:00 05/02/18 08:59 04/03/18 09:21 Dextrose (Dextrose 50%) 25 ml Q30M PRN IV Hypoglycemia 04/01/18 13:45 05/01/18 13:44 Dextrose (Dextrose 50%) 50 ml Q30M PRN IV Hypoglycemia 04/01/18 13:45 05/01/18 13:44 Furosemide (Lasix) 40 mg EVERY 12 HOURS IV 04/01/18 21:00 05/01/18 20:59 04/03/18 09:20 Insulin Aspart (NovoLOG) BEFORE MEALS AND HS SUBQ 04/01/18 16:30 05/01/18 16:29 04/03/18 16:47 Latanoprost (Xalatan) 1 drop BEDTIME LEFT EYE 04/02/18 21:00 05/02/18 20:59 04/02/18 21:26 Morphine Sulfate (Morphine Sulfate) 1 mg Q6HR PRN IVP severe pain 04/01/18 17:15 04/08/18 17:14 04/02/18 14:11 Potassium Chloride (K-Dur) 40 meq TWICE A DAY ORAL 04/01/18 21:00 04/04/18 09:00 04/03/18 09:21 Jasen Meadows MD Apr 03, 2018 17:53
--- NOTE | 2018-04-03 18:30 | Consultation ---
DATE OF CONSULTATION: 04/03/2018 CONSULTING PHYSICIAN: Michel Quezada D.P.M. REQUESTING PHYSICIAN: Dr. Conklin. REASON FOR CONSULTATION: Diabetic foot examination, onychomycosis, and lower extremity edema. HISTORY OF PRESENT ILLNESS: The patient is a 77-year-old male, who was admitted to [facility] on 04/01/2018 for congestive heart failure and skin rash. The patient has at bedside and they are complaining of swelling in the feet as well as mycosis of the nail. The patient is also here for currently a skin rash that was diagnosed as dekq-irjl-ykvmm disease. Denies any pain in the feet. Denies any numbness in the feet. PAST MEDICAL HISTORY: Significant for diabetes mellitus, congestive heart failure, atrial fibrillation, hyperlipidemia, and gout. MEDICATIONS: Per MAR. Include Eliquis and Lasix. ALLERGIES: Has no known drug allergies. SOCIAL HISTORY: Noncontributory. FAMILY HISTORY: Noncontributory. REVIEW OF SYSTEMS: HEENT: The patient denies any headaches, blurred vision, or ringing in the ears. CARDIOVASCULAR: The patient denies any chest pain or shortness of breath. GENITOURINARY: The patient denies any urgency, frequency, burning upon urination, or hematuria. GASTROINTESTINAL: The patient denies any constipation, diarrhea, or blood in the stool. PHYSICAL EXAMINATION: VITAL SIGNS: Temperature is 98.7, pulse is 76, respiration rate is 20, blood pressure is 156/75, and saturating 97% on room air. LOWER EXTREMITY: Vascular, nonpalpable pedal pulses noted bilaterally. Feet are equally warm. There is chronic pitting edema noted in bilateral lower extremities. DERMATOLOGICAL: There is no open sores or lesions noted. There is mild superficial blistering noted on the medial right ankle. Non fluid-filled. No signs of infection noted. No pain at the sites. No ascending erythema or malodor. Digital interspaces are clear. Nails are dystrophic and elongated. NEUROLOGICAL: Protective threshold is diminished. Achilles deep tendon reflexes are 2+ bilateral. MUSCULOSKELETAL: There is no gross deformities noted. The patient states he has difficulty walking and is noted to have 3-4/5 muscle strength in anterior lateral and posterior muscle groups of bilateral lower extremities. Again, no other gross deformities noted. LABORATORY DATA: White blood cell count is 9.9, down from admission of 11.8, hemoglobin and hematocrit is 12.5 and 36.9, and platelet count is 227,000. Sedimentation rate is 52. Potassium is 3.9. BUN is 23 and 1.5. Glucose is 167. Hemoglobin A1c is 6.9. Lactic acid is 1.4 down from his admission of 2.70. Albumin is 2.2. Total protein is 6.7. No lower extremity imaging is noted. ASSESSMENT: 1. Onychomycosis. 2. Diabetes mellitus. 3. Chronic edema secondary to congestive heart failure. 4. Difficulty walking. PLAN: is at bedside and both were educated on the patient's condition and treatment. The patient to be treated as an outpatient for podiatry care and continued diabetic foot checks. My information was given to the patient and the for outpatient follow up. We will call them to set it up. Thank you for the courtesy of this consultation. Michel Quezada D.P.M. DR: YESENIA JOB#: [id number] CC:
[2018-04-03 20:00] VITALS: BP 153/88
[2018-04-03] MEDS: Latanoprost 0.005% Opth 2.5ml Soln LEFT EYE SCH (20:52)
--- NOTE | 2018-04-03 23:31 | Consultation ---
History of Present Illness General Date patient seen: Apr 03, 2018 Chief Complaint: General Complaint Present Illness HPI 77 yo male with history chf, htn, dm, afib presents with complaints of a new rash on his hands and feet. The pt stated that he wanted to leave. 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 The pt stated that he wanted to leave and denied being homeless. The pt stated that he was compliant with his meds. the pt has grandiose delusions and circumstantial. The pt is disheveled and unkept. the pt was able to understands the risks a benefits. The pt denied any psychiatric hx. The pt doesn't have si/hi Allergies: Coded Allergies: No Known Allergies (Unverified , 03/26/17) Medication History Scheduled Amiodarone Hcl* (Amiodarone Hcl*), 200 MG ORAL DAILY, (Reported) Amiodarone Hcl* (Pacerone*), 200 MG ORAL DAILY Amlodipine Besylate* (Amlodipine Besylate*), 10 MG ORAL DAILY Apixaban (Eliquis), 5 MG ORAL Q12HR Apixaban (Eliquis), 2.5 MG PO BID Atorvastatin Calcium* (Atorvastatin Calcium*), 20 MG ORAL BEDTIME, (Reported) Atorvastatin Calcium* (Atorvastatin Calcium*), 20 MG ORAL BEDTIME Cvsopygpi-Thj-4* (Efqadkvk-Jvl-6*), 1 PATCH TDERMAL QWEEK, (Reported) Docusate Sodium* (Colace*), 100 MG ORAL TWICE A DAY, (Reported) Folic Acid* (Folic Acid*), 1 MG ORAL DAILY, (Reported) Furosemide* (Lasix*), 20 MG ORAL DAILY Latanoprost* (Xalatan*), 1 DROP LEFT EYE BEDTIME, (Reported) Losartan Potassium* (Losartan Potassium*), 25 MG ORAL DAILY Losartan/Hydrochlorothiazide 100-25 Tablet (Hyzaar 100-25 Tablet), 1 TAB ORAL DAILY, (Reported) Metformin Hcl* (Metformin Hcl*), 500 MG ORAL TWICE A DAY, (Reported) Metoprolol Tartrate* (Metoprolol Tartrate*), 100 MG ORAL EVERY 12 HOURS, ( Reported) Metoprolol Tartrate* (Metoprolol Tartrate*), 50 MG ORAL EVERY 12 HOURS, ( Reported) Potassium Chloride (Potassium Chloride), 20 MEQ ORAL TWICE A DAY, (Reported) Ranitidine Hcl* (Zantac*), 150 MG ORAL TWICE A DAY, (Reported) Simvastatin (Zocor), 20 MG ORAL BEDTIME, (Reported) [jardiance], 10 MG DAILY, (Reported) Scheduled PRN Hydrocodone Bit/Acetaminophen 5-325* ([place] 5-325*), 1 TAB ORAL Q6H PRN for For Pain, (Reported) Miscellaneous Medications Timolol Maleate/Pf (Timoptic 0.5% Ocudose Drop), 1 EACH OP, (Reported) Patient History Limited by: medical condition History Provided By: Patient, Medical Record, PMD Healthcare decision maker Resuscitation status Full Code Advanced Directive on File Past Medical/Surgical History Past Medical/Surgical History: (1) Rash and nonspecific skin eruption (2) Acute hypokalemia (3) Toenail deformity (4) Overgrown toenails (5) Long toenail (6) Physical debility (7) Cellulitis (8) CHF (congestive heart failure) (9) Noncompliance (10) MARY (acute kidney injury) (11) Atrial fibrillation with RVR (12) CVA (cerebral vascular accident) (13) Diabetes (14) Vasculitis Review of Systems Psychiatric: Reports: prior hx, other - delusional grandiose Physical Exam General Appearance: no apparent distress, alert Neurologic: oriented x 3, responsive, depressed affect Last 24 Hour Vital Signs Date Time Temp Pulse Resp B/P (MAP) Pulse Ox O2 Delivery O2 Flow Rate FiO2 04/03/18 16:00 82 04/03/18 16:00 98.4 81 20 146/83 (104) 96 04/03/18 12:00 98.7 76 20 156/75 (102) 97 04/03/18 12:00 81 04/03/18 09:00 Room Air 04/03/18 08:00 84 04/03/18 08:00 98.9 84 18 146/81 (102) 98 04/03/18 04:00 98.8 92 20 141/88 (105) 95 04/03/18 04:00 73 04/03/18 00:00 98.4 70 20 136/86 (103) 95 04/03/18 00:00 69 Intake and Output 04/02/18 04/03/18 19:00 07:00 Intake Total 975.0 ml Output Total 575 ml 2200 ml Balance 400.0 ml -2200 ml Intake Oral 520 ml IV Total 455.0 ml Output Urine Total 575 ml 2200 ml # Voids 1 6 Laboratory Tests Test 04/03/18 15:30 Sodium Level 140 MMOL/L (136-145) Potassium Level 3.9 MMOL/L (3.5-5.1) Chloride Level 102 MMOL/L (98-107) Carbon Dioxide Level 30 MMOL/L (21-32) Anion Gap 8 mmol/L (5-15) Blood Urea Nitrogen 24 mg/dL (7-18) H Creatinine 1.6 MG/DL (0.55-1.30) H Estimat Glomerular Filtration Rate mL/min (>60) Glucose Level 136 MG/DL (74-106) H Calcium Level 9.0 MG/DL (8.5-10.1) Height (Feet): 5 Height (Inches): 8.00 Weight (Pounds): 255 Medications Current Medications Medications (Trade) Dose Ordered Sig/Vini Route PRN Reason Start Time Stop Time Status Last Admin Dose Admin Acetaminophen (Tylenol) 650 mg Q6H PRN ORAL Mild Pain/Temp > 100.5 04/01/18 17:15 05/01/18 17:14 Acetylcysteine (Mucomyst) 200 mg Q6HRT PRN HHN For Cough 04/03/18 08:30 05/03/18 08:29 Albuterol/ Ipratropium (Albuterol/ Ipratropium) 3 ml Q4HRT PRN HHN Shortness of Breath 04/03/18 08:30 04/08/18 08:29 Amiodarone HCl (Cordarone) 200 mg DAILY ORAL 04/02/18 09:00 05/02/18 08:59 04/03/18 09:21 Apixaban (Eliquis) 5 mg BID ORAL 04/02/18 09:00 05/02/18 08:59 04/03/18 17:51 Dextrose (Dextrose 50%) 25 ml Q30M PRN IV Hypoglycemia 04/01/18 13:45 05/01/18 13:44 Dextrose (Dextrose 50%) 50 ml Q30M PRN IV Hypoglycemia 04/01/18 13:45 05/01/18 13:44 Furosemide (Lasix) 40 mg EVERY 12 HOURS IV 04/01/18 21:00 05/01/18 20:59 04/03/18 20:53 Insulin Aspart (NovoLOG) BEFORE MEALS AND HS SUBQ 04/01/18 16:30 05/01/18 16:29 04/03/18 20:55 Latanoprost (Xalatan) 1 drop BEDTIME LEFT EYE 04/02/18 21:00 05/02/18 20:59 04/03/18 20:52 Morphine Sulfate (Morphine Sulfate) 1 mg Q6HR PRN IVP severe pain 04/01/18 17:15 04/08/18 17:14 04/02/18 14:11 Potassium Chloride (K-Dur) 40 meq TWICE A DAY ORAL 04/01/18 21:00 04/04/18 09:00 04/03/18 17:51 Assessment/Plan Status: stable Assessment/Plan Delusional disorder R/o schizophrenia The pt has capacity to leave ama The pt is reluctant to take medications The pt is not at imminent dts/dto Alfa Moreau MD Apr 03, 2018 23:31
[2018-04-04] VITALS: BP 156/85
[2018-04-04 04:00] VITALS: BP 142/76
[2018-04-04] MEDS: NovoLOG Insulin Flexpen SUBQ SCH ×4 (06:11→20:41)
[2018-04-04] MEDS ORDERED: AMIODARONE HCL400 M1 ORAL (07:41)
[2018-04-04] MEDS ORDERED: ELIQUIS2.5 MG ORAL (07:48)
[2018-04-04] MEDS ORDERED: PACERONE200 MG ORAL (07:48)
[2018-04-04] MEDS ORDERED: ELIQUIS5 MG PO (07:53)
[2018-04-04] MEDS ORDERED: LOSARTAN POTASS25 MG ORAL (07:53)
[2018-04-04] MEDS ORDERED: AMLODIPINE BESY10 MG ORAL (07:53)
[2018-04-04] MEDS ORDERED: FUROSEMIDE20 M1 ORAL (07:53)
[2018-04-04] MEDS ORDERED: ATORVASTATIN CA20 MG ORAL (07:53)
--- NOTE | 2018-04-04 07:54 | Discharge Instructions ---
Discharge Instructions Discharge Instructions Services at Discharge: physical therapy, home health services Follow Up Orders f/u with pcp in 1 week For Congestive Heart Failure Reminder Report to your physician any weight gain of 5 pounds or more in one week. David Conklin MD Apr 04, 2018 07:54
[2018-04-04 08:00] VITALS: BP 171/82
--- NOTE | 2018-04-04 08:02 | Discharge Summary ---
Discharge Summary Hospital Course Date of Admission Apr 01, 2018 at 13:05 Date of Discharge 04/04/18 Admitting Diagnosis CHF, skin rash HPI Jaquan Humphreys is a 77 year old male who was admitted on Apr 01, 2018 at 13:05 for Congestive Heart Failure, Skin Rash Hospital Course 77 yo male with h/o chf, htn, dm, afib presents with complaints of a new rash on his hands and feet. States he noticed this for the past 3 or 4 days. Patient is a poor historian and admits to medication noncompliance. Patient states he has been living in a hotel room for the past week. Denies any itchiness, states there mild pain when making a fist with his hand. Denies any fevers, chills, nausea/vomiting, cp/sob, diarrhea/constipation/abd pain. Patient denies any recent travels. ID Dr. garnett was consulted and evaluated the patient. diagnosed with Yqep-fahi-uui-mouth disease ( no oral rash) bilateral hands and feet rash,/ Arthralgia , papular rash over the bilateral feet and hands. patient was taken off abx. and per ID patient is stable for dc. PT evaluated patient and rec HH SW evaluated patient and states patient has a PCP and can be dc'd back to the hotel he was staying at patient was evaluated by cardiology, home cardiac meds resumed and scripts printed out for patient. 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 concerns for homelessness as well ICD Codes: R53.81 - Other malaise SNOMED: 74239094 (2) Cellulitis Assessment & Plan: cellulitis of b/l hands and feet due to Txwr-bmcx-zhu-mouth disease, per ID, no need for abx. bcx x 2 ngtd s/p permethrin for scabies concerns ICD Codes: L03.90 - Cellulitis, unspecified SNOMED: 825714976 Qualifiers: (3) Acute hypokalemia Assessment & Plan: resolved monitor daily bmp's ICD Codes: E87.6 - Hypokalemia SNOMED: 03563204 (4) CHF (congestive heart failure) Assessment & Plan: stable cont home meds amio lasix eliquis appreciate cards recs ICD Codes: I50.9 - Heart failure, unspecified SNOMED: 60726146 Qualifiers: Qualified Codes: I50.22 - Chronic systolic (congestive) heart failure (5) Noncompliance Assessment & Plan: educated on compliance for over 15 mins patient states understanding ICD Codes: Z91.19 - Patient's noncompliance with other medical treatment and regimen SNOMED: 7184173 (6) MARY (acute kidney injury) Assessment & Plan: unsure of baseline 1.6 monitor closely ICD Codes: N17.9 - Acute kidney failure, unspecified SNOMED: 75509569 (7) Atrial fibrillation with RVR Assessment & Plan: rate controlled eliquis home amio ICD Codes: I48.91 - Unspecified atrial fibrillation SNOMED: 478765492664716 (8) CVA (cerebral vascular accident) Assessment & Plan: chronic resume home meds ICD Codes: I63.9 - Cerebral infarction, unspecified SNOMED: 966664359 Qualifiers: Qualified Codes: I63.9 - Cerebral infarction, unspecified (9) Diabetes Assessment & Plan: iss accuchecks check hgba1c ICD Codes: E11.9 - Type 2 diabetes mellitus without complications SNOMED: 97749105 Qualifiers: Qualified Codes: E11.9 - Type 2 diabetes mellitus without complications; 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 Status: stable, progressing I have spent over 38 minutes in evaluating and arranging the discharge of this patient along with counseling time patient is stable for dc f/u with pcp in 1 week dc with home health PT Discharge Medications New Medications: Amiodarone Hcl* (Pacerone*) 200 Mg Tablet 200 MG ORAL DAILY for 30 Days, #30 TAB Changed Medications: Apixaban (Eliquis) 5 Mg Tablet 2.5 MG PO BID for 30 Days, #30 TAB (Changed from: 5 MG) Continued Medications: Amiodarone Hcl* (Amiodarone Hcl*) 400 Mg Tablet 200 MG ORAL DAILY for 30 Days, #30 TAB (This prescription has been renewed) Amlodipine Besylate* (Amlodipine Besylate*) 10 Mg Tablet 10 MG ORAL DAILY for 30 Days, #30 TAB (This prescription has been renewed) Apixaban (Eliquis) 2.5 Mg Tablet 5 MG ORAL Q12HR for 30 Days, #30 TAB (This prescription has been renewed) Atorvastatin Calcium* (Atorvastatin Calcium*) 20 Mg Tablet 20 MG ORAL BEDTIME for 30 Days, #30 TAB (This prescription has been renewed) Furosemide* (Lasix*) 20 Mg Tablet 20 MG ORAL DAILY for 30 Days, #30 TAB (This prescription has been renewed) [jardiance] () 10 MG DAILY Latanoprost* (Xalatan*) 2.5 Ml Drops 1 DROP LEFT EYE BEDTIME, #2.5 ML 0 Refills Losartan Potassium* (Losartan Potassium*) 25 Mg Tablet 25 MG ORAL DAILY for 30 Days, #30 TAB (This prescription has been renewed) Metformin Hcl* (Metformin Hcl*) 500 Mg Tablet 500 MG ORAL TWICE A DAY, TAB Timolol Maleate/Pf (Timoptic 0.5% Ocudose Drop) 1 Each Droperette 1 EACH OP Discontinued Medications: Atorvastatin Calcium* (Atorvastatin Calcium*) 20 Mg Tablet 20 MG ORAL BEDTIME, TAB Envbwmuam-Vaz-9* (Tflsyvsg-Zei-0*) 1 Each Patch.tdwk 1 PATCH TDERMAL QWEEK, PATCH Docusate Sodium* (Colace*) 100 Mg Capsule 100 MG ORAL TWICE A DAY, CAP Folic Acid* (Folic Acid*) 1 Mg Tablet 1 MG ORAL DAILY, TAB Hydrocodone Bit/Acetaminophen 5-325* ([place] 5-325*) 1 Each Tablet 1 TAB ORAL Q6H PRN for For Pain, #10 TAB 0 Refills Losartan/Hydrochlorothiazide 100-25 Tablet (Hyzaar 100-25 Tablet) 1 Each Tablet 1 TAB ORAL DAILY, TAB Metoprolol Tartrate* (Metoprolol Tartrate*) 100 Mg Tablet 100 MG ORAL EVERY 12 HOURS, TAB Metoprolol Tartrate* (Metoprolol Tartrate*) 50 Mg Tablet 50 MG ORAL EVERY 12 HOURS, TAB Potassium Chloride (Potassium Chloride) 20 Meq Packet 20 MEQ ORAL TWICE A DAY, #60 PKT 0 Refills Ranitidine Hcl* (Zantac*) 150 Mg Tablet 150 MG ORAL TWICE A DAY, TAB Simvastatin (Zocor) 20 Mg Tablet 20 MG ORAL BEDTIME, TAB Discharge Condition Upon Discharge: stable Discharge Disposition Patient was discharged to Discharge Diagnoses: (1) Physical debility (2) Cellulitis (3) CHF (congestive heart failure) (4) Noncompliance (5) MARY (acute kidney injury) (6) Atrial fibrillation with RVR (7) CVA (cerebral vascular accident) (8) Diabetes Discharge Instructions Discharge Instructions Services Upon Discharge: physical therapy, home health services David Conklin MD Apr 04, 2018 08:02
[2018-04-04] MEDS: Eliquis 2.5mg tablet ORAL SCH ×2 (09:00→18:00)
[2018-04-04] MEDS: Amiodarone 200mg tab ORAL SCH (09:01)
[2018-04-04 12:00] VITALS: BP 171/85
--- NOTE | 2018-04-04 15:57 | Infectious Diseases Prog Note ---
Assessment/Plan Assessment/Plan ASSESSMENT The patient is a 77-year-old male with Pvmj-bvkf-vmd-mouth disease ( no oral rash) bilateral hands and feet rash,/ Arthralgia improving papular rash improving Doubt scabies Doubt pneumonia. The patient does not have clinical significant cough CXR: right basilar atelectasis versus consolidatio Afebrile nl WBC RPR : Neg Diabetes. CHF Left ventricular ejection fraction estimated to be 55-60 % Atrial fibrillation. Hyperlipidemia. Gout. P: Monitor pt off of AB RX 04/03 SP Zosyn d# 1 Sp Elimite x 1 Monitor CBC. Monitor BMP contact isolation ( Enterovirus) DC to [facility] ok to DC from ID stand point ( no evid of scabies) Subjective Allergies: Coded Allergies: No Known Allergies (Unverified , 03/26/17) Subjective no new complain Objective Vital Signs Last 24 Hour Vital Signs Date Time Temp Pulse Resp B/P (MAP) Pulse Ox O2 Delivery O2 Flow Rate FiO2 04/04/18 13:29 73 171/85 04/04/18 12:00 99.0 73 20 171/85 (113) 98 04/04/18 11:55 76 04/04/18 09:00 Room Air 04/04/18 08:00 83 04/04/18 08:00 99.0 83 20 171/82 (111) 96 04/04/18 04:00 80 04/04/18 04:00 98.9 79 20 142/76 (98) 97 04/04/18 00:00 74 04/04/18 00:00 99.4 76 20 156/85 (108) 97 04/03/18 21:00 Room Air 04/03/18 20:00 81 04/03/18 20:00 99.4 79 18 153/88 (109) 98 04/03/18 16:00 82 04/03/18 16:00 98.4 81 20 146/83 (104) 96 Height (Feet): 5 Height (Inches): 8.00 Weight (Pounds): 257 HEENT: anicteric Respiratory/Chest: normal breath sounds Cardiovascular: normal rate Abdomen: non distended Microbiology Date/Time Source Procedure Growth Status 04/01/18 21:15 Blood Blood Culture - Preliminary NO GROWTH AFTER 48 HOURS Resulted 04/01/18 21:00 Blood Blood Culture - Preliminary NO GROWTH AFTER 48 HOURS Resulted Current Medications Medications (Trade) Dose Ordered Sig/Vini Route PRN Reason Start Time Stop Time Status Last Admin Dose Admin Acetaminophen (Tylenol) 650 mg Q6H PRN ORAL Mild Pain/Temp > 100.5 04/01/18 17:15 05/01/18 17:14 Acetylcysteine (Mucomyst) 200 mg Q6HRT PRN HHN For Cough 04/03/18 08:30 05/03/18 08:29 Albuterol/ Ipratropium (Albuterol/ Ipratropium) 3 ml Q4HRT PRN HHN Shortness of Breath 04/03/18 08:30 04/08/18 08:29 Amiodarone HCl (Cordarone) 200 mg DAILY ORAL 04/02/18 09:00 05/02/18 08:59 04/04/18 09:01 Amlodipine Besylate (Norvasc) 10 mg DAILY ORAL 04/04/18 12:27 05/04/18 12:26 04/04/18 13:29 Apixaban (Eliquis) 5 mg BID ORAL 04/02/18 09:00 05/02/18 08:59 04/04/18 09:00 Dextrose (Dextrose 50%) 25 ml Q30M PRN IV Hypoglycemia 04/01/18 13:45 05/01/18 13:44 Dextrose (Dextrose 50%) 50 ml Q30M PRN IV Hypoglycemia 04/01/18 13:45 05/01/18 13:44 Furosemide (Lasix) 40 mg EVERY 12 HOURS IV 04/01/18 21:00 05/01/18 20:59 04/04/18 09:01 Insulin Aspart (NovoLOG) BEFORE MEALS AND HS SUBQ 04/01/18 16:30 05/01/18 16:29 04/04/18 06:11 Latanoprost (Xalatan) 1 drop BEDTIME LEFT EYE 04/02/18 21:00 05/02/18 20:59 04/03/18 20:52 Morphine Sulfate (Morphine Sulfate) 1 mg Q6HR PRN IVP severe pain 04/01/18 17:15 04/08/18 17:14 04/02/18 14:11 Jasen Meadows MD Apr 04, 2018 15:57
[2018-04-04 16:00] VITALS: BP 161/84
--- NOTE | 2018-04-04 17:35 | Cardiology Progress Note ---
Assessment/Plan Status: stable Assessment/Plan Assessment/Plan Cellulitis AFIB HTN DM CHF diastolic LE edema MARY Medication non compliance hx of CVA Plan: Cultures Permethrin for scabies Empiric Abx - ID consulted CHF - echo in 2017 with diastolic dysfunction - continue maintenance lasix -> transition to PO Echocardiogram to evaluate filling pressures -> normal LV function, no changes from 2017 Replete electrolytes Monitor renal function, nephrology consult Patient current in NSR, continue telemetry Continue anticoagulation with Eliquis Continue amiodarone to maintain normal rhythm No indication for cardiac cath or ischemia evaluation at this time ok to discharge Subjective Cardiovascular: Reports: no symptoms Respiratory: Reports: no symptoms Gastrointestinal/Abdominal: Reports: no symptoms Genitourinary: Reports: no symptoms Subjective No acute events, no distress, no complaints, he wants to change his diet/food not good, afebrile, vitals stable, plan for discharge today with close follow up with pcp Objective Last 24 Hour Vital Signs Date Time Temp Pulse Resp B/P (MAP) Pulse Ox O2 Delivery O2 Flow Rate FiO2 04/04/18 16:00 98.7 77 20 161/84 (109) 97 04/04/18 13:29 73 171/85 04/04/18 12:00 99.0 73 20 171/85 (113) 98 04/04/18 11:55 76 04/04/18 09:00 Room Air 04/04/18 08:00 83 04/04/18 08:00 99.0 83 20 171/82 (111) 96 04/04/18 04:00 80 04/04/18 04:00 98.9 79 20 142/76 (98) 97 04/04/18 00:00 74 04/04/18 00:00 99.4 76 20 156/85 (108) 97 04/03/18 21:00 Room Air 04/03/18 20:00 81 04/03/18 20:00 99.4 79 18 153/88 (109) 98 General Appearance: no apparent distress, alert EENT: PERRL/EOMI, normal ENT inspection Neck: non-tender, normal alignment, supple, normal inspection Rhythm: NSR Cardiovascular: normal peripheral pulses, normal rate, regular rhythm Respiratory/Chest: chest wall non-tender, lungs clear, normal breath sounds Abdomen: normal bowel sounds, non tender, soft, no organomegaly Extremities: normal range of motion, non-tender, normal inspection 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
[2018-04-04 20:00] VITALS: BP 156/87
--- NOTE | 2018-04-04 20:28 | General Progress Note ---
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 the pt stated that he has a house then stated that he lives in a hotel the pt at some point asked to leave we explained that he will go to a rehab Objective Last 24 Hour Vital Signs Date Time Temp Pulse Resp B/P (MAP) Pulse Ox O2 Delivery O2 Flow Rate FiO2 04/04/18 16:00 98.7 77 20 161/84 (109) 97 04/04/18 15:21 71 04/04/18 13:29 73 171/85 04/04/18 12:00 99.0 73 20 171/85 (113) 98 04/04/18 11:55 76 04/04/18 09:00 Room Air 04/04/18 08:00 83 04/04/18 08:00 99.0 83 20 171/82 (111) 96 04/04/18 04:00 80 04/04/18 04:00 98.9 79 20 142/76 (98) 97 04/04/18 00:00 74 04/04/18 00:00 99.4 76 20 156/85 (108) 97 04/03/18 21:00 Room Air Intake and Output 04/03/18 04/04/18 19:00 07:00 Intake Total 720 ml Output Total 1000 ml 700 ml Balance -280 ml -700 ml Intake Oral 720 ml Output Urine Total 1000 ml 700 ml Height (Feet): 5 Height (Inches): 8.00 Weight (Pounds): 257 General Appearance: no apparent distress, alert Neurologic: oriented x 3, responsive, depressed affect Alfa Moreau MD Apr 04, 2018 20:28
[2018-04-04] MEDS: Latanoprost 0.005% Opth 2.5ml Soln LEFT EYE SCH (20:41)
[2018-04-05] VITALS: BP 160/89
[2018-04-05 04:30] VITALS: BP 161/83
[2018-04-05] MEDS ORDERED: HydrALAZINE 50mg tab ORAL SCH (05:20)
[2018-04-05] MEDS: NovoLOG Insulin Flexpen SUBQ SCH ×2 (06:09→11:40)
[2018-04-05 08:00] VITALS: BP 131/77
--- NOTE | 2018-04-05 08:41 | Discharge Summary ---
Discharge Summary Hospital Course Date of Admission Apr 01, 2018 at 13:05 Date of Discharge 04/05/18 Admitting Diagnosis CHF, skin rash HPI Jaquan Humphreys is a 77 year old male who was admitted on Apr 01, 2018 at 13:05 for Congestive Heart Failure, Skin Rash Hospital Course 77 yo male with h/o chf, htn, dm, afib presents with complaints of a new rash on his hands and feet. States he noticed this for the past 3 or 4 days. Patient is a poor historian and admits to medication noncompliance. Patient states he has been living in a hotel room for the past week. Denies any itchiness, states there mild pain when making a fist with his hand. Denies any fevers, chills, nausea/vomiting, cp/sob, diarrhea/constipation/abd pain. Patient denies any recent travels. ID Dr. garnett was consulted and evaluated the patient. diagnosed with Nwqg-otfh-rme-mouth disease ( no oral rash) bilateral hands and feet rash,/ Arthralgia , papular rash over the bilateral feet and hands. patient was taken off abx. and per ID patient is stable for dc. PT evaluated patient and rec HH SW evaluated patient and states patient has a PCP and can be dc'd back to the hotel he was staying at patient was evaluated by cardiology, home cardiac meds resumed and scripts printed out for patient. 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 concerns for homelessness as well ICD Codes: R53.81 - Other malaise SNOMED: 80934515 (2) Cellulitis Assessment & Plan: cellulitis of b/l hands and feet due to Qviq-pqsi-cyc-mouth disease, per ID, no need for abx. bcx x 2 ngtd s/p permethrin for scabies concerns ICD Codes: L03.90 - Cellulitis, unspecified SNOMED: 318957831 Qualifiers: (3) Acute hypokalemia Assessment & Plan: resolved monitor daily bmp's ICD Codes: E87.6 - Hypokalemia SNOMED: 28656452 (4) CHF (congestive heart failure) Assessment & Plan: stable cont home meds amio lasix eliquis appreciate cards recs ICD Codes: I50.9 - Heart failure, unspecified SNOMED: 16885452 Qualifiers: Qualified Codes: I50.22 - Chronic systolic (congestive) heart failure (5) Noncompliance Assessment & Plan: educated on compliance for over 15 mins patient states understanding ICD Codes: Z91.19 - Patient's noncompliance with other medical treatment and regimen SNOMED: 9651556 (6) MARY (acute kidney injury) Assessment & Plan: unsure of baseline 1.6 monitor closely ICD Codes: N17.9 - Acute kidney failure, unspecified SNOMED: 55779848 (7) Atrial fibrillation with RVR Assessment & Plan: rate controlled eliquis home amio ICD Codes: I48.91 - Unspecified atrial fibrillation SNOMED: 187992097752793 (8) CVA (cerebral vascular accident) Assessment & Plan: chronic resume home meds ICD Codes: I63.9 - Cerebral infarction, unspecified SNOMED: 494888589 Qualifiers: Qualified Codes: I63.9 - Cerebral infarction, unspecified (9) Diabetes Assessment & Plan: iss accuchecks check hgba1c ICD Codes: E11.9 - Type 2 diabetes mellitus without complications SNOMED: 01376100 Qualifiers: Qualified Codes: E11.9 - Type 2 diabetes mellitus without complications; 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 Status: stable, progressing I have spent over 39 minutes in evaluating and arranging the discharge of this patient along with counseling time patient is stable for dc f/u with pcp in 1 week dc with home health PT Discharge Condition Upon Discharge: stable Discharge Disposition Patient was discharged to Discharge Diagnoses: (1) Physical debility (2) Rash and nonspecific skin eruption (3) Toenail deformity (4) CHF (congestive heart failure) (5) Noncompliance (6) MARY (acute kidney injury) (7) Atrial fibrillation with RVR (8) CVA (cerebral vascular accident) (9) Diabetes (10) Acute hypokalemia Discharge Instructions Discharge Instructions Services Upon Discharge: physical therapy, home health services David Conklin MD Apr 05, 2018 08:41
[2018-04-05] MEDS: Eliquis 2.5mg tablet ORAL SCH (08:58)
[2018-04-05] MEDS: Amiodarone 200mg tab ORAL SCH (08:58)
--- NOTE | 2018-04-05 09:24 | Infectious Diseases Prog Note ---
Assessment/Plan Assessment/Plan ASSESSMENT The patient is a 77-year-old male with Xikk-gtfw-aio-mouth disease ( no oral rash) bilateral hands and feet rash,/ Arthralgia improving papular rash improving Doubt scabies Doubt pneumonia. The patient does not have clinical significant cough CXR: right basilar atelectasis versus consolidatio Afebrile nl WBC RPR : Neg Diabetes. CHF Left ventricular ejection fraction estimated to be 55-60 % Atrial fibrillation. Hyperlipidemia. Gout. P: Monitor pt off of AB RX 04/03 SP Zosyn d# 1 Sp Elimite x 1 Monitor CBC. Monitor BMP contact isolation ( Enterovirus) DC to [facility] ok to DC from ID stand point ( no evid of scabies) Subjective Allergies: Coded Allergies: No Known Allergies (Unverified , 03/26/17) Subjective afebrile no leukocytosis Objective Vital Signs Last 24 Hour Vital Signs Date Time Temp Pulse Resp B/P (MAP) Pulse Ox O2 Delivery O2 Flow Rate FiO2 04/05/18 08:58 90 131/77 04/05/18 08:00 99.5 90 21 131/77 (95) 98 04/05/18 07:14 100 21 Room Air 21 04/05/18 05:31 161/83 04/05/18 04:30 99.0 80 20 161/83 (109) 98 04/05/18 04:00 77 04/05/18 00:00 99.0 75 20 160/89 (112) 98 04/05/18 00:00 71 04/04/18 23:35 72 20 Room Air 04/04/18 21:00 Room Air 04/04/18 20:00 77 04/04/18 20:00 98.1 74 20 156/87 (110) 99 04/04/18 16:00 98.7 77 20 161/84 (109) 97 04/04/18 15:21 71 04/04/18 13:29 73 171/85 04/04/18 12:00 99.0 73 20 171/85 (113) 98 04/04/18 11:55 76 Height (Feet): 5 Height (Inches): 8.00 Weight (Pounds): 255 Objective General Appearance: WD/WN, no apparent distress, alert EENT: PERRL/EOMI, normal ENT inspection, TMs normal, pharynx normal Neck: non-tender, normal alignment, supple, normal inspection Cardiovascular: normal peripheral pulses, normal rate, regular rhythm Respiratory/Chest: chest wall non-tender, lungs clear, normal breath sounds, no respiratory distress, no accessory muscle use Abdomen: normal bowel sounds, non tender, soft, no organomegaly, no mass Extremities: normal range of motion, non-tender, normal inspection, no calf tenderness 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, no motor/sensory deficits, alert, oriented x 3, responsive Skin: normal pigmentation, warm/dry Current Medications Medications (Trade) Dose Ordered Sig/Vini Route PRN Reason Start Time Stop Time Status Last Admin Dose Admin Acetaminophen (Tylenol) 650 mg Q6H PRN ORAL Mild Pain/Temp > 100.5 04/01/18 17:15 05/01/18 17:14 Acetylcysteine (Mucomyst) 200 mg Q6HRT PRN HHN For Cough 04/03/18 08:30 05/03/18 08:29 Albuterol/ Ipratropium (Albuterol/ Ipratropium) 3 ml Q4HRT PRN HHN Shortness of Breath 04/03/18 08:30 04/08/18 08:29 Amiodarone HCl (Cordarone) 200 mg DAILY ORAL 04/02/18 09:00 05/02/18 08:59 04/05/18 08:58 Amlodipine Besylate (Norvasc) 10 mg DAILY ORAL 04/04/18 12:27 05/04/18 12:26 04/05/18 08:58 Apixaban (Eliquis) 5 mg BID ORAL 04/02/18 09:00 05/02/18 08:59 04/05/18 08:58 Dextrose (Dextrose 50%) 25 ml Q30M PRN IV Hypoglycemia 04/01/18 13:45 05/01/18 13:44 Dextrose (Dextrose 50%) 50 ml Q30M PRN IV Hypoglycemia 04/01/18 13:45 05/01/18 13:44 Furosemide (Lasix) 40 mg EVERY 12 HOURS IV 04/01/18 21:00 05/01/18 20:59 04/05/18 08:59 Insulin Aspart (NovoLOG) BEFORE MEALS AND HS SUBQ 04/01/18 16:30 05/01/18 16:29 04/05/18 06:09 Latanoprost (Xalatan) 1 drop BEDTIME LEFT EYE 04/02/18 21:00 05/02/18 20:59 04/04/18 20:41 Morphine Sulfate (Morphine Sulfate) 1 mg Q6HR PRN IVP severe pain 04/01/18 17:15 04/08/18 17:14 04/02/18 14:11 Katlyn Giles M.D. Apr 05, 2018 09:24
[2018-04-05 11:59] VITALS: BP 139/76
== END 2018-04-05 13:15 | DRG 866 ==
LOC: EDBD 12:24 → EMR 12:56 → 2E 13:05 → EDBEDREQ 13:35
DX: B08.4 Enteroviral vesicular stomatitis with exanthem (principal); N17.9 Acute kidney failure, unspecified; L03.114 Cellulitis of left upper limb; L03.113 Cellulitis of right upper limb; L03.116 Cellulitis of left lower limb; L03.115 Cellulitis of right lower limb; I50.32 Chronic diastolic (congestive) heart failure; E11.9 Type 2 diabetes mellitus without complications; I48.91 Unspecified atrial fibrillation; I11.0 Hypertensive heart disease with heart failure; M10.9 Gout, unspecified; E87.6 Hypokalemia; B35.1 Tinea unguium; R26.2 Difficulty in walking, not elsewhere classified; F22 Delusional disorders; Z91.14 Patient's other noncompliance with medication regimen; Z86.73 Personal history of transient ischemic attack (TIA), and cerebral infarction without residual deficits
CPT/HCPCS: 36415; 71045; 80048; 80053; 81003; 82550; 82553; 82962; 83036; 83605; 83735; 84100; 84484; 85007; 85025; 85610; 85651; 85730; 86592; 87040; 93005; 93306; 94664; 96365; 96366; 99285; J1815; J8499